=== PATIENT | male | born 1940 | race Caucasian/White ===

== ENCOUNTER → 2017-10-18 | Outpatient (CLI) | payer MEDICARE, OTHER ==
--- NOTE | 2017-10-18 15:07 | RADIOLOGY REPORT (SQ) ---
EXAM DESCRIPTION: CHEST PA/LAT COMPLETED DATE/TIME: 10/18/2017 2:41 pm REASON FOR STUDY: J20.9 ACUTE BRONCHITIS, UNSPECIFIED COMPARISON: 05/31/2009. EXAM PARAMETERS: NUMBER OF VIEWS: two views TECHNIQUE: Digital Frontal and Lateral radiographic views of the chest acquired. RADIATION DOSE: NA LIMITATIONS: none FINDINGS: LUNGS AND PLEURA: No opacities, masses or pneumothorax. No pleural effusion. MEDIASTINUM AND HILAR STRUCTURES: No masses or contour abnormalities. HEART AND VASCULAR STRUCTURES: Heart normal size. No evidence for failure. BONES: No acute findings. HARDWARE: None in the chest. OTHER: No other significant finding. IMPRESSION: NO SIGNIFICANT RADIOGRAPHIC FINDING IN THE CHEST. TECHNICAL DOCUMENTATION: JOB ID: [id number] [employer]- All Rights Reserved
== END ==
LOC: RAD 14:24
PROVIDERS: ATTEND Physician Assistant
DX: J20.9 Acute bronchitis, unspecified (principal)
CPT/HCPCS: 71020

== ENCOUNTER → 2019-09-01 | Outpatient (CLI) | payer MEDICARE, OTHER ==
[~2019-09-01] MED LIST: ALBUTEROL SULFATE 0.083% NEB 2.5 MG/3 ML AMPUL NEB ONE
== END ==
LOC: RT 08:13
PROVIDERS: ATTEND Physician Assistant
DX: J45.30 Mild persistent asthma, uncomplicated (principal); J43.9 Emphysema, unspecified; I10 Essential (primary) hypertension
CPT/HCPCS: 94729; 94727; 94060; A9270

== ENCOUNTER 2020-05-10 11:33 | Inpatient (IN) | payer OTHER, MEDICARE ==
[2020-05-10 11:57] LABS: ABSOLUTE BASOPHILS # (AUTO) 0.1 10^3/uL (0.0-0.2); ABSOLUTE LYMPHOCYTES (AUTO) 1.8 10^3/uL (0.5-4.7); ABSOLUTE MONOCYTES (AUTO) 1.2 10^3/uL (0.1-1.4); ABSOLUTE NEUT (AUTO) 8.3 10^3/uL (1.7-8.2); BASOPHILS % (AUTO) 0.7 % (0-2); EOSINOPHILS % (AUTO) 0.2 % (0-6); HEMATOCRIT 42.3 % (37.9-51.0); HEMOGLOBIN 14.3 g/dL (13.5-17.0); MEAN CORPUSCULAR HGB CONC 33.8 g/dL (32.0-36.0); MEAN CORPUSCULAR VOLUME 92 fl (80-97); MONOCYTES % (AUTO) 10.5 % (3-13); PLATELET COUNT 198 10^3/uL (150-450); RED CELL DISTRIBUTION WIDTH 14.1 % (11.5-14.0); SEGMENTED NEUTROPHILS % (AUTO) 72.6 % (42-78); TOTAL CELLS COUNTED % (AUTO) 100 %; WHITE BLOOD COUNT 11.5 10^3/uL (4.0-10.5)
[2020-05-10 12:16] LABS: ALKALINE PHOSPHATASE 65 U/L (38-126); ANION GAP 6 (5-19); ASPARTATE AMINO TRANSFERASE 47 U/L (17-59); BILIRUBIN,DIRECT 0.2 mg/dL (0.0-0.4); BILIRUBIN,TOTAL 0.9 mg/dL (0.2-1.3); BLOOD UREA NITROGEN 24 mg/dL (7-20); CALCIUM 8.6 mg/dL (8.4-10.2); CARBON DIOXIDE 28 mmol/L (22-30); CHLORIDE 99 mmol/L (98-107); GLUCOSE 131 mg/dL (75-110); POTASSIUM 4.7 mmol/L (3.6-5.0); TOTAL PROTEIN 6.8 g/dL (6.3-8.2)
--- NOTE | 2020-05-10 12:21 | RADIOLOGY REPORT (SQ) ---
EXAM DESCRIPTION: CHEST SINGLE VIEW IMAGES COMPLETED DATE/TIME: 05/10/2020 12:07 pm REASON FOR STUDY: shortness of breath COMPARISON: 10/18/2017 EXAM PARAMETERS: NUMBER OF VIEWS: One view. TECHNIQUE: Single frontal radiographic view of the chest acquired. RADIATION DOSE: NA LIMITATIONS: None. FINDINGS: LUNGS AND PLEURA: Bilateral peripheral interstitial airspace disease in the right upper lo be and left base. Findings may represent a viral pneumonitis. No definite effusions. MEDIASTINUM AND HILAR STRUCTURES: No masses. Contour normal. HEART AND VASCULAR STRUCTURES: Heart normal in size. Normal vasculature. BONES: No acute findings. HARDWARE: None in the chest. OTHER: No other significant finding. IMPRESSION: Patchy bilateral peripheral airspace disease. This may represent viral pneumonitis. At ypical pneumonia is also a possibility. TECHNICAL DOCUMENTATION: JOB ID: [id number] [email or web address]- All Rights Reserved Reading location - IP/workstation name: [email or web address]
[2020-05-10] MEDS ORDERED: NORMAL SALINE IV ONE (15:02)
[2020-05-10] MEDS ORDERED: CEFTRIAXONE 2 GM/D5W RTU 2 GM/50 ML RTUPB IV ONE (15:04)
[2020-05-10] MEDS ORDERED: AZITHROMYCIN 250 MG TABLET PO ONE (15:04)
--- NOTE | 2020-05-10 15:20 | ER Document Report ---
ED General - General Chief Complaint: Shortness Of Breath Stated Complaint: SHORTNESS OF BREATH Time Seen by Provider: 05/10/20 14:00 Mode of Arrival: Medic Information source: Patient TRAVEL OUTSIDE OF THE [place] IN LAST 30 DAYS: No - HPI Notes: Patient presents complaining of shortness of breath and generalized body aches. He states this is been going on for 3 to 4 days. He states that he believes his son-in-law may be positive for COVID and that he has been around his son-in-law. He went to his primary care doctor's office just before arriving here and was noticed to be hypoxic with an oxygen saturation in the 80s. He was therefore referred to emergency department for further care. He states he has had a nonproductive cough and congestion as well. He denies vomiting or diarrhea. He is unsure if he has had a fever but states he has had chills. Symptoms have been constant and moderate to severe. They are worse with exertion and better with rest. The body aches radiate throughout his body. - Related Data Allergies/Adverse Reactions: No Known Allergies Allergy (Verified 05/10/20 12:09) Past Medical History - General Information source: Patient - Social History Smoking Status: Former Smoker Frequency of alcohol use: None Drug Abuse: None Family History: Reviewed & Not Pertinent - Past Medical History Cardiac Medical History: Reports: Hx Hypertension Pulmonary Medical History: Reports: Hx COPD Review of Systems - Review of Systems Constitutional: Chills, Malaise, Weakness, Recent illness Cardiovascular: denies: Chest pain, Palpitations Respiratory: Cough, Short of breath -: Yes All other systems reviewed and negative Physical Exam - Vital signs Vitals: Pulse Ox 92 05/10/20 11:36 Interpretation: Hypoxic - On room air - General General appearance: Alert In distress: None - HEENT Head: Normocephalic, Atraumatic Eyes: Normal Pupils: PERRL - Respiratory Respiratory status: No respiratory distress Chest status: Nontender Breath sounds: Decreased air movement, Rhonchi Chest palpation: Normal - Cardiovascular Rhythm: Regular Heart sounds: Normal auscultation Murmur: No - Abdominal Inspection: Normal Distension: No distension Bowel sounds: Normal Tenderness: Nontender Organomegaly: No organomegaly - Back Back: Normal, Nontender - Extremities General upper extremity: Normal inspection, Nontender, Normal color, Normal ROM, Normal temperature General lower extremity: Normal inspection, Nontender, Normal color, Normal ROM, Normal temperature, Normal weight bearing. No: Stanley's sign - Neurological Neuro grossly intact: Yes Cognition: Normal Orientation: AAOx4 [place] Coma Scale Eye Opening: Spontaneous [place] Coma Scale Verbal: Oriented [place] Coma Scale Motor: Obeys Commands [place] Coma Scale Total: 15 Speech: Normal Motor strength normal: LUE, RUE, LLE, RLE Sensory: Normal - Psychological Associated symptoms: Normal affect, Normal mood - Skin Skin Temperature: Warm Skin Moisture: Dry Skin Color: Normal Course - Re-evaluation Re-evalutation: 05/10/20 15:14 Patient presents with symptoms suspicious for COVID. X-ray shows bilateral interstitial pneumonitis. He does have a history of COPD. I have initiated antibiotics. He states that he has been trying nebulizers at home and they have not helped. Since there is a suspicion for COVID I am not going to use nebulizers here. He is having an adequate oxygen saturation on supplemental oxygen at this time. Laboratories show some dehydration and a mild elevated white blood cell count but otherwise not remarkable. - Vital Signs Vital signs: Temp Pulse Resp BP Pulse Ox 98.4 F 66 16 118/63 92 05/10/20 12:03 05/10/20 12:03 05/10/20 12:03 05/10/20 12:03 05/10/20 12:03 - Laboratory Result Diagrams: 05/10/20 11:45 05/10/20 11:45 Laboratory results interpreted by me: 05/10/20 05/10/20 11:45 11:45 WBC 11.5 H RDW 14.1 H Absolute Neuts (auto) 8.3 H Sodium 133.3 L BUN 24 H Creatinine 1.41 H Est GFR ( Amer) 59 L Est GFR (MDRD) Non-Af 49 L Glucose 131 H - Diagnostic Test Radiology reviewed: Image reviewed, Reports reviewed Discharge - Discharge Clinical Impression: Pneumonia Qualifiers: Pneumonia type: due to unspecified organism Laterality: bilateral Lung location: upper lobe of lung Qualified Code(s): J18.9 - Pneumonia, unspecified organism Condition: Serious Disposition: ADMITTED INPATIENT Admitting Provider: Valentin (Hospitalist) Unit Admitted: Medical Floor
[2020-05-10] MEDS ORDERED: DEXAMETHASONE SOD PHOSPHATE INJ 4 MG/1 ML VIAL IV ONE (16:02)
[2020-05-10] MEDS ORDERED: ACETAMINOPHEN 325 MG TABLET PO PRN (16:03)
[2020-05-10] MEDS ORDERED: ONDANSETRON HCL INJ/PF 4 MG/2 ML SDV IV PRN (16:03)
[2020-05-10] MEDS ORDERED: RINGERS SOLUTION,LACTATED 1,000 ML IV PRN (16:03)
[2020-05-10 16:14] LABS: C-REACTIVE PROTEIN 167.3 mg/L (<10.0)
--- NOTE | 2020-05-10 16:24 | PDOC H&P ---
History of Present Illness History of Present Illness: LEENA HOWARD is a 79 year old male with a possible history of COPD, history of hypertension hyperlipidemia, who presents with shortness of breath. He said he has had a one-week history of cough, chills, and dyspnea. Cough is not been productive. He is not sure if he has had a fever. He denies any loss of sense of taste or smell. No abdominal pain, nausea, or vomiting. His son-in-law tested positive for COVID-19 and has since convalesced. He was around him some the previous week. He went to his primary care provider at the [place] and they sent him to [facility]. He was tested there for COVID-19 but was sent to the ER. The results of that test are not yet known. His white blood cell count was a little elevated, and he had multifocal opacities on chest x-ray. He smoked for about 20 years but has quit several years ago. Past Medical History Cardiac Medical History: Reports: Hypertension Pulmonary Medical History: Reports: Chronic Obstructive Pulmonary Disease (COPD) Social History Smoking Status: Former Smoker Family History Family History: Reviewed & Not Pertinent, Arthritis, CAD, Hyperlipidemia, Hypertension Parental Family History Reviewed: Yes Children Family History Reviewed: Yes Sibling(s) Family History Reviewed.: Yes Medication/Allergy Allergies/Adverse Reactions: No Known Allergies Allergy (Verified 05/10/20 12:09) Review of Systems All systems: reviewed and no additional remarkable complaints except as stated - All systems were reviewed and were negative except as noted in the HPI Physical Exam Vital Signs: Temp Pulse Resp BP Pulse Ox 98.4 F 66 16 118/63 92 05/10/20 12:03 05/10/20 12:03 05/10/20 12:03 05/10/20 12:03 05/10/20 12:03 Intake & Output 05/09/20 05/10/20 05/11/20 06:59 06:59 06:59 Weight 81.647 kg General appearance: PRESENT: cooperative, disheveled, mild distress, other - Displayed rigors Head exam: PRESENT: atraumatic, normocephalic Eye exam: PRESENT: EOMI, PERRLA. ABSENT: conjunctival injection, nystagmus, scleral icterus Ear exam: PRESENT: normal external ear exam Mouth exam: PRESENT: dry mucosa, neck supple Throat exam: ABSENT: post pharyngeal erythema Neck exam: PRESENT: full ROM. ABSENT: carotid bruit, JVD, lymphadenopathy, meningismus, tenderness, thyromegaly Respiratory exam: PRESENT: clear to auscultation shanna - Course, symmetrical, unlabored. ABSENT: accessory muscle use, chest wall tenderness, crackles, prolonged expiratory phas, rhonchi, tachypnea, wheezes Cardiovascular exam: PRESENT: RRR, +S1, +S2 Pulses: PRESENT: normal carotid pulses Vascular exam: PRESENT: normal capillary refill GI/Abdominal exam: PRESENT: normal bowel sounds, soft. ABSENT: distended, guarding, rebound, tenderness Extremities exam: ABSENT: clubbing, pedal edema Musculoskeletal exam: PRESENT: normal inspection. ABSENT: deformity Neurological exam: PRESENT: alert, awake, oriented to person, oriented to place, oriented to situation, CN II-XII grossly intact. ABSENT: motor sensory deficit Psychiatric exam: PRESENT: flat affect Skin exam: PRESENT: dry, warm, other - He appeared a little sweaty Results Laboratory Results: 05/10/20 11:45 05/10/20 11:45 05/10/20 05/10/20 11:45 11:45 WBC 11.5 H RBC 4.60 Hgb 14.3 Hct 42.3 MCV 92 MCH 31.0 MCHC 33.8 RDW 14.1 H Plt Count 198 Seg Neutrophils % 72.6 Sodium 133.3 L Potassium 4.7 Chloride 99 Carbon Dioxide 28 Anion Gap 6 BUN 24 H Creatinine 1.41 H Est GFR ( Amer) 59 L Glucose 131 H Calcium 8.6 Total Bilirubin 0.9 AST 47 Alkaline Phosphatase 65 Total Protein 6.8 Albumin 4.0 Impressions: Chest X-Ray 05/10/20 11:36 IMPRESSION: Patchy bilateral peripheral airspace disease. This may represent viral pneumonitis. Atypical pneumonia is also a possibility. Assessment and Plan - Diagnosis (1) Acute respiratory failure with hypoxia Is this a current diagnosis for this admission?: Yes Plan: Supplemental O2 to maintain SPO2 greater than 90% (2) Suspected COVID-19 virus infection Is this a current diagnosis for this admission?: Yes Plan: No nebulized bronchodilators or medications. We will try to use supplemental O2 per nasal cannula without using BiPAP. Currently this seems to be effective. He is hypoxic, so we will start dexamethasone. Several other lab tests are pending at this time. We will keep him on telemetry. Appropriate isolation pr ecautions. There was a test that was done outside the hospital and we are trying to get those results. We also did a rapid test here. If those tests are negative, were going to do the serum test. (3) History of COPD Is this a current diagnosis for this admission?: Yes Plan: Does not seem to be on any medications at home. If he needs a bronchodilator, we will use a metered-dose inhaler. (4) Hypertension Qualifiers: Hypertension type: essential hypertension Qualified Code(s): I10 - Essential (primary) hypertension Is this a current diagnosis for this admission?: Yes Plan: We will hold his antihypertensives for now because his blood pressures in the normal range (5) Hyperlipidemia Qualifiers: Hyperlipidemia type: other hyperlipidemia Qualified Code(s): E78.49 - Other hyperlipidemia; E78.4 - Other hyperlipidemia Is this a current diagnosis for this admission?: Yes Plan: Once we get his medications confirmed, we will continue his statin - Time Time Spent with patient: 35 or more minutes - Inpatient Certification Medical Necessity: Significant Comorbidiites Make Outpatient Treatment Too Risky, Need Close Monitoring Due to Risk of Patient Decompensation, Need For IV Fluids, Need For Continuous Telemetry Monitoring, Risk of Complication if Not Cared For in Hospital
--- NOTE | 2020-05-10 17:31 | EKG REPORT ---
SEVERITY:- NORMAL ECG - SINUS RHYTHM : Confirmed by: Lisa Fontana MD 10-May-2020 17:30:41
[2020-05-10 17:41] LABS: APPEARANCE,URINE CLEAR; BILIRUBIN,URINE NEGATIVE (NEGATIVE); COLOR,URINE YELLOW; GLUCOSE, URINE NEGATIVE (NEGATIVE); KETONES,URINE NEGATIVE (NEGATIVE); LEUKOCYTE ESTERASE,URINE NEGATIVE (NEGATIVE); NITRITE,URINE NEGATIVE (NEGATIVE); PROTEIN,URINE 30 mg/dL (NEGATIVE); URINE SPECIFIC GRAVITY 1.019; UROBILINOGEN,URINE NEGATIVE mg/dL (<2.0)
[2020-05-10 18:15] LABS: VENOUS BLOOD BASE EXCESS -1.9 mmol/L; VENOUS BLOOD HCO3 25.4 mmol/L (20-32); VENOUS BLOOD PCO2 53.5 mmHg (35-63); VENOUS BLOOD PH 7.29 (7.30-7.42)
[2020-05-10 18:20] LABS: INTERNATIONAL RATION (INR) 1.11; PROTHROMBIN TIME 14.3 SEC (11.4-15.4)
[2020-05-10 18:21] LABS: PARTIAL THROMBOPLASTIN TIME 33.1 SEC (23.5-35.8)
[2020-05-10 18:32] LABS: CREATINE KINASE 620 U/L (55-170)
[2020-05-10] MEDS: HEPARIN SOD (PORCINE) 5,000 UNIT/ML 1 ML VIAL SUBCUT SCH (22:00)
[2020-05-11] MEDS ORDERED: GUAIFENESIN SYRP 200 MG/10 ML UDC PO PRN (02:20)
[2020-05-11] MEDS ORDERED: GUAIFENESIN SYRP 200 MG/10 ML UDC PO ONE (02:30)
[2020-05-11] MEDS ORDERED: GUAIFENESIN 600 MG TABLET.SA PO ONE (03:00)
[2020-05-11] MEDS ORDERED: AZITHROMYCIN INJ 500 MG VIAL IV ONE ×2 (03:46→04:43)
[2020-05-11] MEDS ORDERED: PROMETHAZINE HCL INJ 25 MG/1 ML VIAL IV PRN (03:47)
[2020-05-11] MEDS ORDERED: RINGERS SOLUTION,LACTATED 1,000 ML IV ONE (03:48)
[2020-05-11] MEDS: RINGERS SOLUTION,LACTATED 1,000 ML IV PRN ×2 (05:30→21:16)
[2020-05-11] MEDS: HEPARIN SOD (PORCINE) 5,000 UNIT/ML 1 ML VIAL SUBCUT SCH ×3 (05:53→21:33)
[2020-05-11] MEDS ORDERED: IPRATROPIUM/ALBUTEROL 0.5-2.5 MG/3 ML AMPUL NEB ONE (06:07)
[2020-05-11] MEDS: GUAIFENESIN 600 MG TABLET.SA PO SCH ×2 (09:22→21:15)
[2020-05-11] MEDS: DEXAMETHASONE SOD PHOSPHATE INJ 4 MG/1 ML VIAL IV SCH (09:22)
[2020-05-11] MEDS: ALBUTEROL SULFATE HFA (90 MCG/PUFF) 200 PUFF/8.5 GM MDI IH SCH ×4 (09:23→17:29)
[2020-05-11] MEDS: CEFTRIAXONE 2 GM/D5W RTU 2 GM/50 ML RTUPB IV SCH (09:23)
--- NOTE | 2020-05-11 11:11 | RADIOLOGY REPORT (SQ) ---
EXAM DESCRIPTION: CHEST SINGLE VIEW IMAGES COMPLETED DATE/TIME: 05/11/2020 10:55 am REASON FOR STUDY: hypoxia COMPARISON: Previous day. NUMBER OF VIEWS: One view. TECHNIQUE: Single frontal radiographic image of the chest acquired. LIMITATIONS: None. FINDINGS: LUNGS AND PLEURA: More conspicuous bilateral interstitial opacities compared to yesterday. No large effusions. MEDIASTINUM AND HEART: Stable heart size and mediastinal structures. BONY STRUCTURES: No acute findings. HARDWARE: None. OTHER: No other significant finding. IMPRESSION: Rehydration versus progressing pneumonia or edema. TECHNICAL DOCUMENTATION: JOB ID: [id number] Reading location - IP/workstation name: [email or web address]
[2020-05-11] MEDS: IPRATROPIUM/ALBUTEROL 0.5-2.5 MG/3 ML AMPUL NEB PRN ×3 (11:44→23:57)
--- NOTE | 2020-05-11 16:46 | PDOC PROGRESS REPORT ---
Subjective Progress Note for:: 05/11/20 Subjective:: No adverse events overnight. He is more dyspneic today. When he uses the bedside urinal it takes a substantial effort and he normally gets hypoxic while he does it. He is currently on 5 L at rest and his oxygen saturation is 92%. Reason For Visit: COVID 19,ACUTE HYPOXIC RESPIRATORY FAILURE Physical Exam Vital Signs: Temp Pulse Resp BP Pulse Ox 99.2 F 71 18 149/58 H 97 05/10/20 19:56 05/11/20 14:00 05/11/20 11:48 05/10/20 19:56 05/11/20 11:48 Intake & Output 05/10/20 05/11/20 05/12/20 06:59 06:59 06:59 Intake Total 3760 50 Output Total 725 Balance 3035 50 Weight 81.64 kg General appearance: PRESENT: cooperative, disheveled, mild distress Respiratory exam: PRESENT: crackles - Diffuse, symmetrical, tachypnea, unlabored. ABSENT: accessory muscle use, chest wall tenderness, prolonged expiratory phas, rhonchi, wheezes Cardiovascular exam: PRESENT: RRR, +S1, +S2 Pulses: PRESENT: normal carotid pulses Vascular exam: PRESENT: normal capillary refill GI/Abdominal exam: PRESENT: normal bowel sounds, soft. ABSENT: distended, guarding, rebound, tenderness Extremities exam: ABSENT: clubbing, pedal edema Musculoskeletal exam: PRESENT: normal inspection. ABSENT: deformity Neurological exam: PRESENT: awake, oriented to person, oriented to place, oriented to situation Psychiatric exam: PRESENT: flat affect Skin exam: PRESENT: dry, warm Results Laboratory Results: 05/10/20 11:45 05/10/20 11:45 05/10/20 05/10/20 05/10/20 17:12 17:46 17:46 VBG pH 7.29 L VBG pCO2 53.5 VBG HCO3 25.4 VBG Base Excess -1.9 Lactic Acid 1.2 Urine Color YELLOW Urine Appearance CLEAR Urine pH 5.0 Ur Specific [place] 1.019 Urine Protein 30 H Urine Glucose (UA) NEGATIVE Urine Ketones NEGATIVE Urine Blood SMALL H Urine Nitrite NEGATIVE Ur Leukocyte Esterase NEGATIVE Urine WBC (Auto) 1 05/10/20 05/11/20 22:11 02:34 VBG pH VBG pCO2 VBG HCO3 VBG Base Excess Lactic Acid 0.8 2.7 H Urine Color Urine Appearance Urine pH Ur Specific [place] Urine Protein Urine Glucose (UA) Urine Ketones Urine Blood Urine Nitrite Ur Leukocyte Esterase Urine WBC (Auto) 05/10/20 05/10/20 05/11/20 17:46 17:46 02:34 Creatine Kinase 620 H CK-MB (CK-2) 4.33 Troponin I < 0.012 Impressions: Chest X-Ray 05/11/20 00:00 IMPRESSION: Rehydration versus progressing pneumonia or edema. Assessment and Plan - Diagnosis (1) Acute respiratory failure with hypoxia Is this a current diagnosis for this admission?: Yes Plan: Supplemental O2 to maintain SPO2 greater than 90% (2) Suspected COVID-19 virus infection Is this a current diagnosis for this admission?: Yes Plan: No nebulized bronchodilators or medications. We will try to use supplemental O2 per nasal cannula without using BiPAP. Currently this seems to be effective. He is on dexamethasone. His ferritin, d-dimer, CRP, and ESR are all elevated. The test that was done outside the hospital was a send out test it will take about a week to get back. The test they did in the ER was not a rapid test, it was the serum test. That result is not back yet. This is strongly suspicious for COVID-19. If we have trouble oxygenating him we will see if we can put a device on the head of the bed so that we can lay him prone. (3) History of COPD Is this a current diagnosis for this admission?: Yes Plan: Does not seem to be on any medications at home. If he needs a bronchodilator, we will use a metered-dose inhaler. (4) Hypertension Qualifiers: Hypertension type: essential hypertension Qualified Code(s): I10 - Essential (primary) hypertension Is this a current diagnosis for this admission?: Yes Plan: Blood pressures more elevated now, antihypertensive still on hold for the time being (5) Hyperlipidemia Qualifiers: Hyperlipidemia type: other hyperlipidemia Qualified Code(s): E78.49 - Other hyperlipidemia; E78.4 - Other hyperlipidemia Is this a current diagnosis for this admission?: Yes Plan: Continue statin - Time Time Spent with patient: 25-34 minutes
[2020-05-11 21:53] LABS: ARTERIAL BLOOD BASE EXCESS -1.9 mmol/L; ARTERIAL BLOOD H2CO3 1.12 mmol/L (1.05-1.35); ARTERIAL BLOOD HCO3 22.4 mmol/L (20-24); ARTERIAL BLOOD O2 SATURATION 86.4 % (94-98); ARTERIAL BLOOD PCO2 37.1 mmHg (35-45); ARTERIAL BLOOD PO2 51.1 mmHg (80-100); ARTERIAL BLOOD TOTAL CO2 23.5 mmol/L (23-27)
[2020-05-11 21:54] LABS: ARTERIAL BLOOD FIO2 100
[2020-05-12] MEDS: ALBUTEROL SULFATE HFA (90 MCG/PUFF) 200 PUFF/8.5 GM MDI IH SCH ×5 (00:13→23:06)
[2020-05-12] MEDS ORDERED: MORPHINE SULFATE 10 MG/ML INJ ONE ×2 (00:15→04:10)
[2020-05-12] MEDS ORDERED: MORPHINE SULFATE 10 MG/ML INJ IV ONE ×2 (01:00→05:00)
[2020-05-12] MEDS: IPRATROPIUM/ALBUTEROL 0.5-2.5 MG/3 ML AMPUL NEB PRN ×4 (02:42→21:32)
[2020-05-12] MEDS: HEPARIN SOD (PORCINE) 5,000 UNIT/ML 1 ML VIAL SUBCUT SCH ×3 (05:52→23:05)
[2020-05-12] MEDS: GUAIFENESIN 600 MG TABLET.SA PO SCH ×2 (10:19→23:05)
[2020-05-12] MEDS: CEFTRIAXONE 2 GM/D5W RTU 2 GM/50 ML RTUPB IV SCH (10:20)
[2020-05-12] MEDS: DEXAMETHASONE SOD PHOSPHATE INJ 4 MG/1 ML VIAL IV SCH ×2 (10:20→23:04)
[2020-05-12 12:05] LABS: HEMATOCRIT 42.2 % (37.9-51.0); HEMOGLOBIN 14.3 g/dL (13.5-17.0); MEAN CORPUSCULAR HEMOGLOBIN 30.9 pg (27.0-33.4); MEAN CORPUSCULAR HGB CONC 33.9 g/dL (32.0-36.0); MEAN CORPUSCULAR VOLUME 91 fl (80-97); PLATELET COUNT 282 10^3/uL (150-450); RED BLOOD COUNT 4.62 10^6/uL (4.35-5.55); RED CELL DISTRIBUTION WIDTH 14.1 % (11.5-14.0); WHITE BLOOD COUNT 19.7 10^3/uL (4.0-10.5)
[2020-05-12 12:21] LABS: ALBUMIN 3.7 g/dL (3.5-5.0); ALKALINE PHOSPHATASE 75 U/L (38-126); ANION GAP 6 (5-19); ASPARTATE AMINO TRANSFERASE 51 U/L (17-59); BILIRUBIN,DIRECT 0.1 mg/dL (0.0-0.4); BILIRUBIN,TOTAL 0.5 mg/dL (0.2-1.3); BLOOD UREA NITROGEN 15 mg/dL (7-20); CALCIUM 8.8 mg/dL (8.4-10.2); CARBON DIOXIDE 28 mmol/L (22-30); CHLORIDE 101 mmol/L (98-107); GLUCOSE 203 mg/dL (75-110); POTASSIUM 4.9 mmol/L (3.6-5.0); TOTAL PROTEIN 6.4 g/dL (6.3-8.2)
--- NOTE | 2020-05-12 12:27 | PDOC PROGRESS REPORT ---
Subjective Progress Note for:: 05/12/20 Subjective:: The patient remains on BiPAP. He is still tachypneic. He reports that he has not slept in several days. FiO2 is still at 50%. Reason For Visit: COVID 19,ACUTE HYPOXIC RESPIRATORY FAILURE Physical Exam Vital Signs: Temp Pulse Resp BP Pulse Ox 99.7 F 84 33 H 153/78 H 95 05/12/20 09:03 05/12/20 10:05 05/12/20 10:05 05/12/20 09:03 05/12/20 10:05 Intake & Output 05/11/20 05/12/20 05/13/20 06:59 06:59 06:59 Intake Total 3760 1650 1000 Output Total 725 2375 Balance 3035 -725 1000 Weight 81.64 kg 82.4 kg General appearance: PRESENT: cooperative, well-developed, other - Moderate distress Head exam: PRESENT: atraumatic, normocephalic Ear exam: PRESENT: normal external ear exam. ABSENT: bleeding, drainage Mouth exam: PRESENT: other - BiPAP mask in place Respiratory exam: PRESENT: rales - Fine rales bilaterally, symmetrical, tachypnea. ABSENT: rhonchi, wheezes Cardiovascular exam: PRESENT: RRR, +S1, +S2, systolic murmur - 2/6 GI/Abdominal exam: PRESENT: normal bowel sounds, soft. ABSENT: distended, guarding, tenderness Rectal exam: PRESENT: deferred Extremities exam: ABSENT: pedal edema, +1 edema Musculoskeletal exam: PRESENT: normal inspection Neurological exam: PRESENT: alert, awake, oriented to person, oriented to place, oriented to time, oriented to situation, CN II-XII grossly intact Psychiatric exam: PRESENT: anxious, appropriate affect - Affect reflects his anxiety in moderate distress. ABSENT: agitated Focused psych exam: ABSENT: delusional, paranoid, restlessness Skin exam: PRESENT: dry, warm. ABSENT: rash Results Laboratory Results: 05/11/20 05/12/20 21:22 11:50 Carbonic Acid 1.12 HCO3/H2CO3 Ratio 20:1 ABG pH 7.40 ABG pCO2 37.1 ABG pO2 51.1 L ABG HCO3 22.4 ABG O2 Saturation 86.4 L ABG Base Excess -1.9 FiO2 100 Lactic Acid 1.5 05/10/20 05/10/2020 17:46 17:46 02:34 Creatine Kinase 620 H CK-MB (CK-2) 4.33 Troponin I < 0.012 Impressions: Chest X-Ray 05/11/20 00:00 IMPRESSION: Rehydration versus progressing pneumonia or edema. Assessment and Plan - Diagnosis (1) Acute respiratory failure with hypoxia Is this a current diagnosis for this admission?: Yes Plan: Supplemental O2 to maintain SPO2 greater than 90% 05/12/2020 Patient is requiring BiPAP today. Oxygen needs have been up somewhat. I have discontinued the ceftriaxone and I will start vancomycin and cefepime. Continue to try and taper from BiPAP and subsequently taper some oxygen. (2) Suspected COVID-19 virus infection Is this a current diagnosis for this admission?: Yes Plan: No nebulized bronchodilators or medications. We will try to use supplemental O2 per nasal cannula without using BiPAP. Currently this seems to be effective. He is on dexamethasone. His ferritin, d-dimer, CRP, and ESR are all elevated. The test that was done outside the hospital was a send out test it will take about a week to get back. The test they did in the ER was not a rapid test, it was the serum test. That result is not back yet. This is strongly suspicious for COVID-19. If we have trouble oxygenating him we will see if we can put a device on the head of the bed so that we can lay him prone. 05/12/2020 12 with results not available yet. (3) Chronic obstructive pulmonary disease Qualifiers: COPD type: unspecified COPD Qualified Code(s): J44.9 - Chronic obstructive pulmonary disease, unspecified Is this a current diagnosis for this admission?: Yes Plan: May 12, 2020 Patient is not on any inhaler therapy. We are trying to avoid nebulizer treatments because of possible Covid-19 virus. If his test comes back negative we will initiate aggressive nebulizer treatments as well as the current treatment regimen (4) Hyperlipidemia Qualifiers: Hyperlipidemia type: other hyperlipidemia Qualified Code(s): E78.49 - Other hyperlipidemia; E78.4 - Other hyperlipidemia Is this a current diagnosis for this admission?: Yes Plan: Continue statin May 12, 2020 As above (5) Hypertension Qualifiers: Hypertension type: essential hypertension Qualified Code(s): I10 - Essential (primary) hypertension Is this a current diagnosis for this admission?: Yes Plan: Blood pressures more elevated now, antihypertensive still on hold for the time being May 12, 2020 (6) Depression Qualifiers: Depression Type: unspecified Qualified Code(s): F32.9 - Major depressive disorder, single episode, unspecified Is this a current diagnosis for this admission?: Yes Plan: May 12, 2020 Resume antidepressant medications. Some of his symptom complex could be related to anxiety. Certainly the lack of sleep could be partly due to interruption of medication. - Time Time Spent with patient: 15-24 minutes - Was able to speak to the patient's and son-in-law today Medications reviewed and adjusted accordingly: Yes Anticipated discharge: Home
[2020-05-12 12:28] LABS: ABSOLUTE MONOCYTES # (MANUAL) 2.8 10^3/uL (0.1-1.4); BAND NEUTROPHILS % (MANUAL) 1 % (3-5); BASOPHILS % (MANUAL) 0 % (0-2); EOSINOPHILS % (MANUAL) 0 % (0-6); LYMPHOCYTES % (MANUAL) 0 % (13-45); MONOCYTES % (MANUAL) 14 % (3-13); SEGMENTED NEUTROPHILS % (MAN) 85 % (42-78); TOTAL CELLS COUNTED 100
[2020-05-12 12:29] LABS: ANISOCYTOSIS SLIGHT; PLATELET COMMENT ADEQUATE
[2020-05-12] MEDS ORDERED: VANCOMYCIN HCL 0 MG in DEXTROSE 5%-WATER 250 ML IV NR (12:30)
[2020-05-12] MEDS: ZINC SULFATE 220 MG CAPSULE PO SCH (13:35)
[2020-05-12 14:01] LABS: ARTERIAL BLOOD BASE EXCESS 1.3 mmol/L; ARTERIAL BLOOD FIO2 50%; ARTERIAL BLOOD HCO3 24.9 mmol/L (20-24); ARTERIAL BLOOD O2 SATURATION 90.2 % (94-98); ARTERIAL BLOOD PCO2 36.6 mmHg (35-45); ARTERIAL BLOOD PH 7.45 (7.35-7.45)
[2020-05-12] MEDS: VANCOMYCIN HCL 750 MG in DEXTROSE 5%-WATER 250 ML IV SCH (15:15)
[2020-05-12] MEDS: ASCORBIC ACID 500 MG TABLET PO SCH (17:40)
[2020-05-12] MEDS ORDERED: DEXAMETHASONE SOD PHOSPHATE INJ 4 MG/1 ML VIAL IV SCH (22:00)
[2020-05-12] MEDS: QUETIAPINE FUMARATE 100 MG TABLET PO SCH (23:05)
[2020-05-12] MEDS: GABAPENTIN 300 MG CAPSULE PO SCH (23:05)
[2020-05-12] MEDS: MIRTAZAPINE 15 MG TABLET PO SCH (23:06)
[2020-05-12] MEDS: CEFEPIME 1 GM/D5W RTU 1 GM/50 ML RTUPB IV SCH (23:06)
[2020-05-13 04:36] LABS: HEPATITS B SURFACE ANTIGEN Negative (Negative)
[2020-05-13] MEDS: DEXAMETHASONE SOD PHOSPHATE INJ 4 MG/1 ML VIAL IV SCH ×3 (05:53→21:43)
[2020-05-13] MEDS: HEPARIN SOD (PORCINE) 5,000 UNIT/ML 1 ML VIAL SUBCUT SCH ×3 (05:53→21:43)
[2020-05-13] MEDS: VANCOMYCIN HCL 750 MG in DEXTROSE 5%-WATER 250 ML IV SCH ×2 (05:54→18:29)
[2020-05-13] MEDS: ALBUTEROL SULFATE HFA (90 MCG/PUFF) 200 PUFF/8.5 GM MDI IH SCH ×3 (05:54→18:06)
[2020-05-13 07:04] LABS: HEPATITIS C VIRUS ANTIBODY <0.1 s/co ratio (0.0-0.9)
[2020-05-13 07:08] LABS: HEMATOCRIT 39.3 % (37.9-51.0); HEMOGLOBIN 13.5 g/dL (13.5-17.0); MEAN CORPUSCULAR HEMOGLOBIN 30.8 pg (27.0-33.4); MEAN CORPUSCULAR HGB CONC 34.3 g/dL (32.0-36.0); MEAN CORPUSCULAR VOLUME 90 fl (80-97); PLATELET COUNT 255 10^3/uL (150-450); RED BLOOD COUNT 4.39 10^6/uL (4.35-5.55); RED CELL DISTRIBUTION WIDTH 14.1 % (11.5-14.0); WHITE BLOOD COUNT 12.8 10^3/uL (4.0-10.5)
[2020-05-13 07:28] LABS: ALBUMIN 3.2 g/dL (3.5-5.0); ALKALINE PHOSPHATASE 64 U/L (38-126); ANION GAP 6 (5-19); ASPARTATE AMINO TRANSFERASE 36 U/L (17-59); BILIRUBIN,DIRECT 0.1 mg/dL (0.0-0.4); BILIRUBIN,TOTAL 0.5 mg/dL (0.2-1.3); BLOOD UREA NITROGEN 19 mg/dL (7-20); CALCIUM 8.6 mg/dL (8.4-10.2); CARBON DIOXIDE 30 mmol/L (22-30); CHLORIDE 99 mmol/L (98-107); GLUCOSE 217 mg/dL (75-110); POTASSIUM 4.8 mmol/L (3.6-5.0); TOTAL PROTEIN 5.7 g/dL (6.3-8.2)
[2020-05-13] MEDS: IPRATROPIUM/ALBUTEROL 0.5-2.5 MG/3 ML AMPUL NEB PRN (08:15)
[2020-05-13 08:31] LABS: ABSOLUTE LYMPHOCYTES# (MANUAL) 0.6 10^3/uL (0.5-4.7); BAND NEUTROPHILS % (MANUAL) 1 % (3-5); BASOPHILS % (MANUAL) 0 % (0-2); EOSINOPHILS % (MANUAL) 0 % (0-6); LYMPHOCYTES % (MANUAL) 4 % (13-45); MONOCYTES % (MANUAL) 8 % (3-13); SEGMENTED NEUTROPHILS % (MAN) 86 % (42-78); TOTAL CELLS COUNTED 100
[2020-05-13 08:32] LABS: ANISOCYTOSIS SLIGHT; PLATELET COMMENT ADEQUATE; TOXIC VACUOLATION PRESENT
[2020-05-13] MEDS: CITALOPRAM HYDROBROMIDE 20 MG TABLET PO SCH (09:20)
[2020-05-13] MEDS: GUAIFENESIN 600 MG TABLET.SA PO SCH ×2 (09:20→21:42)
[2020-05-13] MEDS: ASCORBIC ACID 500 MG TABLET PO SCH ×2 (09:20→18:29)
[2020-05-13] MEDS: LISINOPRIL 10 MG TABLET PO SCH (09:20)
[2020-05-13] MEDS: GABAPENTIN 300 MG CAPSULE PO SCH ×2 (09:20→21:42)
[2020-05-13] MEDS: ZINC SULFATE 220 MG CAPSULE PO SCH (09:21)
--- NOTE | 2020-05-13 09:49 | PDOC PROGRESS REPORT ---
Subjective Progress Note for:: 05/13/20 Subjective:: 79 year old male with a possible history of COPD, history of hypertension hyperlipidemia, who presents with shortness of breath. He said he has had a one-week history of cough, chills, and dyspnea. Cough is not been productive. He is not sure if he has had a fever. He denies any loss of sense of taste or smell. No abdominal pain, nausea, or vomiting. His son-in-law tested positive for COVID-19 and has since convalesced. He was around him some the previous week. He went to his primary care provider at the [place] and they sent him to [facility]. He was tested there for COVID-19 but was sent to the ER. The results of that test are not yet known. His white blood cell count was a little elevated, and he had multifocal opacities on chest x-ray. He smoked for about 20 years but has quit several years ago. 05/11/20-No adverse events overnight. He is more dyspneic today. When he uses the bedside urinal it takes a substantial effort and he normally gets hypoxic while he does it. He is currently on 5 L at rest and his oxygen saturation is 92%. 05/12/20- No adverse events overnight. He is more dyspneic today. When he uses the bedside urinal it takes a substantial effort and he normally gets hypoxic while he does it. He is currently on 5 L at rest and his oxygen saturation is 92%. 05/13/2020-patient is not doing well. On 80% oxygen pulse ox is around 92%. On BiPAP. COVID is positive. Blood pressure is 130/66 temp is 98.6. On IV cefepime and Vanco. Plan is to do ABG and repeat chest x-ray today. Reason For Visit: COVID 19,ACUTE HYPOXIC RESPIRATORY FAILURE Physical Exam Vital Signs: Temp Pulse Resp BP Pulse Ox 98.6 F 71 42 H 130/66 H 90 L 05/13/20 00:20 05/13/20 07:00 05/13/20 04:44 05/13/20 00:20 05/13/20 04:44 Intake & Output 05/12/20 05/13/20 05/14/20 06:59 06:59 06:59 Intake Total 1650 1350 Output Total 2375 750 Balance -725 600 Weight 82.4 kg 80.9 kg General appearance: PRESENT: no acute distress, mild distress Head exam: PRESENT: atraumatic Eye exam: PRESENT: PERRLA Mouth exam: PRESENT: moist, tongue midline Teeth exam: PRESENT: poor dentation Neck exam: ABSENT: carotid bruit, JVD, lymphadenopathy, thyromegaly Respiratory exam: PRESENT: decreased breath sounds Cardiovascular exam: PRESENT: RRR. ABSENT: diastolic murmur, rubs, systolic murmur Pulses: PRESENT: normal dorsalis pedis pul GI/Abdominal exam: PRESENT: normal bowel sounds, soft. ABSENT: distended, guarding, mass, organolmegaly, rebound, tenderness Rectal exam: PRESENT: deferred Extremities exam: PRESENT: full ROM. ABSENT: calf tenderness, clubbing, pedal edema Neurological exam: PRESENT: alert, awake, oriented to person, oriented to place, oriented to time, oriented to situation, CN II-XII grossly intact. ABSENT: motor sensory deficit Psychiatric exam: PRESENT: appropriate affect, normal mood. ABSENT: homicidal ideation, suicidal ideation Results Laboratory Results: 05/13/20 06:32 05/13/20 06:32 05/12/20 05/12/20 05/12/20 11:04 11:50 11:50 WBC 19.7 H RBC 4.62 Hgb 14.3 Hct 42.2 MCV 91 MCH 30.9 MCHC 33.9 RDW 14.1 H Plt Count 282 Seg Neutrophils % Not Reportable Carbonic Acid 1.10 HCO3/H2CO3 Ratio 22:1 ABG pH 7.45 ABG pCO2 36.6 ABG pO2 55.0 L ABG HCO3 24.9 H ABG O2 Saturation 90.2 L ABG Base Excess 1.3 FiO2 50% Sodium 134.7 L Potassium 4.9 Chloride 101 Carbon Dioxide 28 Anion Gap 6 BUN 15 Creatinine 0.94 Est GFR ( Amer) > 60 Glucose 203 H Lactic Acid Calcium 8.8 Magnesium 2.3 Total Bilirubin 0.5 AST 51 Alkaline Phosphatase 75 Total Protein 6.4 Albumin 3.7 05/12/20 05/13/20 05/13/20 11:50 06:32 06:32 WBC 12.8 H RBC 4.39 Hgb 13.5 Hct 39.3 MCV 90 MCH 30.8 MCHC 34.3 RDW 14.1 H Plt Count 255 Seg Neutrophils % Not Reportable Carbonic Acid HCO3/H2CO3 Ratio ABG pH ABG pCO2 ABG pO2 ABG HCO3 ABG O2 Saturation ABG Base Excess FiO2 Sodium 134.5 L Potassium 4.8 Chloride 99 Carbon Dioxide 30 Anion Gap 6 BUN 19 Creatinine 0.94 Est GFR ( Amer) > 60 Glucose 217 H Lactic Acid 1.5 Calcium 8.6 Magnesium 2.7 H Total Bilirubin 0.5 AST 36 Alkaline Phosphatase 64 Total Protein 5.7 L Albumin 3.2 L 05/13/20 06:32 WBC RBC Hgb Hct MCV MCH MCHC RDW Plt Count Seg Neutrophils % Carbonic Acid HCO3/H2CO3 Ratio ABG pH ABG pCO2 ABG pO2 ABG HCO3 ABG O2 Saturation ABG Base Excess FiO2 Sodium Potassium Chloride Carbon Dioxide Anion Gap BUN Creatinine Est GFR ( Amer) Glucose Lactic Acid 1.2 Calcium Magnesium Total Bilirubin AST Alkaline Phosphatase Total Protein Albumin 05/10/20 05/10/20 05/11/20 17:46 17:46 02:34 Creatine Kinase 620 H CK-MB (CK-2) 4.33 Troponin I < 0.012 Impressions: Chest X-Ray 05/11/20 00:00 IMPRESSION: Rehydration versus progressing pneumonia or edema. Assessment and Plan - Diagnosis (1) Acute respiratory failure with hypoxia Is this a current diagnosis for this admission?: Yes Plan: Supplemental O2 to maintain SPO2 greater than 90% 05/12/2020 Patient is requiring BiPAP today. Oxygen needs have been up somewhat. I have discontinued the ceftriaxone and I will start vancomycin and cefepime. Continue to try and taper from BiPAP and subsequently taper some oxygen. 05/13/2020-pulse ox is 2 on 80% oxygen on BiPAP. To repeat the ABG onto the chest x-ray today. He is cpvid positive. pt wants be a full code including the intubation. WBC count is 12,800, temp is 98.6 presently on IV cefepime and vancomycin. (2) Suspected COVID-19 virus infection Is this a current diagnosis for this admission?: Yes Plan: No nebulized bronchodilators or medications. We will try to use supplemental O2 per nasal cannula without using BiPAP. Currently this seems to be effective. He is on dexamethasone. His ferritin, d-dimer, CRP, and ESR are all elevated. The test that was done outside the hospital was a send out test it will take about a week to get back. The test they did in the ER was not a rapid test, it was the serum test. That result is not back yet. This is strongly suspicious for COVID-19. If we have trouble oxygenating him we will see if we can put a device on the head of the bed so that we can lay him prone. 05/12/2020 12 with results not available yet. 05/13/2020-patient is COVID positive. Receiving dexamethasone at this time. Plan is to repeat the chest x-ray and ABG. Patient was to be a full code. To continue IV cefepime and IV vancomycin. (3) Chronic obstructive pulmonary disease Qualifiers: COPD type: unspecified COPD Qualified Code(s): J44.9 - Chronic obstructive pulmonary disease, unspecified Is this a current diagnosis for this admission?: Yes Plan: May 12, 2020 Patient is not on any inhaler therapy. We are trying to avoid nebulizer treatments because of possible Covid-19 virus. If his test comes back negative we will initiate aggressive nebulizer treatments as well as the current treatment regimen 05/13/2020-patient has history of COPD presently on BiPAP 80% oxygen supplementation and pulse ox is 92%. To do the chest x-ray and repeat the ABG today. To continue the antibiotic therapy at this time. (4) Hypertension Qualifiers: Hypertension type: essential hypertension Qualified Code(s): I10 - Essential (primary) hypertension Is this a current diagnosis for this admission?: Yes Plan: Blood pressures more elevated now, antihypertensive still on hold for the time being May 12, 2020 05/13/2020-blood pressure today is 130/66. Stable. Ervin is to continue the present management at this time.
[2020-05-13] MEDS ORDERED: (PENDING PHARMACY ID) (Lisinopril [Prinivil] 20 MG) PO SCH (10:00)
[2020-05-13] MEDS ORDERED: (PENDING PHARMACY ID) (Citalopram Hydrobromide [Citalopram Hbr] 40 MG) PO SCH (10:00)
[2020-05-13] MEDS ORDERED: LISINOPRIL 10 MG TABLET PO SCH (10:00)
--- NOTE | 2020-05-13 11:04 | RADIOLOGY REPORT (SQ) ---
EXAM DESCRIPTION: CHEST SINGLE VIEW IMAGES COMPLETED DATE/TIME: 05/13/2020 10:22 am REASON FOR STUDY: pneumonia COMPARISON: None. EXAM PARAMETERS: NUMBER OF VIEWS: One view. TECHNIQUE: Single frontal radiographic view of the chest acquired. RADIATION DOSE: NA LIMITATIONS: None. FINDINGS: LUNGS AND PLEURA: Cannot exclude pulmonary edema. There is increased opacification in bot h lung bases. MEDIASTINUM AND HILAR STRUCTURES: No masses. Contour normal. HEART AND VASCULAR STRUCTURES: Cardiomegaly. BONES: No acute findings. HARDWARE: None in the chest. OTHER: No other significant finding. IMPRESSION: Cardiomegaly. Cannot exclude pulmonary edema. Cannot exclude multicentric pneumonia. There does appear to be improvement in the appearance of the right upper lung. There is increased op acification in the right base. TECHNICAL DOCUMENTATION: JOB ID: [id number] [employer]- All Rights Reserved Reading location - IP/workstation name: [email or web address]
[2020-05-13] MEDS: CEFEPIME 1 GM/D5W RTU 1 GM/50 ML RTUPB IV SCH ×2 (11:30→21:43)
[2020-05-13 14:24] LABS: ARTERIAL BLOOD BASE EXCESS 6.5 mmol/L; ARTERIAL BLOOD H2CO3 1.23 mmol/L (1.05-1.35); ARTERIAL BLOOD HCO3 30.4 mmol/L (20-24); ARTERIAL BLOOD PCO2 40.8 mmHg (35-45); ARTERIAL BLOOD PH 7.49 (7.35-7.45); ARTERIAL BLOOD PO2 64.3 mmHg (80-100); ARTERIAL BLOOD TOTAL CO2 31.6 mmol/L (23-27)
[2020-05-13 14:25] LABS: ARTERIAL BLOOD FIO2 80%
[2020-05-13] MEDS ORDERED: LORAZEPAM INJ 2 MG/1 ML VIAL ONE (16:34)
[2020-05-13 17:32] LABS: ARTERIAL BLOOD BASE EXCESS 4.6 mmol/L; ARTERIAL BLOOD H2CO3 1.16 mmol/L (1.05-1.35); ARTERIAL BLOOD HCO3 28.2 mmol/L (20-24); ARTERIAL BLOOD O2 SATURATION 92.8 % (94-98); ARTERIAL BLOOD PCO2 38.4 mmHg (35-45); ARTERIAL BLOOD PH 7.48 (7.35-7.45); ARTERIAL BLOOD PO2 60.2 mmHg (80-100); ARTERIAL BLOOD TOTAL CO2 29.4 mmol/L (23-27)
[2020-05-13 17:34] LABS: ARTERIAL BLOOD FIO2 100%
[2020-05-13] MEDS ORDERED: FUROSEMIDE INJ/PF 20 MG/2 ML SDV IV ONE (18:00)
--- NOTE | 2020-05-13 18:03 | PDOC CRITICAL CARE PROG REPORT ---
General Date:: 05/13/20 Hospital Day:: 4 Resuscitation Status: Full Code Events in the past 12 to 24 Hours:: This 79-year-old male is seen in consultation at the request of Dr. Dos Santos for recommendations on further evaluation and management of respiratory distress/hypoxic respiratory failure. The patient has been admitted to the COVID unit at [facility] after presenting on 05/10/2020 with complaints of shortness of breath. He repeated a one-week history of cough, chills and dyspnea. He had a known confirmed COVID exposure (son-in-law). The patient has also been found to be positive for SARS-2-CoV infection. Dr. Perez contacted me with concerns that the patient was becoming more tachypneic. At the time of referral, the patient was on BiPAP 16/8, FiO2 80%. ABG had been drawn: pH 7.49, PCO2 41, PO2 64 on FiO2 80%. At the time of clinical interview, the patient is fully conversant. He is notably tachypneic, respiratory rate 38. Respiratory therapy is in the process of making adjustments to his ventilatory support settings. At the bedside, the patient was changed to CPAP 10, FiO2 100%. SPO2 was 94%. Review of systems relevant to events:: Respiratory: COVID-19 pneumonia, acute hypoxemic respiratory failure. Reason for ICU Addmission:: No need for ICU admission at this time. - Medications: Medications reviewed and adjusted accordingly: Yes Physical Exam Vital Signs: Temp Pulse Resp BP Pulse Ox 98.1 F 66 44 H 120/62 94 05/13/20 15:18 05/13/20 15:18 05/13/20 17:39 05/13/20 15:18 05/13/20 17:39 Intake & Output 05/12/20 05/13/20 05/14/20 06:59 06:59 06:59 Intake Total 1650 1350 540 Output Total 2375 750 500 Balance -725 600 40 Weight 82.4 kg 80.9 kg Weight/Height Weight 80.9 kg Height 1.73 m General appearance: PRESENT: well-developed, well-nourished, other - Tolerating CPAP/BiPAP. Tachypneic. Head exam: PRESENT: atraumatic, normocephalic Eye exam: PRESENT: conjunctiva pink, EOMI, PERRLA. ABSENT: scleral icterus Mouth exam: PRESENT: dry mucosa, moist, tongue midline Neck exam: PRESENT: JVD. ABSENT: carotid bruit, lymphadenopathy, thyromegaly, tracheal deviation Respiratory exam: PRESENT: crackles, rales. ABSENT: prolonged expiratory phas, rhonchi, wheezes Cardiovascular exam: PRESENT: RRR. ABSENT: diastolic murmur, rubs, systolic murmur Pulses: PRESENT: normal dorsalis pedis pul Vascular exam: PRESENT: normal capillary refill Extremities exam: PRESENT: +1 edema - Left lower extremity. ABSENT: pedal edema Musculoskeletal exam: PRESENT: normal inspection. ABSENT: deformity Neurological exam: PRESENT: alert, awake, oriented to person, oriented to place, oriented to time, oriented to situation, CN II-XII grossly intact. ABSENT: motor sensory deficit Psychiatric exam: PRESENT: anxious, appropriate affect Skin exam: PRESENT: dry, intact, warm. ABSENT: cyanosis, rash Laboratory/Radiographs Laboratory Results: 05/13/20 06:32 05/13/20 06:32 05/13/20 05/13/20 05/13/20 06:32 06:32 06:32 WBC 12.8 H RBC 4.39 Hgb 13.5 Hct 39.3 MCV 90 MCH 30.8 MCHC 34.3 RDW 14.1 H Plt Count 255 Seg Neutrophils % Not Reportable Carbonic Acid HCO3/H2CO3 Ratio ABG pH ABG pCO2 ABG pO2 ABG HCO3 ABG O2 Saturation ABG Base Excess FiO2 Sodium 134.5 L Potassium 4.8 Chloride 99 Carbon Dioxide 30 Anion Gap 6 BUN 19 Creatinine 0.94 Est GFR ( Amer) > 60 Glucose 217 H Lactic Acid 1.2 Calcium 8.6 Magnesium 2.7 H Total Bilirubin 0.5 AST 36 Alkaline Phosphatase 64 Total Protein 5.7 L Albumin 3.2 L 05/13/20 05/13/20 14:00 17:15 WBC RBC Hgb Hct MCV MCH MCHC RDW Plt Count Seg Neutrophils % Carbonic Acid 1.23 1.16 HCO3/H2CO3 Ratio 24:1 24:1 ABG pH 7.49 H 7.48 H ABG pCO2 40.8 38.4 ABG pO2 64.3 L 60.2 L ABG HCO3 30.4 H 28.2 H ABG O2 Saturation 94.0 92.8 L ABG Base Excess 6.5 4.6 FiO2 80% 100% Sodium Potassium Chloride Carbon Dioxide Anion Gap BUN Creatinine Est GFR ( Amer) Glucose Lactic Acid Calcium Magnesium Total Bilirubin AST Alkaline Phosphatase Total Protein Albumin 05/10/20 05/10/20 05/11/20 17:46 17:46 02:34 Creatine Kinase 620 H CK-MB (CK-2) 4.33 Troponin I < 0.012 Impressions: Chest X-Ray 05/13/20 00:00 IMPRESSION: Cardiomegaly. Cannot exclude pulmonary edema. Cannot exclude multicentric pneumonia. There does appear to be improvement in the appearance of the right upper lung. There is increased opacification in the right base. All labs, radiographs, diagnostic studies and EKGs were personally reviewed: Yes In addition, reports of radiographic and diagnostic studies were read: Yes Assessment and Plan - Diagnosis (1) Acute hypoxemic respiratory failure due to COVID-19 Is this a current diagnosis for this admission?: Yes Plan: * At this time, there is no indication for BiPAP support for this patient, who is currently hyperventilating. CPAP would be preferred. Set FiO2 to 100%. Titrate CPAP pressure, as tolerated to maintain SPO2 greater than 88%. * Alternatively, if a heated humidified high flow nasal cannula becomes available, the patient may be trialed on 60 LPM with FiO2 100%. On the high flow nasal cannula, the patient should have the flow rate titrated (again, leaving FiO2 at 100%). * STAT left lower extremity ultrasound to rule out DVT (diagnosis: Swelling). If positive, heparin infusion should be initiated. * Furosemide 20 mg IV single dose. * I did have a discussion with the patient about advanced directives and goals of care. It is clear that the patient should remain full code at this time. However, I have explained to the patient that premature endotracheal in tubation with mechanical ventilatory support could prove detrimental in the long-term by unnecessarily prolonging the duration of mechanical ventilatory support (if he proves to need such support). * ICU level care is not required at this time. Critical Time Critical Time (minutes): 45 Level of Care: IMCU -: 1. The care of a critical patient is a dynamic process. This note is a sales representative grocer[employer] synopsis but static in nature. The timeframe for treatments given in order is not necessarily the actual time these treatments may have been done. 2. This patient requires critical care secondary to ongoing requirements for therapy not offered or safe outside the critical care environment. Transfer to a lower level of care will result in altered life or limb morbidity and mortality. 3. Multidisciplinary rounds completed. 4. ABCDE bundle addressed.
--- NOTE | 2020-05-13 21:09 | RADIOLOGY REPORT (SQ) ---
EXAM DESCRIPTION: [employer]: US EXTREMITY VEINS BILATERAL CLINICAL HISTORY: 79 years Male; r/o dvt TECHNIQUE: Multiple grayscale sonographic images of both legs were obtained utilizing a high-frequency linear array transducer supplemented with color Doppler, compression and augmentation techniques. COMPARISON: None. FINDINGS: Right leg veins: Common femoral: normal Greater saphenous: normal upper Superficial femoral: normal mid Superficial femoral: normal lower Superficial femoral: normal Popliteal: normal Posterior Tibial: normal Left leg veins: Common femoral: normal Greater saphenous: normal upper Superficial femoral: normal mid Superficial femoral: normal lower Superficial femoral: normal Popliteal: normal Posterior Tibial: normal IMPRESSION: 1. No sonographic evidence for lower extremity deep venous thrombosis in either leg.
[2020-05-13] MEDS: QUETIAPINE FUMARATE 100 MG TABLET PO SCH (21:42)
[2020-05-13] MEDS: MIRTAZAPINE 15 MG TABLET PO SCH (21:42)
[2020-05-14] MEDS: ALBUTEROL SULFATE HFA (90 MCG/PUFF) 200 PUFF/8.5 GM MDI IH SCH ×5 (04:24→23:07)
[2020-05-14 06:16] LABS: HEMATOCRIT 38.4 % (37.9-51.0); HEMOGLOBIN 13.3 g/dL (13.5-17.0); MEAN CORPUSCULAR HEMOGLOBIN 30.9 pg (27.0-33.4); MEAN CORPUSCULAR HGB CONC 34.6 g/dL (32.0-36.0); MEAN CORPUSCULAR VOLUME 89 fl (80-97); PLATELET COUNT 296 10^3/uL (150-450)
[2020-05-14 06:33] LABS: ARTERIAL BLOOD BASE EXCESS -0.4 mmol/L; ARTERIAL BLOOD H2CO3 0.99 mmol/L (1.05-1.35); ARTERIAL BLOOD HCO3 22.8 mmol/L (20-24); ARTERIAL BLOOD O2 SATURATION 90.2 % (94-98); ARTERIAL BLOOD PCO2 32.9 mmHg (35-45); ARTERIAL BLOOD PH 7.46 (7.35-7.45); ARTERIAL BLOOD PO2 54.3 mmHg (80-100); ARTERIAL BLOOD TOTAL CO2 23.8 mmol/L (23-27)
[2020-05-14 06:34] LABS: ALBUMIN 3.2 g/dL (3.5-5.0); ALKALINE PHOSPHATASE 68 U/L (38-126); ANION GAP 6 (5-19); ASPARTATE AMINO TRANSFERASE 42 U/L (17-59); BILIRUBIN,TOTAL 0.7 mg/dL (0.2-1.3); BLOOD UREA NITROGEN 31 mg/dL (7-20); CALCIUM 8.5 mg/dL (8.4-10.2); CARBON DIOXIDE 30 mmol/L (22-30); CHLORIDE 100 mmol/L (98-107); GLUCOSE 181 mg/dL (75-110); POTASSIUM 4.8 mmol/L (3.6-5.0); TOTAL PROTEIN 5.9 g/dL (6.3-8.2); VANCOMYCIN,TROUGH 6.8 ug/mL (5.0-20.0)
[2020-05-14 06:34] LABS: ARTERIAL BLOOD FIO2 100%
[2020-05-14 06:41] LABS: ABSOLUTE LYMPHOCYTES# (MANUAL) 0.5 10^3/uL (0.5-4.7); ABSOLUTE MONOCYTES # (MANUAL) 0.5 10^3/uL (0.1-1.4); BASOPHILS % (MANUAL) 0 % (0-2); EOSINOPHILS % (MANUAL) 0 % (0-6); LYMPHOCYTES % (MANUAL) 4 % (13-45); MONOCYTES % (MANUAL) 4 % (3-13); SEGMENTED NEUTROPHILS % (MAN) 92 % (42-78); TOTAL CELLS COUNTED 100
[2020-05-14] MEDS: DEXAMETHASONE SOD PHOSPHATE INJ 4 MG/1 ML VIAL IV SCH ×3 (06:42→22:21)
[2020-05-14] MEDS: HEPARIN SOD (PORCINE) 5,000 UNIT/ML 1 ML VIAL SUBCUT SCH ×3 (06:43→22:21)
[2020-05-14 06:44] LABS: ANISOCYTOSIS SLIGHT
[2020-05-14] MEDS: VANCOMYCIN HCL 750 MG in DEXTROSE 5%-WATER 250 ML IV SCH (06:44)
[2020-05-14 06:45] LABS: PLATELET CLUMPS PRESENT; PLATELET COMMENT ADEQUATE; TEAR DROP CELLS SLIGHT
[2020-05-14] MEDS ORDERED: PROPOFOL INJ 200 MG/20 ML VIAL IV ONE (08:57)
--- NOTE | 2020-05-14 09:09 | PDOC PROGRESS REPORT ---
Subjective Progress Note for:: 05/14/20 Subjective:: 79 year old male with a possible history of COPD, history of hypertension hyperlipidemia, who presents with shortness of breath. He said he has had a one-week history of cough, chills, and dyspnea. Cough is not been productive. He is not sure if he has had a fever. He denies any loss of sense of taste or smell. No abdominal pain, nausea, or vomiting. His son-in-law tested positive for COVID-19 and has since convalesced. He was around him some the previous week. He went to his primary care provider at the [facility] and they sent him to [facility]. He was tested there for COVID-19 but was sent to the ER. The results of that test are not yet known. His white blood cell count was a little elevated, and he had multifocal opacities on chest x-ray. He smoked for about 20 years but has quit several years ago. 05/11/20-No adverse events overnight. He is more dyspneic today. When he uses the bedside urinal it takes a substantial effort and he normally gets hypoxic while he does it. He is currently on 5 L at rest and his oxygen saturation is 92%. 05/12/20- No adverse events overnight. He is more dyspneic today. When he uses the bedside urinal it takes a substantial effort and he normally gets hypoxic while he does it. He is currently on 5 L at rest and his oxygen saturation is 92%. 05/13/2020-patient is not doing well. On 80% oxygen pulse ox is around 92%. On BiPAP. COVID is positive. Blood pressure is 130/66 temp is 98.6. On IV cefepime and Vanco. Plan is to do ABG and repeat chest x-ray today. 05/14/2020-patient condition is critical. Not doing well. Patient is on cpap at 10 , 100% oxygen ABG this morning pH is 7.46/PCO2 33/PO2 54 oxygen saturation is 90%. Looks like ARDS picture. Repeat chest x-ray requested for today. On e xamination patient looks tired and tachypneic. Her respiratory rate in the 40s. Patient may end up in a rapid response. So anesthesia was called for intubation, because the patient is COVID positive , the request is to move him to ICU for the intubation. Patient got a bed in ICU room #604 he will be moved there for intubation. Reason For Visit: COVID 19,ACUTE HYPOXIC RESPIRATORY FAILURE Physical Exam Vital Signs: Temp Pulse Resp BP Pulse Ox 98.5 F 62 51 H 123/66 95 05/14/20 07:50 05/14/20 07:50 05/14/20 08:10 05/14/20 07:50 05/14/20 08:10 Intake & Output 05/13/20 05/14/20 05/15/20 06:59 06:59 06:59 Intake Total 1350 790 Output Total 750 1525 Balance 600 -735 Weight 80.9 kg 80.5 kg General appearance: PRESENT: other - Patient is in moderate distress. Head exam: PRESENT: atraumatic Eye exam: PRESENT: PERRLA Mouth exam: PRESENT: dry mucosa, other - lips looks pale. Teeth exam: PRESENT: poor dentation Neck exam: ABSENT: carotid bruit, JVD, lymphadenopathy, thyromegaly Respiratory exam: PRESENT: decreased breath sounds, other - Patient is tachypneic respiratory rate in the 40s. Bilateral air entry was decreased but no crackles no wheezing present. Cardiovascular exam: PRESENT: RRR. ABSENT: diastolic murmur, rubs, systolic murmur GI/Abdominal exam: PRESENT: other - bpwel sounds are sluggish. Rectal exam: PRESENT: deferred Extremities exam: PRESENT: full ROM. ABSENT: calf tenderness, clubbing, pedal edema Neurological exam: PRESENT: awake, CN II-XII grossly intact, other - Lethargic, less responsive.. ABSENT: motor sensory deficit Psychiatric exam: PRESENT: appropriate affect, normal mood. ABSENT: homicidal ideation, suicidal ideation Skin exam: PRESENT: dry, intact, warm. ABSENT: cyanosis, rash Results Laboratory Results: 05/14/20 05:32 05/14/20 05:32 05/13/20 05/13/20 05/13/20 14:00 17:15 19:27 WBC RBC Hgb Hct MCV MCH MCHC RDW Plt Count Seg Neutrophils % Carbonic Acid 1.23 1.16 HCO3/H2CO3 Ratio 24:1 24:1 ABG pH 7.49 H 7.48 H ABG pCO2 40.8 38.4 ABG pO2 64.3 L 60.2 L ABG HCO3 30.4 H 28.2 H ABG O2 Saturation 94.0 92.8 L ABG Base Excess 6.5 4.6 FiO2 80% 100% Sodium Potassium Chloride Carbon Dioxide Anion Gap BUN Creatinine Est GFR ( Amer) Glucose Calcium Phosphorus 3.3 Magnesium Total Bilirubin AST Alkaline Phosphatase Total Protein Albumin 05/14/20 05/14/20 05/14/20 05:32 05:32 06:12 WBC 13.0 H RBC 4.30 L Hgb 13.3 L Hct 38.4 MCV 89 MCH 30.9 MCHC 34.6 RDW 14.0 Plt Count 296 Seg Neutrophils % Not Reportable Carbonic Acid 0.99 L HCO3/H2CO3 Ratio 23:1 ABG pH 7.46 H ABG pCO2 32.9 L ABG pO2 54.3 L ABG HCO3 22.8 ABG O2 Saturation 90.2 L ABG Base Excess -0.4 FiO2 100% Sodium 135.7 L Potassium 4.8 Chloride 100 Carbon Dioxide 30 Anion Gap 6 BUN 31 H Creatinine 1.04 Est GFR ( Amer) > 60 Glucose 181 H Calcium 8.5 Phosphorus Magnesium 2.8 H Total Bilirubin 0.7 AST 42 Alkaline Phosphatase 68 Total Protein 5.9 L Albumin 3.2 L 05/10/20 05/10/20 05/11/20 17:46 17:46 02:34 Creatine Kinase 620 H CK-MB (CK-2) 4.33 Troponin I < 0.012 Impressions: Chest X-Ray 05/13/20 00:00 IMPRESSION: Cardiomegaly. Cannot exclude pulmonary edema. Cannot exclude multicentric pneumonia. There does appear to be improvement in the appearance of the right upper lung. There is increased opacification in the right base. Venous Doppler Study 05/13/20 00:00 IMPRESSION: 1. No sonographic evidence for lower extremity deep venous thrombosis in either leg. Assessment and Plan - Diagnosis (1) Acute respiratory failure with hypoxia Is this a current diagnosis for this admission?: Yes Plan: Supplemental O2 to maintain SPO2 greater than 90% 05/12/2020 Patient is requiring BiPAP today. Oxygen needs have been up somewhat. I have discontinued the ceftriaxone and I will start vancomycin and cefepime. Continue to try and taper from BiPAP and subsequently taper some oxygen. 05/13/2020-pulse ox is 2 on 80% oxygen on BiPAP. To repeat the ABG onto the chest x-ray today. He is cpvid positive. pt wants be a full code including the i ntubation. WBC count is 12,800, temp is 98.6 presently on IV cefepime and vancomycin. 05/14/2020-patient is on CPAP rate of 10 100% oxygen. pH 7.46/PC O2 33/PO2 54/oxygen saturation is 90%. This is 100% oxygen the ABG indicative of ARDS. (2) Suspected COVID-19 virus infection Is this a current diagnosis for this admission?: Yes Plan: No nebulized bronchodilators or medications. We will try to use supplemental O2 per nasal cannula without using BiPAP. Currently this seems to be effective. He is on dexamethasone. His ferritin, d-dimer, CRP, and ESR are all elevated. The test that was done outside the hospital was a send out test it will take about a week to get back. The test they did in the ER was not a rapid test, it was the serum test. That result is not back yet. This is strongly suspicious for COVID-19. If we have trouble oxygenating him we will see if we can put a device on the head of the bed so that we can lay him prone. 05/12/2020 12 with results not available yet. 05/13/2020-patient is COVID positive. Receiving dexamethasone at this time. Plan is to repeat the chest x-ray and ABG. Patient was to be a full code. To continue IV cefepime and IV vancomycin. 05/14/2020-patient is COVID positive receiving dexamethasone. White cell count is 13,000 today. ABG indicates oxygen levels are not improving on CPAP 100% oxygen. Request anesthesia for intubation. Patient will be moved to ICU for intubation and further management. (3) Chronic obstructive pulmonary disease Qualifiers: COPD type: unspecified COPD Qualified Code(s): J44.9 - Chronic obstructive pulmonary disease, unspecified Is this a current diagnosis for this admission?: Yes Plan: May 12, 2020 Patient is not on any inhaler therapy. We are trying to avoid nebulizer treatments because of possible Covid-19 virus. If his test comes back negative we will initiate aggressive nebulizer treatments as well as the current treatment regimen 05/13/2020-patient has history of COPD presently on BiPAP 80% oxygen supplementation and pulse ox is 92%. To do the chest x-ray and repeat the ABG today. To continue the antibiotic therapy at this time. 05/14/2020-patient is on CPAP at 10 on 100% oxygen PO2 in the ABG is 54%. Patient will be moved to ICU for intubation. (4) Hypertension Qualifiers: Hypertension type: essential hypertension Qualified Code(s): I10 - Essential (primary) hypertension Is this a current diagnosis for this admission?: Yes Plan: Blood pressures more elevated now, antihypertensive still on hold for the time being May 12, 2020 05/13/2020-blood pressure today is 130/66. Stable. plan is to continue the present management at this time. 05/14/2020-blood pressure today is 120/62. Stable.
--- NOTE | 2020-05-14 09:49 | RADIOLOGY REPORT (SQ) ---
EXAM DESCRIPTION: CHEST SINGLE VIEW IMAGES COMPLETED DATE/TIME: 05/14/2020 9:16 am REASON FOR STUDY: resp failure COMPARISON: Chest films 05/13/2020, 05/11/2020, 05/10/2020 EXAM PARAMETERS: NUMBER OF VIEWS: One view. TECHNIQUE: Single frontal radiographic view of the chest acquired. RADIATION DOSE: NA LIMITATIONS: None. FINDINGS: There is supraclavicular soft tissue air right greater than left, and a small amount of up per pneumomediastinum. Findings called to Dr. Mae, 0915 hours 05/14/2020 LUNGS AND PLEURA: Increased interstitial markings over the mid and lower lungs bilaterally from inter stitial edema or pneumonia. This is similar compared to 05/13/2020 and 05/11/2020 No pneumothorax. No pleural effusions. MEDIASTINUM AND HILAR STRUCTURES: Small amount of supraclavicular air and pneumomediastinum at the th oracic inlet. HEART AND VASCULAR STRUCTURES: Heart normal in size. Normal vasculature. BONES: No acute findings. HARDWARE: None in the chest. OTHER: No other significant finding. IMPRESSION: Upper pneumomediastinum/supraclavicular air Increased interstitial markings in the mid and lower lungs worrisome for either fluid overload or int erstitial pneumonia TECHNICAL DOCUMENTATION: JOB ID: [id number] 2010 [employer]- All Rights Reserved Reading location - IP/workstation name: [email or web address]
[2020-05-14 10:49] LABS: ARTERIAL BLOOD BASE EXCESS 6.3 mmol/L; ARTERIAL BLOOD FIO2 100%; ARTERIAL BLOOD HCO3 30.7 mmol/L (20-24); ARTERIAL BLOOD O2 SATURATION 91.6 % (94-98); ARTERIAL BLOOD PCO2 43.1 mmHg (35-45); ARTERIAL BLOOD PH 7.47 (7.35-7.45); ARTERIAL BLOOD PO2 57.9 mmHg (80-100)
[2020-05-14] MEDS ORDERED: AZITHROMYCIN 500 MG in DEXTROSE 5%-WATER 250 ML IV SCH (11:00)
[2020-05-14] MEDS: CITALOPRAM HYDROBROMIDE 20 MG TABLET PO SCH (11:30)
[2020-05-14] MEDS: GUAIFENESIN 600 MG TABLET.SA PO SCH ×2 (11:30→22:21)
[2020-05-14] MEDS: LISINOPRIL 10 MG TABLET PO SCH (11:30)
[2020-05-14] MEDS: GABAPENTIN 300 MG CAPSULE PO SCH (13:27)
[2020-05-14] MEDS: ASCORBIC ACID 500 MG TABLET PO SCH (13:34)
[2020-05-14] MEDS: ZINC SULFATE 220 MG CAPSULE PO SCH (13:35)
[2020-05-14] MEDS: CEFEPIME 1 GM/D5W RTU 1 GM/50 ML RTUPB IV SCH ×2 (14:08→22:21)
[2020-05-14] MEDS: HYDROXYCHLOROQUINE SULFATE 200 MG TABLET PO SCH ×4 (14:09→22:22)
--- NOTE | 2020-05-14 15:11 | Operative Report ---
Bedside Procedure - History of Present Illness History of Present Illness: LEENA HOWARD is a 79 year old male with a possible history of COPD, history of hypertension hyperlipidemia, who presents with shortness of breath. He said he has had a one-week history of cough, chills, and dyspnea. Cough is not been productive. He is not sure if he has had a fever. He denies any loss of sense of taste or smell. No abdominal pain, nausea, or vomiting. His son-in-law tested positive for COVID-19 and has since convalesced. He was around him some the previous week. He went to his primary care provider at the [facility] and they sent him to [facility]. He was tested there for COVID-19 but was sent to the ER. The results of that test are not yet known. His white blood cell count was a little elevated, and he had multifocal opacities on chest x-ray. He smoked for about 20 years but has quit several years ago. Indication for Procedure: frequent blood draws; central venous pressure monitoring; medication/fluid Date: 05/14/20 Provider: [facility] - Central Line Right Internal jugular Time completed: 15:10 Consent obtained: Yes Central line pre-insertion: Sterile PPE donned, Chloraprep applied, Sterile drapes applied Central line lumen type: Triple Anesthetic type: 1% Lidocaine mL's of anesthesia: 5 Ultrasound guided: Yes CM at insertion site: 19 Line secured with sutures: Yes Central line post-insertion: Blood return from lumens, Biopatch applied, Sutured, Sterile dressing applied, Position confirmed w/ CXR Number of attempts: 1 Complications: No
--- NOTE | 2020-05-14 16:00 | PDOC CRITICAL CARE PROG REPORT ---
General Date:: 05/14/20 ICU Day:: 1 Hospital Day:: 5 Resuscitation Status: Full Code Events in the past 12 to 24 Hours:: 05/13: This 79-year-old male is seen in consultation at the request of Dr. Shane Perez for recommendations on further evaluation and management of respiratory distress/hypoxic respiratory failure. The patient has been admitted to the COVID unit at [facility] after presenting on 05/10/2020 with complaints of shortness of breath. He repeated a one-week history of cough, chills and dyspnea. He had a known confirmed COVID exposure (son-in-law). The patient has also been found to be positive for SARS-2-CoV infection. Dr. Perez contacted me with concerns that the patient was becoming more tac hypneic. At the time of referral, the patient was on BiPAP 16/8, FiO2 80%. ABG had been drawn: pH 7.49, PCO2 41, PO2 64 on FiO2 80%. At the time of clinical interview, the patient is fully conversant. He is notably tachypneic, respiratory rate 38. Respiratory therapy is in the process of making adjustments to his ventilatory support settings. At the bedside, the patient was changed to CPAP 10, FiO2 100%. SPO2 was 94%. 05/14: The patient was transferred to ICU. However, upon arrival, the patient is alert and mentating well. He continues to be tachypneic with RR 24-34. CPAP was still set to 10, FIO2 100%, with SpO2 trending down to 88%. Review of systems relevant to events:: Respiratory: COVID-19 pneumonia, acute hypoxemic respiratory failure. Reason for ICU Addmission:: acute hypoxemic respiratory failure due to COVID-19 pneumonia - Medications: Medications reviewed and adjusted accordingly: Yes Physical Exam Vital Signs: Temp Pulse Resp BP Pulse Ox 98.5 F 62 51 H 123/66 95 05/14/20 07:50 05/14/20 07:50 05/14/20 08:10 05/14/20 07:50 05/14/20 08:10 Intake & Output 05/13/20 05/14/20 05/15/20 06:59 06:59 06:59 Intake Total 1350 790 Output Total 750 1525 Balance 600 -735 Weight 80.9 kg 80.5 kg Weight/Height Weight 80.5 kg Height 1.73 m General appearance: PRESENT: no acute distress, well-developed, well-nourished Head exam: PRESENT: atraumatic, normocephalic Eye exam: PRESENT: conjunctiva pink, EOMI, PERRLA. ABSENT: scleral icterus Mouth exam: PRESENT: dry mucosa, tongue midline, other - cyanotic lips Respiratory exam: PRESENT: crackles - bilaterally, tachypnea. ABSENT: rales, rhonchi, wheezes Cardiovascular exam: PRESENT: bradycardia, RRR. ABSENT: diastolic murmur, rubs, systolic murmur Pulses: PRESENT: normal radial pulses, normal dorsalis pedis pul GI/Abdominal exam: PRESENT: normal bowel sounds, soft. ABSENT: distended, guarding, mass, organolmegaly, rebound, tenderness Gentrourinary exam: PRESENT: indwelling catheter Extremities exam: PRESENT: full ROM. ABSENT: calf tenderness, clubbing, pedal edema Neurological exam: PRESENT: alert, awake, oriented to person, oriented to place, oriented to time, oriented to situation, CN II-XII grossly intact. ABSENT: motor sensory deficit Skin exam: PRESENT: dry, intact, warm. ABSENT: cyanosis, rash Laboratory/Radiographs Laboratory Results: 05/14/20 05:32 05/14/20 05:32 05/13/20 05/13/20 05/13/20 14:00 17:15 19:27 WBC RBC Hgb Hct MCV MCH MCHC RDW Plt Count Seg Neutrophils % Carbonic Acid 1.23 1.16 HCO3/H2CO3 Ratio 24:1 24:1 ABG pH 7.49 H 7.48 H ABG pCO2 40.8 38.4 ABG pO2 64.3 L 60.2 L ABG HCO3 30.4 H 28.2 H ABG O2 Saturation 94.0 92.8 L ABG Base Excess 6.5 4.6 FiO2 80% 100% Sodium Potassium Chloride Carbon Dioxide Anion Gap BUN Creatinine Est GFR ( Amer) Glucose Calcium Phosphorus 3.3 Magnesium Total Bilirubin AST Alkaline Phosphatase Total Protein Albumin 05/14/20 05/14/20 05/14/20 05:32 05:32 06:12 WBC 13.0 H RBC 4.30 L Hgb 13.3 L Hct 38.4 MCV 89 MCH 30.9 MCHC 34.6 RDW 14.0 Plt Count 296 Seg Neutrophils % Not Reportable Carbonic Acid 0.99 L HCO3/H2CO3 Ratio 23:1 ABG pH 7.46 H ABG pCO2 32.9 L ABG pO2 54.3 L ABG HCO3 22.8 ABG O2 Saturation 90.2 L ABG Base Excess -0.4 FiO2 100% Sodium 135.7 L Potassium 4.8 Chloride 100 Carbon Dioxide 30 Anion Gap 6 BUN 31 H Creatinine 1.04 Est GFR ( Amer) > 60 Glucose 181 H Calcium 8.5 Phosphorus Magnesium 2.8 H Total Bilirubin 0.7 AST 42 Alkaline Phosphatase 68 Total Protein 5.9 L Albumin 3.2 L 05/14/20 10:17 WBC RBC Hgb Hct MCV MCH MCHC RDW Plt Count Seg Neutrophils % Carbonic Acid Cancelled HCO3/H2CO3 Ratio Cancelled ABG pH Cancelled ABG pCO2 Cancelled ABG pO2 Cancelled ABG HCO3 Cancelled ABG O2 Saturation Cancelled ABG Base Excess Cancelled FiO2 Cancelled Sodium Potassium Chloride Carbon Dioxide Anion Gap BUN Creatinine Est GFR ( Amer) Glucose Calcium Phosphorus Magnesium Total Bilirubin AST Alkaline Phosphatase Total Protein Albumin 05/10/20 05/10/20 05/11/20 17:46 17:46 02:34 Creatine Kinase 620 H CK-MB (CK-2) 4.33 Troponin I < 0.012 Impressions: Venous Doppler Study 05/13/20 00:00 IMPRESSION: 1. No sonographic evidence for lower extremity deep venous thrombosis in either leg. Chest X-Ray 05/14/20 00:00 IMPRESSION: Upper pneumomediastinum/supraclavicular air Increased interstitial markings in the mid and lower lungs worrisome for either fluid overload or interstitial pneumonia All labs, radiographs, diagnostic studies and EKGs were personally reviewed: Yes In addition, reports of radiographic and diagnostic studies were read: Yes Assessment and Plan - Diagnosis (1) Acute hypoxemic respiratory failure due to COVID-19 Is this a current diagnosis for this admission?: Yes Plan: * Decrease Decadron to 3 mg IV q 12 hr. * Check IL-6. * Check ABG to determine need for BiPAP (or intubation). * Increase CPAP to 12. SpO2 improved to 92%. * Frequent position changes (q 2hr). * Check troponin. * Start hydroxychloroquine/azithromycin. * I did have a discussion with the patient about advanced directives and goals of care. It is clear that the patient should remain full code at this time. However, I have explained to the patient that premature endotracheal intubation with mechanical ventilatory support could prove detrimental in the long-term by unnecessarily prolonging the duration of mechanical ventilatory support (if he proves to need such support). (2) Normocytic anemia Is this a current diagnosis for this admission?: Yes (3) Chronic obstructive pulmonary disease Qualifiers: COPD type: unspecified COPD Qualified Code(s): J44.9 - Chronic obstructive pulmonary disease, unspecified Is this a current diagnosis for this admission?: Yes (4) Depression Qualifiers: Depression Type: unspecified Qualified Code(s): F32.9 - Major depressive disorder, single episode, unspecified Is this a current diagnosis for this admission?: Yes (5) Pneumomediastinum Is this a current diagnosis for this admission?: Yes Plan: without overt evidence of pneumothorax. will continue to monitor. Critical Time Critical Time (minutes): 60 Level of Care: ICU -: 1. The care of a critical patient is a dynamic process. This note is a patient services representative synopsis but static in nature. The timeframe for treatments given in order is not necessarily the actual time these treatments may have been done. 2. This patient requires critical care secondary to ongoing requirements for therapy not offered or safe outside the critical care environment. Transfer to a lower level of care will result in altered life or limb morbidity and mortality. 3. Multidisciplinary rounds completed. 4. ABCDE bundle addressed.
--- NOTE | 2020-05-14 16:51 | RADIOLOGY REPORT (SQ) ---
EXAM DESCRIPTION: CHEST SINGLE VIEW IMAGES COMPLETED DATE/TIME: 05/14/2020 3:33 pm REASON FOR STUDY: CENTRAL LINE PLACEMENT COMPARISON: 05/14/2020 EXAM PARAMETERS: NUMBER OF VIEWS: One view. TECHNIQUE: Single frontal radiographic view of the chest acquired. RADIATION DOSE: NA LIMITATIONS: None. FINDINGS: LUNGS AND PLEURA: Interval development of a small right sided pneumothorax. Otherwise sta ble bibasilar mixed interstitial and airspace opacities. MEDIASTINUM AND HILAR STRUCTURES: Stable. HEART AND VASCULAR STRUCTURES: Stable. BONES: No acute findings. HARDWARE: Interval placement of a right cervical vascular access catheter, the tip full which project s in the region of the superior vena cava. OTHER: No other significant finding. IMPRESSION: Interval development of a small right sided pneumothorax without evidence of tension. I nterval placement of a right cervical vascular access catheter. Stable, persistent bibasilar mixed i nterstitial and airspace opacities. COMMENT: Pertinent findings on the imaging study reported as a CRITICAL RESULT to Nurse Sophia Batista rs at16:45 on 05/14/2020. Category of Critical Result: Pneumothorax TECHNICAL DOCUMENTATION: JOB ID: [id number] 2010 [employer]- All Rights Reserved Reading location - IP/workstation name: [email or web address]
[2020-05-14] MEDS: LORAZEPAM INJ 2 MG/1 ML VIAL IV PRN (17:37)
[2020-05-14] MEDS: FAMOTIDINE INJ/PF 20 MG/2 ML SDV IV SCH ×2 (17:37→22:21)
[2020-05-14] MEDS: VANCOMYCIN HCL 1,250 MG in DEXTROSE 5%-WATER 250 ML IV SCH (17:38)
--- NOTE | 2020-05-14 19:30 | RADIOLOGY REPORT (SQ) ---
EXAM DESCRIPTION: CHEST SINGLE VIEW IMAGES COMPLETED DATE/TIME: 05/14/2020 7:20 pm REASON FOR STUDY: r/o worsening right pneumothorax COMPARISON: 05/14/2020 EXAM PARAMETERS: NUMBER OF VIEWS: One view. TECHNIQUE: Single frontal radiographic view of the chest acquired. RADIATION DOSE: NA LIMITATIONS: None. FINDINGS: LUNGS AND PLEURA: Increased patchy opacification in both lower lung suh. Small right p neumothorax. MEDIASTINUM AND HILAR STRUCTURES: No masses. Contour normal. HEART AND VASCULAR STRUCTURES: Heart normal in size. Normal vasculature. BONES: No acute findings. HARDWARE: Right internal jugular catheter has its tip in the superior vena cava. OTHER: No other significant finding. IMPRESSION: Persistent small right pneumothorax. Increased bilateral lower lobe infiltrates. TECHNICAL DOCUMENTATION: JOB ID: [id number] 2010 [employer]- All Rights Reserved Reading location - IP/workstation name: [email or web address]
[2020-05-14] MEDS ORDERED: GABAPENTIN 300 MG CAPSULE PO ONE (21:21)
[2020-05-14] MEDS ORDERED: QUETIAPINE FUMARATE 25 MG TABLET PO ONE (21:21)
[2020-05-14] MEDS ORDERED: QUETIAPINE FUMARATE 25 MG TABLET ONE (21:45)
--- NOTE | 2020-05-15 00:51 | RADIOLOGY REPORT (SQ) ---
EXAM DESCRIPTION: [facility]: XR CHEST 1 VIEW CLINICAL HISTORY: 79 years Male; at midnight-f/u pneumothorax r/o worsening; FINDINGS: AP portable upright chest at 0004. Since 05/14/2020 at 1915, right pneumothorax is smaller, less than 10%. No mediastinal shift. Bilateral interstitial edema is similar. Right IJ line drains in place, tip in the SVC. IMPRESSION: Right apical pneumothorax is smaller.
[2020-05-15] MEDS: ALBUTEROL SULFATE HFA (90 MCG/PUFF) 200 PUFF/8.5 GM MDI IH SCH ×2 (05:03→13:50)
[2020-05-15 05:12] LABS: HEMATOCRIT 39.3 % (37.9-51.0); HEMOGLOBIN 13.3 g/dL (13.5-17.0); MEAN CORPUSCULAR HEMOGLOBIN 30.7 pg (27.0-33.4); MEAN CORPUSCULAR HGB CONC 33.8 g/dL (32.0-36.0); MEAN CORPUSCULAR VOLUME 91 fl (80-97); PLATELET COUNT 327 10^3/uL (150-450); RED BLOOD COUNT 4.33 10^6/uL (4.35-5.55); RED CELL DISTRIBUTION WIDTH 13.8 % (11.5-14.0); WHITE BLOOD COUNT 11.7 10^3/uL (4.0-10.5)
[2020-05-15 05:13] LABS: PROTHROMBIN TIME 15.2 SEC (11.4-15.4)
[2020-05-15 05:14] LABS: FIBRINOGEN 698 mg/dL (209-497); PARTIAL THROMBOPLASTIN TIME 29.7 SEC (23.5-35.8)
[2020-05-15 05:21] LABS: ARTERIAL BLOOD BASE EXCESS 3.8 mmol/L; ARTERIAL BLOOD HCO3 27.9 mmol/L (20-24); ARTERIAL BLOOD O2 SATURATION 83.6 % (94-98); ARTERIAL BLOOD PH 7.46 (7.35-7.45); ARTERIAL BLOOD PO2 45.1 mmHg (80-100); ARTERIAL BLOOD TOTAL CO2 29.1 mmol/L (23-27)
[2020-05-15 05:22] LABS: ARTERIAL BLOOD FIO2 100%
[2020-05-15 05:26] LABS: ARTERIAL BLOOD BASE EXCESS 4.9 mmol/L; ARTERIAL BLOOD H2CO3 1.32 mmol/L (1.05-1.35); ARTERIAL BLOOD HCO3 29.6 mmol/L (20-24); ARTERIAL BLOOD O2 SATURATION 62.4 % (94-98); ARTERIAL BLOOD PH 7.45 (7.35-7.45)
[2020-05-15 05:29] LABS: ABSOLUTE LYMPHOCYTES# (MANUAL) 0.1 10^3/uL (0.5-4.7); ABSOLUTE MONOCYTES # (MANUAL) 0.8 10^3/uL (0.1-1.4); BAND NEUTROPHILS % (MANUAL) 4 % (3-5); BASOPHILS % (MANUAL) 0 % (0-2); EOSINOPHILS % (MANUAL) 0 % (0-6); LYMPHOCYTES % (MANUAL) 1 % (13-45); MONOCYTES % (MANUAL) 7 % (3-13); SEGMENTED NEUTROPHILS % (MAN) 88 % (42-78); TOTAL CELLS COUNTED 100
[2020-05-15 05:30] LABS: PLATELET COMMENT ADEQUATE; RBC MORPHOLOGY COMMENT NORMO-CYTIC/CHROMIC
[2020-05-15 05:31] LABS: ALBUMIN 2.9 g/dL (3.5-5.0); ALKALINE PHOSPHATASE 69 U/L (38-126); ANION GAP 6 (5-19); ASPARTATE AMINO TRANSFERASE 33 U/L (17-59); BILIRUBIN,TOTAL 0.7 mg/dL (0.2-1.3); BLOOD UREA NITROGEN 35 mg/dL (7-20); C-REACTIVE PROTEIN 89.1 mg/L (<10.0); CALCIUM 8.3 mg/dL (8.4-10.2); CARBON DIOXIDE 30 mmol/L (22-30); CHLORIDE 99 mmol/L (98-107); GLUCOSE 196 mg/dL (75-110); PHOSPHORUS 4.2 mg/dL (2.5-4.5); POTASSIUM 4.8 mmol/L (3.6-5.0); TOTAL PROTEIN 5.7 g/dL (6.3-8.2)
[2020-05-15 05:33] LABS: ARTERIAL BLOOD FIO2 100%
[2020-05-15 05:35] LABS: ARTERIAL BLOOD PO2 31.3 mmHg (80-100)
[2020-05-15] MEDS: VANCOMYCIN HCL 1,250 MG in DEXTROSE 5%-WATER 250 ML IV SCH (06:02)
[2020-05-15] MEDS: HEPARIN SOD (PORCINE) 5,000 UNIT/ML 1 ML VIAL SUBCUT SCH (06:03)
--- NOTE | 2020-05-15 06:59 | Progress Note ---
Provider Note Provider Note: Date/time of initial encounter in the overnight hours: 18:56 PM Mr Riddle is a 79 year-old male with COPD, COVID-19, and ARDS who was transferred from the [facility] to ICU earlier today with acute hypoxic respiratory failure and pneumomediastinum to observe the need for intubation. Throughout the night, Mr Riddle experienced a labile SPO2 which originally started in a range of 88-93%, then 83-88%, and more recently as of 4am 79-86%. Though the medical community is learning more about COVID-19 every day, one thing that we do know is that a lot of patient's with this disease seem to be "happy hypoxics" meaning they have a lower than normal SPO2 or PaO2, but show no end-organ dysfunction from an oxygenation standpoint. We have also learned from the early months of this disease that mechanical ventilation may contribute to overall mortality. Thus we are more prudent with assessing how a patient is doing from an end-organ standpoint before moving forward with endotracheal intubation. Though Mr Riddle may soon need intubation, the fewer days on a mechanical ventilator the better from a ventilator-associated pneumonia, diaphragmatic deconditioning, debility, and tracheomalacia as well as tracheal stenosis standpoint. He was noted at 04:15 am to have some hawa-oral cyanosis, though his mental status remains unchanged and he is oriented x4. LFT's, renal function, and cardiac biomarkers were all obtained to assess end-organ function, as well as an ABG to assess PaO2 and SVO2 to assess oxygen extraction. There is no evidence of renal, hepatic, or cardiac hypoperfusion on this lab work and SVO2 i2 62%. His CXR from around 7pm on 05/14/2020 demonstrated improvement in right pneumothorax in comparison to 3pm film. A repeat film around midnight demonstrated a stable right apical pneumothorax. A third CXR was obtained this morning at 6am given his moderate hypoxemia to ensure a thoracostomy tube was not necessary, again demonstrating a stable right-sided apical pneumothorax. Granted, an anterior-posterior CXR does not account for pneumothorax that is larger, involving more of the anterior or posterior thorax. However, he has displayed no signs of tension and hemodynamics have remained stable. Nor has he been tachycardic without being on a beta or calcium channel anabel. When his lab work was obtained, the RN mentioned it was viscous "like sludge" for which the patient may actually need and possibly benefit from anticoagulation with a heparin infusion for which I will discuss with the weather clerk. He has hyperfibrogenemia, normal PT/PTT/INR, elevated D-dimer and likely inflammation of the endothelial lining of the blood vessels contributing to both the blood viscosity as well as the hypoxemia, which could certainly be a result of microthrombi in the blood vessels or lungs. The downside of initiating this therapy is the potential need for a thoracostomy tube at some point today, for which protamine sulfate could be administered if necessary, resuming anticoagulation afterwards. Will have to base this decision on risk-benefit stratification. The other option would be to place a thoracostomy tube ahead of time though not presently necessary, then begin anticoagulation. Plan: -I will perform POCUS to assess for a large anterior pneumothorax that we cannot see on CXR, necessitating need to proceed with thoracostomy tube insertion. -I will discuss the above with Dr Craft regarding the tube and anticoagulation. Total critical care time overnight beginning on 05/14/2020 at the above time: 40 minutes time spent ordering/reviewing multiple CXR's, frequent reassessment of SPO2/ventilation/mentation/urine output, and ordering/reviewing lab work. Billing code: [id number]
[2020-05-15] MEDS ORDERED: DEXAMETHASONE SOD PHOSPHATE INJ 4 MG/1 ML VIAL IV ONE (07:45)
[2020-05-15] MEDS ORDERED: HEPARIN SOD (PORCINE) 1,000 UNIT/ML 10 ML VIAL IV ONE (07:51)
--- NOTE | 2020-05-15 08:08 | RADIOLOGY REPORT (SQ) ---
EXAM DESCRIPTION: CHEST SINGLE VIEW IMAGES COMPLETED DATE/TIME: 05/15/2020 6:12 am REASON FOR STUDY: 6 AM; r/o worsening pneumothorax w/ worse hypoxia COMPARISON: Chest films 05/15/2020, 05/14/2020, 05/10/2020 EXAM PARAMETERS: NUMBER OF VIEWS: One view. TECHNIQUE: Single frontal radiographic view of the chest acquired. RADIATION DOSE: NA LIMITATIONS: None. FINDINGS: LUNGS AND PLEURA: Small right apical pneumothorax, more prominent than on chest films 2019, 0004 hours. Trace left apical pneumothorax, new compared to prior study 05/15/2020, 0004 hours Findings called to Dov Hwang in the ICU Diffuse alveolar and interstitial infiltrates are stable. No pleural effusion. MEDIASTINUM AND HILAR STRUCTURES: No masses. Contour normal. HEART AND VASCULAR STRUCTURES: Heart normal in size. Normal vasculature. BONES: No acute findings. HARDWARE: Right jugular central line tip superior vena cava OTHER: No other significant finding. IMPRESSION: Diffuse alveolar and interstitial infiltrates stable. Small right apical pneumothorax, trace left apical pneumothorax. Findings called to Jason Hwang in [facility] ICU TECHNICAL DOCUMENTATION: JOB ID: [id number] [employer]- All Rights Reserved Reading location - IP/workstation name: [email or web address]
[2020-05-15 08:34] LABS: HEMATOCRIT 39.6 % (37.9-51.0); HEMOGLOBIN 13.5 g/dL (13.5-17.0); MEAN CORPUSCULAR HGB CONC 34.1 g/dL (32.0-36.0); MEAN CORPUSCULAR VOLUME 91 fl (80-97); PLATELET COUNT 313 10^3/uL (150-450); RED BLOOD COUNT 4.36 10^6/uL (4.35-5.55); RED CELL DISTRIBUTION WIDTH 13.9 % (11.5-14.0)
[2020-05-15] MEDS: HEPARIN SODIUM,PORCINE/D5W 25,000 UNIT/250 ML RTUINJ IV PRN (08:40)
[2020-05-15 08:43] LABS: INTERNATIONAL RATION (INR) 1.21; PROTHROMBIN TIME 15.4 SEC (11.4-15.4)
[2020-05-15 08:44] LABS: PARTIAL THROMBOPLASTIN TIME 29.1 SEC (23.5-35.8)
[2020-05-15 08:50] LABS: ABSOLUTE LYMPHOCYTES# (MANUAL) 0.5 10^3/uL (0.5-4.7); ABSOLUTE MONOCYTES # (MANUAL) 0.7 10^3/uL (0.1-1.4); BASOPHILS % (MANUAL) 0 % (0-2); EOSINOPHILS % (MANUAL) 0 % (0-6); LYMPHOCYTES % (MANUAL) 4 % (13-45); MONOCYTES % (MANUAL) 6 % (3-13); SEGMENTED NEUTROPHILS % (MAN) 90 % (42-78); TOTAL CELLS COUNTED 100
[2020-05-15 08:51] LABS: PLATELET CLUMPS PRESENT; PLATELET COMMENT ADEQUATE; RBC MORPHOLOGY COMMENT NORMO-CYTIC/CHROMIC
[2020-05-15] MEDS ORDERED: ALBUTEROL SULFATE 0.083% NEB 2.5 MG/3 ML AMPUL NEB PRN (09:22)
[2020-05-15] MEDS ORDERED: NORMAL SALINE 1000 ML 1,000 ML IV PRN (09:23)
[2020-05-15] MEDS ORDERED: DEXTROSE 50%-WATER 25 GM/50 ML DISP.SYRIN IV PRN ×2 (09:26)
[2020-05-15] MEDS ORDERED: DEXTROSE 10%-WATER 1,000 ML IV PRN (09:26)
[2020-05-15] MEDS ORDERED: GLUCAGON,HUMAN RECOMB 1 MG INJ IM PRN (09:26)
[2020-05-15] MEDS ORDERED: DEXTROSE 40% GEL 15 GM TUBE PO PRN ×2 (09:26)
[2020-05-15] MEDS: INSULIN REG, HUMAN 100 UNIT/ML 3 ML VIAL SUBCUT SCH ×2 (10:07→13:54)
[2020-05-15] MEDS: CITALOPRAM HYDROBROMIDE 20 MG TABLET PO SCH (10:08)
[2020-05-15] MEDS: CEFEPIME 1 GM/D5W RTU 1 GM/50 ML RTUPB IV SCH ×2 (10:08→21:13)
[2020-05-15] MEDS: LISINOPRIL 10 MG TABLET PO SCH (10:09)
[2020-05-15] MEDS: HYDROXYCHLOROQUINE SULFATE 200 MG TABLET PO SCH ×2 (10:09→21:16)
[2020-05-15] MEDS: FAMOTIDINE INJ/PF 20 MG/2 ML SDV IV SCH (10:09)
[2020-05-15] MEDS: LORAZEPAM INJ 2 MG/1 ML VIAL IV PRN ×2 (10:30→13:52)
[2020-05-15] MEDS: AZITHROMYCIN 250 MG in DEXTROSE 5%-WATER 250 ML IV SCH (10:32)
[2020-05-15] MEDS: DEXAMETHASONE SOD PHOSPHATE INJ 4 MG/1 ML VIAL IV SCH ×3 (13:51→23:35)
[2020-05-15] MEDS ORDERED: DEXMEDETOMIDINE IN 0.9 % NACL 0 MCG/0 ML RTUPB IV ONE (16:14)
[2020-05-15] MEDS ORDERED: DEXMEDETOMIDINE IN 0.9 % NACL 400 MCG/100 ML RTUPB IV ONE (16:16)
[2020-05-15] MEDS: DEXMEDETOMIDINE IN 0.9 % NACL 400 MCG/100 ML RTUPB IV PRN (16:30)
--- NOTE | 2020-05-15 16:49 | PDOC CRITICAL CARE PROG REPORT ---
General Date:: 05/15/20 ICU Day:: 2 Hospital Day:: 6 Resuscitation Status: Full Code Events in the past 12 to 24 Hours:: 05/13: This 79-year-old male is seen in consultation at the request of Dr. Shane Perez for recommendations on further evaluation and management of respiratory distress/hypoxic respiratory failure. The patient has been admitted to the COVID unit at [facility] after presenting on 05/10/2020 with complaints of shortness of breath. He repeated a one-week history of cough, chills and dyspnea. He had a known confirmed COVID exposure (son-in-law). The patient has also been found to be positive for SARS-2-CoV infection. Dr. Perez contacted me with concerns that the patient was becoming more tac hypneic. At the time of referral, the patient was on BiPAP 16/8, FiO2 80%. ABG had been drawn: pH 7.49, PCO2 41, PO2 64 on FiO2 80%. At the time of clinical interview, the patient is fully conversant. He is notably tachypneic, respiratory rate 38. Respiratory therapy is in the process of making adjustments to his ventilatory support settings. At the bedside, the patient was changed to CPAP 10, FiO2 100%. SPO2 was 94%. 05/14: The patient was transferred to ICU. However, upon arrival, the patient is alert and mentating well. He continues to be tachypneic with RR 24-34. CPAP was still set to 10, FIO2 100%, with SpO2 trending down to 88%. 05/15: Patient remains on CPAP. Mentating well. More hypoxemic. SPO2 82 to 86%. Chest x-ray shows increased interstitial markings and stable right apical pneumothorax. Review of systems relevant to events:: Respiratory: COVID-19 pneumonia, acute hypoxemic respiratory failure. Reason for ICU Addmission:: acute hypoxemic respiratory failure due to COVID-19 pneumonia - Medications: Medications reviewed and adjusted accordingly: Yes Physical Exam Vital Signs: Temp Pulse Resp BP Pulse Ox 98.2 F 59 L 25 H 99/77 L 78 L 05/15/20 04:00 05/14/20 19:47 05/15/20 06:18 05/15/20 06:18 05/15/20 06:18 Intake & Output 05/14/20 05/15/20 05/16/20 06:59 06:59 06:59 Intake Total 840 1550 Output Total 1525 1025 Balance -685 525 Weight 80.5 kg 77.8 kg Weight/Height Weight 77.8 kg Height 1.73 m General appearance: PRESENT: mild distress, well-developed, well-nourished Head exam: PRESENT: atraumatic, normocephalic Eye exam: PRESENT: conjunctiva pink, EOMI, PERRLA. ABSENT: scleral icterus Mouth exam: PRESENT: dry mucosa, tongue midline Neck exam: ABSENT: carotid bruit, JVD, lymphadenopathy, thyromegaly Respiratory exam: PRESENT: crackles. ABSENT: rales, rhonchi, wheezes Cardiovascular exam: PRESENT: bradycardia, RRR. ABSENT: diastolic murmur, rubs, systolic murmur Pulses: PRESENT: normal dorsalis pedis pul GI/Abdominal exam: PRESENT: normal bowel sounds, soft. ABSENT: distended, guarding, mass, organolmegaly, rebound, tenderness Extremities exam: PRESENT: full ROM. ABSENT: calf tenderness, clubbing, pedal edema Musculoskeletal exam: PRESENT: normal inspection. ABSENT: deformity Neurological exam: PRESENT: alert, awake, oriented to person, oriented to place, oriented to time, oriented to situation, CN II-XII grossly intact. ABSENT: motor sensory deficit Psychiatric exam: PRESENT: appropriate affect. ABSENT: agitated Skin exam: PRESENT: dry, intact, warm. ABSENT: cyanosis, rash Tubes/Lines: PRESENT: Central Line - Right IJ Laboratory/Radiographs Laboratory Results: 05/15/20 04:45 05/15/20 04:45 05/14/20 05/14/20 05/15/20 10:17 10:45 04:32 WBC RBC Hgb Hct MCV MCH MCHC RDW Plt Count Seg Neutrophils % Carbonic Acid Cancelled 1.30 1.32 HCO3/H2CO3 Ratio Cancelled 23:1 22:1 ABG pH Cancelled 7.47 H 7.45 ABG pCO2 Cancelled 43.1 44.0 ABG pO2 Cancelled 57.9 L 31.3 L* ABG HCO3 Cancelled 30.7 H 29.6 H ABG O2 Saturation Cancelled 91.6 L 62.4 L ABG Base Excess Cancelled 6.3 4.9 FiO2 Cancelled 100% 100% Sodium Potassium Chloride Carbon Dioxide Anion Gap BUN Creatinine Est GFR ( Amer) Glucose Calcium Phosphorus Magnesium Ferritin Total Bilirubin AST Alkaline Phosphatase C-Reactive Protein Total Protein Albumin 05/15/20 05/15/20 05/15/20 04:45 04:45 04:45 WBC 11.7 H RBC 4.33 L Hgb 13.3 L Hct 39.3 MCV 91 MCH 30.7 MCHC 33.8 RDW 13.8 Plt Count 327 Seg Neutrophils % Not Reportable Carbonic Acid 1.20 HCO3/H2CO3 Ratio 23:1 ABG pH 7.46 H ABG pCO2 40.0 ABG pO2 45.1 L ABG HCO3 27.9 H ABG O2 Saturation 83.6 L ABG Base Excess 3.8 FiO2 100% Sodium 134.9 L Potassium 4.8 Chloride 99 Carbon Dioxide 30 Anion Gap 6 BUN 35 H Creatinine 1.11 Est GFR ( Amer) > 60 Glucose 196 H Calcium 8.3 L Phosphorus 4.2 Magnesium 2.9 H Ferritin 1210.00 H Total Bilirubin 0.7 AST 33 Alkaline Phosphatase 69 C-Reactive Protein 89.1 H Total Protein 5.7 L Albumin 2.9 L 05/10/20 05/10/20 05/11/20 17:46 17:46 02:34 Creatine Kinase 620 H CK-MB (CK-2) 4.33 Troponin I < 0.012 05/14/20 05/15/20 05/15/20 12:18 04:45 04:45 Creatine Kinase CK-MB (CK-2) 0.79 Troponin I < 0.012 < 0.012 Impressions: Venous Doppler Study 05/13/20 00:00 IMPRESSION: 1. No sonographic evidence for lower extremity deep venous thrombosis in either leg. All labs, radiographs, diagnostic studies and EKGs were personally reviewed: Yes In addition, reports of radiographic and diagnostic studies were read: Yes Assessment and Plan - Diagnosis (1) Acute hypoxemic respiratory failure due to COVID-19 Is this a current diagnosis for this admission?: Yes Plan: * Increase Decadron to 4 mg IV every 6 hours. * Check CVP. * IL-6 PENDING. * Increase CPAP to 14. * Frequent position changes (q 2hr). * Continue hydroxychloroquine/azithromycin. * Stop vancomycin in the absence of compelling indication. * I did have a discussion with the patient about advanced directives and goals of care. It is clear that the patient should remain full code at this time. However, I have explained to the patient that premature endotracheal intubation with mechanical ventilatory support could prove detrimental in the long-term by unnecessarily prolonging the duration of mechanical ventilatory support (if he proves to need such support). (2) Bilateral pneumothoraces Is this a current diagnosis for this admission?: Yes Plan: Small right apical and tiny left apical, appears to be redistributed from pneumomediasinum. Follow closely. Chest tube placement is not needed at this time. (3) Normocytic anemia Is this a current diagnosis for this admission?: Yes (4) Chronic obstructive pulmonary disease Qualifiers: COPD type: unspecified COPD Qualified Code(s): J44.9 - Chronic obstructive pulmonary disease, unspecified Is this a current diagnosis for this admission?: Yes (5) Depression Qualifiers: Depression Type: unspecified Qualified Code(s): F32.9 - Major depressive disorder, single episode, unspecified Is this a current diagnosis for this admission?: Yes (6) Pneumomediastinum Is this a current diagnosis for this admission?: Yes Critical Time Critical Time (minutes): 90 Level of Care: ICU -: 1. The care of a critical patient is a dynamic process. This note is a branch sales and service representative synopsis but static in nature. The timeframe for treatments giv en in order is not necessarily the actual time these treatments may have been done. 2. This patient requires critical care secondary to ongoing requirements for therapy not offered or safe outside the critical care environment. Transfer to a lower level of care will result in altered life or limb morbidity and mortality. 3. Multidisciplinary rounds completed. 4. ABCDE bundle addressed.
[2020-05-15] MEDS: INSULIN REG, HUMAN 100 UNIT/ML 3 ML VIAL (PYX) SUBCUT SCH ×3 (17:12→23:37)
--- NOTE | 2020-05-15 18:10 | RADIOLOGY REPORT (SQ) ---
EXAM DESCRIPTION: CHEST SINGLE VIEW IMAGES COMPLETED DATE/TIME: 05/15/2020 5:15 pm REASON FOR STUDY: bilateral peumothoraces COMPARISON: Earlier exam at 0600 hours TECHNIQUE: Single frontal radiographic view of the chest acquired. NUMBER OF VIEWS: One view. LIMITATIONS: None. FINDINGS: LUNGS AND PLEURA: Likely similar bilateral pneumothoraces given differences in technique a nd positioning. Persistent bilateral airspace-interstitial opacities. No significant pleural effusi on. MEDIASTINUM AND HILAR STRUCTURES: Stable. HEART AND VASCULAR STRUCTURES: Stable. BONES: No acute findings. HARDWARE: Right IJ central venous catheter, stable. OTHER: No other significant finding. IMPRESSION: Likely similar bilateral pneumothoraces given differences in technique and positioning. Persistent bilateral airspace-interstitial opacities. No significant pleural effusion. TECHNICAL DOCUMENTATION: JOB ID: [id number] [place]-72 2010 [employer]- All Rights Reserved Reading location - IP/workstation name: [email or web address]
[2020-05-15] MEDS: AMINO ACIDS 5 %/DEXTROSE 20 % 1,000 ML IV PRN (18:15)
[2020-05-15] MEDS: ALBUTEROL SULFATE 0.083% NEB 2.5 MG/3 ML AMPUL NEB SCH (20:48)
--- NOTE | 2020-05-15 21:51 | EKG REPORT ---
SEVERITY:- NORMAL ECG - SINUS RHYTHM : Confirmed by: Lisa Fontana MD 15-May-2020 21:51:11
[2020-05-16] MEDS: ALBUTEROL SULFATE 0.083% NEB 2.5 MG/3 ML AMPUL NEB SCH ×6 (00:33→20:54)
[2020-05-16] MEDS: HEPARIN SODIUM,PORCINE/D5W 25,000 UNIT/250 ML RTUINJ IV PRN ×2 (02:07→18:32)
[2020-05-16] MEDS: INSULIN REG, HUMAN 100 UNIT/ML 3 ML VIAL (PYX) SUBCUT SCH ×4 (05:10→23:21)
[2020-05-16] MEDS: DEXAMETHASONE SOD PHOSPHATE INJ 4 MG/1 ML VIAL IV SCH ×3 (05:10→21:16)
[2020-05-16] MEDS: DEXMEDETOMIDINE IN 0.9 % NACL 400 MCG/100 ML RTUPB IV PRN ×2 (05:20→13:48)
[2020-05-16] MEDS: LORAZEPAM INJ 2 MG/1 ML VIAL IV PRN (06:10)
[2020-05-16 06:19] LABS: ALBUMIN 2.8 g/dL (3.5-5.0); ALKALINE PHOSPHATASE 87 U/L (38-126); ASPARTATE AMINO TRANSFERASE 39 U/L (17-59); BILIRUBIN,DIRECT 0.1 mg/dL (0.0-0.4); BILIRUBIN,TOTAL 0.6 mg/dL (0.2-1.3); BLOOD UREA NITROGEN 29 mg/dL (7-20); GLUCOSE 252 mg/dL (75-110); PHOSPHORUS 3.6 mg/dL (2.5-4.5); POTASSIUM 4.5 mmol/L (3.6-5.0); TOTAL PROTEIN 5.6 g/dL (6.3-8.2)
[2020-05-16 06:25] LABS: CARBON DIOXIDE 29 mmol/L (22-30); CHLORIDE 102 mmol/L (98-107)
[2020-05-16 06:27] LABS: PREALBUMIN 7.3 mg/dL (17.6-36.0)
[2020-05-16 06:28] LABS: ANION GAP 5 (5-19)
[2020-05-16] MEDS ORDERED: LORAZEPAM INJ 2 MG/1 ML VIAL IV ONE (06:40)
[2020-05-16] MEDS ORDERED: LORAZEPAM INJ 2 MG/1 ML VIAL ONE (06:40)
[2020-05-16] MEDS: HEPARIN SOD (PORCINE) 1,000 UNIT/ML 10 ML VIAL IV PRN (07:06)
[2020-05-16] MEDS ORDERED: FUROSEMIDE INJ/PF 20 MG/2 ML SDV ONE (07:16)
--- NOTE | 2020-05-16 07:19 | RADIOLOGY REPORT (SQ) ---
EXAM: XR Chest, 1 View EXAM DATE/TIME: 05/16/2020 6:38 AM CLINICAL HISTORY: The patient is 79 years old and is Male; sudden hypoxia; r/o worse pneumothorax TECHNIQUE: Frontal view of the chest. COMPARISON: Chest radiograph from 05/15/2020 at 5:13 PM FINDINGS: LUNGS: Mild ill-defined densities again visualized throughout the lungs, most prominent in the left lower lung. This may represent a combination of atelectasis and interstitial edema. Findings are not significantly changed. PLEURAL SPACE: No definite residual pneumothorax. There is a small amount of lucency along the medial aspects of the lungs which is favored to represent residual pneumomediastinum. This appears improved. No significant pleural effusion. HEART: Mild enlargement of the cardiac silhouette. MEDIASTINUM: Interval improvement in pneumomediastinum. BONES/JOINTS: The bones are unchanged. TUBES, LINES AND DEVICES: Right internal jugular central venous catheter terminates at the cavoatrial junction. IMPRESSION: 1. No definite residual pneumothorax. Small amount of lucency visualized along the medial aspects of the bilateral lungs is favored to represent pneumomediastinum, which appears slightly improved since the prior exam. 2. No significant interval change in ill-defined bilateral pulmonary opacities, which remain most prominent in the left lower lung. This may represent a combination of atelectasis and interstitial edema.
[2020-05-16] MEDS: FUROSEMIDE INJ/PF 20 MG/2 ML SDV IV ONE ×2 (07:20→10:15)
[2020-05-16 07:23] LABS: ARTERIAL BLOOD BASE EXCESS -1.1 mmol/L; ARTERIAL BLOOD FIO2 100%; ARTERIAL BLOOD H2CO3 1.48 mmol/L (1.05-1.35); ARTERIAL BLOOD HCO3 25.5 mmol/L (20-24); ARTERIAL BLOOD O2 SATURATION 88.1 % (94-98); ARTERIAL BLOOD PCO2 49.2 mmHg (35-45); ARTERIAL BLOOD PH 7.33 (7.35-7.45)
[2020-05-16 07:26] LABS: ARTERIAL BLOOD BASE EXCESS -4.7 mmol/L; ARTERIAL BLOOD H2CO3 1.32 mmol/L (1.05-1.35); ARTERIAL BLOOD HCO3 21.5 mmol/L (20-24); ARTERIAL BLOOD O2 SATURATION 68.8 % (94-98); ARTERIAL BLOOD PCO2 43.9 mmHg (35-45); ARTERIAL BLOOD PH 7.31 (7.35-7.45); ARTERIAL BLOOD TOTAL CO2 22.9 mmol/L (23-27)
[2020-05-16 07:27] LABS: ARTERIAL BLOOD FIO2 100%
[2020-05-16 07:29] LABS: ARTERIAL BLOOD PO2 39.2 mmHg (80-100)
[2020-05-16] MEDS: CEFEPIME 1 GM/D5W RTU 1 GM/50 ML RTUPB IV SCH (09:09)
[2020-05-16] MEDS: AZITHROMYCIN 250 MG in DEXTROSE 5%-WATER 250 ML IV SCH (09:54)
[2020-05-16 09:59] LABS: ARTERIAL BLOOD BASE EXCESS 0.3 mmol/L; ARTERIAL BLOOD H2CO3 1.19 mmol/L (1.05-1.35); ARTERIAL BLOOD HCO3 24.8 mmol/L (20-24); ARTERIAL BLOOD O2 SATURATION 80.3 % (94-98); ARTERIAL BLOOD PCO2 39.7 mmHg (35-45); ARTERIAL BLOOD PH 7.41 (7.35-7.45); ARTERIAL BLOOD PO2 43.7 mmHg (80-100)
[2020-05-16 10:00] LABS: ARTERIAL BLOOD FIO2 100%
[2020-05-16] MEDS ORDERED: FUROSEMIDE INJ/PF 20 MG/2 ML SDV IV SCH (10:00)
[2020-05-16] MEDS ORDERED: MORPHINE SULFATE 10 MG/ML INJ ONE (15:54)
[2020-05-16] MEDS: CITALOPRAM HYDROBROMIDE 20 MG TABLET PO SCH (16:30)
[2020-05-16] MEDS: HYDROXYCHLOROQUINE SULFATE 200 MG TABLET PO SCH ×2 (16:31→21:16)
[2020-05-16] MEDS: LISINOPRIL 10 MG TABLET PO SCH (16:31)
[2020-05-16] MEDS: AMINO ACIDS 5 %/DEXTROSE 20 % 1,000 ML IV PRN (16:34)
--- NOTE | 2020-05-16 17:21 | EKG REPORT ---
SEVERITY:- NORMAL ECG - SINUS RHYTHM : Confirmed by: Lisa Fontana MD 16-May-2020 17:21:03
[2020-05-16] MEDS: MORPHINE SULFATE 10 MG/ML INJ IV PRN (23:21)
[2020-05-17] MEDS: ALBUTEROL SULFATE 0.083% NEB 2.5 MG/3 ML AMPUL NEB SCH ×7 (00:57→23:47)
[2020-05-17 04:55] LABS: ARTERIAL BLOOD BASE EXCESS 1.3 mmol/L; ARTERIAL BLOOD H2CO3 1.13 mmol/L (1.05-1.35); ARTERIAL BLOOD HCO3 25.1 mmol/L (20-24); ARTERIAL BLOOD O2 SATURATION 91.6 % (94-98); ARTERIAL BLOOD PCO2 37.5 mmHg (35-45); ARTERIAL BLOOD PH 7.44 (7.35-7.45); ARTERIAL BLOOD PO2 58.8 mmHg (80-100); ARTERIAL BLOOD TOTAL CO2 26.3 mmol/L (23-27)
[2020-05-17 04:56] LABS: HEMATOCRIT 41.5 % (37.9-51.0); MEAN CORPUSCULAR HEMOGLOBIN 30.6 pg (27.0-33.4); MEAN CORPUSCULAR HGB CONC 33.8 g/dL (32.0-36.0); MEAN CORPUSCULAR VOLUME 91 fl (80-97); PLATELET COUNT 300 10^3/uL (150-450); RED BLOOD COUNT 4.58 10^6/uL (4.35-5.55); RED CELL DISTRIBUTION WIDTH 14.1 % (11.5-14.0)
[2020-05-17 05:01] LABS: INTERNATIONAL RATION (INR) 1.42; PROTHROMBIN TIME 17.5 SEC (11.4-15.4)
[2020-05-17 05:05] LABS: ARTERIAL BLOOD FIO2 100%
[2020-05-17 05:16] LABS: ABSOLUTE LYMPHOCYTES# (MANUAL) 0.6 10^3/uL (0.5-4.7); ABSOLUTE MONOCYTES # (MANUAL) 1.5 10^3/uL (0.1-1.4); ALBUMIN 2.7 g/dL (3.5-5.0); ALKALINE PHOSPHATASE 108 U/L (38-126); ANISOCYTOSIS 1+; ASPARTATE AMINO TRANSFERASE 36 U/L (17-59); BAND NEUTROPHILS % (MANUAL) 3 % (3-5); BASOPHILS % (MANUAL) 0 % (0-2); BILIRUBIN,DIRECT 0.2 mg/dL (0.0-0.4); BILIRUBIN,TOTAL 0.9 mg/dL (0.2-1.3); BLOOD UREA NITROGEN 27 mg/dL (7-20); CALCIUM 8.1 mg/dL (8.4-10.2); EOSINOPHILS % (MANUAL) 0 % (0-6); GLUCOSE 275 mg/dL (75-110); LYMPHOCYTES % (MANUAL) 3 % (13-45); MONOCYTES % (MANUAL) 8 % (3-13); PHOSPHORUS 3.1 mg/dL (2.5-4.5); PLATELET COMMENT ADEQUATE; POLYCHROMASIA 1+; POTASSIUM 4.6 mmol/L (3.6-5.0); SEGMENTED NEUTROPHILS % (MAN) 86 % (42-78); TOTAL CELLS COUNTED 100; TOTAL PROTEIN 5.6 g/dL (6.3-8.2); TRIGLYCERIDES 86 mg/dL (<150)
[2020-05-17 05:21] LABS: CARBON DIOXIDE 31 mmol/L (22-30); CHLORIDE 100 mmol/L (98-107)
[2020-05-17 05:23] LABS: PREALBUMIN 6.5 mg/dL (17.6-36.0)
--- NOTE | 2020-05-17 05:40 | RADIOLOGY REPORT (SQ) ---
CHEST 1 VIEW on 05/17/2020 at 5:05 AM CLINICAL INDICATION: COVID 19 pneumonia, pneumomediastinum, pneumothorax COMPARISON: 05/16/2020 FINDINGS: Right IJ catheter tip is at the cavoatrial junction. Multiple wires are noted projecting over the chest. There are continued left greater than right interstitial and airspace opacities likely related to the patient's COVID 19 pneumonia. No definite pneumothorax is noted. There has been improvement in pneumomediastinum which appears nearly resolved. Heart is upper limits normal for size. No bony abnormality is noted. IMPRESSION: No pneumothorax noted and essentially resolved pneumomediastinum with continued bilateral opacities likely related to COVID 19 pneumonia.
[2020-05-17] MEDS: INSULIN REG, HUMAN 100 UNIT/ML 3 ML VIAL (PYX) SUBCUT SCH ×5 (05:46→23:11)
[2020-05-17] MEDS: DEXAMETHASONE SOD PHOSPHATE INJ 4 MG/1 ML VIAL IV SCH ×3 (05:46→21:02)
[2020-05-17 05:53] LABS: ANION GAP 4 (5-19)
[2020-05-17] MEDS: DEXMEDETOMIDINE IN 0.9 % NACL 400 MCG/100 ML RTUPB IV PRN ×2 (07:21→23:09)
[2020-05-17] MEDS: MORPHINE SULFATE 10 MG/ML INJ IV PRN ×3 (08:27→21:02)
[2020-05-17] MEDS: AZITHROMYCIN 250 MG in DEXTROSE 5%-WATER 250 ML IV SCH ×3 (09:33→12:13)
[2020-05-17] MEDS: INSULIN GLARGINE,HUM.REC.ANLOG 1,000 UNIT/10 ML VIAL SUBCUT SCH ×2 (09:34→21:03)
[2020-05-17] MEDS: FAT EMULSIONS 250 ML IV SCH (09:35)
[2020-05-17] MEDS: LISINOPRIL 10 MG TABLET PO SCH (09:46)
[2020-05-17] MEDS: PHOSPHORUS #1 250 MG TABLET PO SCH ×3 (09:46→18:40)
[2020-05-17] MEDS: CITALOPRAM HYDROBROMIDE 20 MG TABLET PO SCH (09:47)
[2020-05-17] MEDS: HYDROXYCHLOROQUINE SULFATE 200 MG TABLET PO SCH ×2 (09:49→21:02)
[2020-05-17] MEDS: HEPARIN SODIUM,PORCINE/D5W 25,000 UNIT/250 ML RTUINJ IV PRN (11:04)
--- NOTE | 2020-05-17 12:37 | PDOC CRITICAL CARE PROG REPORT ---
General Date:: 05/17/20 ICU Day:: 4 Hospital Day:: 6 Resuscitation Status: Full Code Events in the past 12 to 24 Hours:: Respiratory status improved but still tenuous. Review of systems relevant to events:: Pulmonary, neurological. Reason for ICU Addmission:: acute hypoxemic respiratory failure due to COVID-19 pneumonia - Medications: Medications reviewed and adjusted accordingly: Yes Vasopressors:: None Sedation:: Precedex. Physical Exam Vital Signs: Temp Pulse Resp BP Pulse Ox 97.9 F 58 L 37 H 170/92 H 100 05/17/20 04:00 05/17/20 08:50 05/17/20 08:50 05/17/20 07:29 05/17/20 08:50 Intake & Output 05/16/20 05/17/20 05/18/20 06:59 06:59 06:59 Intake Total 1925 1029 265 Output Total 0 Balance 1925 1029 265 Weight 76.7 kg 74.8 kg Weight/Height Weight 74.8 kg Height 5 ft 8 in General appearance: PRESENT: hard of hearing, mild distress Head exam: PRESENT: atraumatic, normocephalic Eye exam: PRESENT: conjunctiva pink, EOMI, PERRLA. ABSENT: scleral icterus Ear exam: PRESENT: normal external ear exam Mouth exam: PRESENT: dry mucosa, moist, tongue midline Respiratory exam: PRESENT: crackles - Crackles are dry and sound like sandpaper. Cardiovascular exam: PRESENT: bradycardia Pulses: PRESENT: normal dorsalis pedis pul GI/Abdominal exam: PRESENT: normal bowel sounds, soft. ABSENT: distended, guarding, mass, organolmegaly, rebound, tenderness Rectal exam: PRESENT: deferred Extremities exam: PRESENT: full ROM. ABSENT: calf tenderness, clubbing, pedal edema Musculoskeletal exam: PRESENT: normal inspection Neurological exam: PRESENT: altered, CN II-XII grossly intact, other - Confused Psychiatric exam: PRESENT: agitated Skin exam: PRESENT: dry, intact, warm. ABSENT: cyanosis, rash Tubes/Lines: PRESENT: Central Line Laboratory/Radiographs Laboratory Results: 05/17/20 04:31 05/17/20 04:31 05/17/20 05/17/20 05/17/20 04:31 04:31 04:31 WBC 19.0 H RBC 4.58 Hgb 14.0 Hct 41.5 MCV 91 MCH 30.6 MCHC 33.8 RDW 14.1 H Plt Count 300 Seg Neutrophils % Not Reportable Carbonic Acid 1.13 HCO3/H2CO3 Ratio 22:1 ABG pH 7.44 ABG pCO2 37.5 ABG pO2 58.8 L ABG HCO3 25.1 H ABG O2 Saturation 91.6 L ABG Base Excess 1.3 FiO2 100% Sodium 134.5 L Potassium 4.6 Chloride 100 Carbon Dioxide 31 H Anion Gap 4 L BUN 27 H Creatinine 0.89 Est GFR ( Amer) > 60 Glucose 275 H Calcium 8.1 L Phosphorus 3.1 Magnesium 2.7 H Total Bilirubin 0.9 AST 36 Alkaline Phosphatase 108 Total Protein 5.6 L Albumin 2.7 L Prealbumin 6.5 L Triglycerides 86 05/10/20 05/10/20 05/11/20 17:46 17:46 02:34 Creatine Kinase 620 H CK-MB (CK-2) 4.33 Troponin I < 0.012 NT-Pro-B Natriuret Pep 05/14/20 05/15/20 05/15/20 12:18 04:45 04:45 Creatine Kinase CK-MB (CK-2) 0.79 Troponin I < 0.012 < 0.012 NT-Pro-B Natriuret Pep 05/17/20 04:31 Creatine Kinase CK-MB (CK-2) Troponin I NT-Pro-B Natriuret Pep 237 Impressions: Venous Doppler Study 05/13/20 00:00 IMPRESSION: 1. No sonographic evidence for lower extremity deep venous thrombosis in either leg. Chest X-Ray 05/17/20 05:00 IMPRESSION: No pneumothorax noted and essentially resolved pneumomediastinum with continued bilateral opacities likely related to COVID 19 pneumonia. All labs, radiographs, diagnostic studies and EKGs were personally reviewed: Yes In addition, reports of radiographic and diagnostic studies were read: Yes Assessment and Plan - Diagnosis (1) Acute hypoxemic respiratory failure due to COVID-19 Is this a current diagnosis for this admission?: Yes Plan: He is still somewhat hypoxic and has little reserve. He will desaturate when bipap is removed. He is also delirious and is best served in the ICU for these reasons. (2) Delirium Is this a current diagnosis for this admission?: Yes Plan: Between COVID, and ICU stay and age over 75 he is at high risk for delirium. (3) Bilateral pneumothoraces Is this a current diagnosis for this admission?: Yes Plan: Resolved (4) History of COPD Is this a current diagnosis for this admission?: Yes Plan: This is no doubt making his recovery from COVID prolonged but he is not actively wheezing. (5) Hypertension Qualifiers: Hypertension type: essential hypertension Qualified Code(s): I10 - Essential (primary) hypertension Is this a current diagnosis for this admission?: Yes Plan: Controlled. (6) Pneumomediastinum Is this a current diagnosis for this admission?: Yes Plan: Resolved. Plan Summary: Keep in the ICU and on TPN until he can come off bipap and eat, or until he can be safe enough not to pull out an NG. Critical Time Critical Time (minutes): 35 Level of Care: ICU Anticipated discharge: SNF Within: Other -: 1. The care of a critical patient is a dynamic process. This note is a herbicide service sales representative synopsis but static in nature. The timeframe for treatments given in order is not necessarily the actual time these treatments may have been done. 2. This patient requires critical care secondary to ongoing requirements for therapy not offered or safe outside the critical care environment. Transfer to a lower level of care will result in altered life or limb morbidity and mortality. 3. Multidisciplinary rounds completed. 4. ABCDE bundle addressed.
[2020-05-17] MEDS: AMINO ACIDS 5 %/DEXTROSE 20 % 1,000 ML IV PRN (15:30)
[2020-05-18] MEDS: MORPHINE SULFATE 10 MG/ML INJ IV PRN ×5 (01:02→19:46)
[2020-05-18] MEDS: HEPARIN SODIUM,PORCINE/D5W 25,000 UNIT/250 ML RTUINJ IV PRN ×2 (03:20→17:04)
[2020-05-18] MEDS: ALBUTEROL SULFATE 0.083% NEB 2.5 MG/3 ML AMPUL NEB SCH ×5 (04:20→19:53)
[2020-05-18] MEDS: DEXAMETHASONE SOD PHOSPHATE INJ 4 MG/1 ML VIAL IV SCH ×3 (05:00→21:57)
[2020-05-18] MEDS: INSULIN REG, HUMAN 100 UNIT/ML 3 ML VIAL (PYX) SUBCUT SCH ×4 (05:00→23:14)
[2020-05-18 05:26] LABS: HEMATOCRIT 40.5 % (37.9-51.0); HEMOGLOBIN 13.7 g/dL (13.5-17.0); MEAN CORPUSCULAR HEMOGLOBIN 30.6 pg (27.0-33.4); MEAN CORPUSCULAR HGB CONC 33.8 g/dL (32.0-36.0); MEAN CORPUSCULAR VOLUME 91 fl (80-97); PLATELET COUNT 253 10^3/uL (150-450); RED BLOOD COUNT 4.47 10^6/uL (4.35-5.55); RED CELL DISTRIBUTION WIDTH 14.3 % (11.5-14.0); WHITE BLOOD COUNT 20.8 10^3/uL (4.0-10.5)
[2020-05-18 05:47] LABS: BLOOD UREA NITROGEN 26 mg/dL (7-20); CALCIUM 8.1 mg/dL (8.4-10.2); GLUCOSE 295 mg/dL (75-110); PHOSPHORUS 3.1 mg/dL (2.5-4.5); POTASSIUM 4.9 mmol/L (3.6-5.0)
[2020-05-18 05:52] LABS: ABSOLUTE LYMPHOCYTES# (MANUAL) 0.6 10^3/uL (0.5-4.7); ABSOLUTE MONOCYTES # (MANUAL) 0.2 10^3/uL (0.1-1.4); BASOPHILS % (MANUAL) 0 % (0-2); CARBON DIOXIDE 31 mmol/L (22-30); CHLORIDE 99 mmol/L (98-107); EOSINOPHILS % (MANUAL) 0 % (0-6); LYMPHOCYTES % (MANUAL) 3 % (13-45); MONOCYTES % (MANUAL) 1 % (3-13); NUCLEATED RED BLOOD CELLS 1 /100 WBC (0); SEGMENTED NEUTROPHILS % (MAN) 96 % (42-78); TOTAL CELLS COUNTED 100
[2020-05-18 05:54] LABS: ANISOCYTOSIS SLIGHT; OVALOCYTES SLIGHT; PLATELET COMMENT ADEQUATE; POIKILOCYTOSIS SLIGHT; PREALBUMIN 5.7 mg/dL (17.6-36.0); TOXIC GRANULATION 1+; TOXIC VACUOLATION PRESENT
[2020-05-18 05:59] LABS: ANION GAP 3 (5-19)
--- NOTE | 2020-05-18 08:09 | PDOC CRITICAL CARE PROG REPORT ---
General Date:: 05/18/20 ICU Day:: 5 Hospital Day:: 8 Resuscitation Status: Full Code Events in the past 12 to 24 Hours:: Overall about the same, unchanged. Review of systems relevant to events:: Pulmonary, neurological. Reason for ICU Addmission:: acute hypoxemic respiratory failure due to COVID-19 pneumonia - Medications: Medications reviewed and adjusted accordingly: Yes Vasopressors:: None Sedation:: None Physical Exam Vital Signs: Temp Pulse Resp BP Pulse Ox 97.4 F 56 L 35 H 160/117 H 91 L 05/17/20 20:00 05/18/20 04:00 05/18/20 06:00 05/18/20 05:29 05/18/20 06:00 Intake & Output 05/17/20 05/18/20 05/19/20 06:59 06:59 06:59 Intake Total 1029 1252 Output Total 150 Balance 1029 1102 Weight 74.8 kg 76.4 kg Weight/Height Weight 76.4 kg Height 5 ft 8 in General appearance: PRESENT: no acute distress, hard of hearing, thin Head exam: PRESENT: atraumatic, normocephalic Eye exam: PRESENT: conjunctiva pink, EOMI, PERRLA. ABSENT: scleral icterus Ear exam: PRESENT: normal external ear exam Mouth exam: PRESENT: dry mucosa Respiratory exam: PRESENT: crackles - Dry and coarse crackles. Cardiovascular exam: PRESENT: bradycardia GI/Abdominal exam: PRESENT: ascites Rectal exam: PRESENT: deferred Gentrourinary exam: PRESENT: indwelling catheter Extremities exam: PRESENT: full ROM. ABSENT: calf tenderness, clubbing, pedal edema Musculoskeletal exam: PRESENT: full ROM, normal inspection Neurological exam: PRESENT: altered, CN II-XII grossly intact, other - He seems a bit more interactive today but it is hard to tell level of delirium. Psychiatric exam: PRESENT: agitated - At times Skin exam: PRESENT: dry, intact, warm. ABSENT: cyanosis, rash Tubes/Lines: PRESENT: Central Line Laboratory/Radiographs Laboratory Results: 05/18/20 05:07 05/18/20 05:07 05/18/20 05/18/20 05:07 05:07 WBC 20.8 H RBC 4.47 Hgb 13.7 Hct 40.5 MCV 91 MCH 30.6 MCHC 33.8 RDW 14.3 H Plt Count 253 Seg Neutrophils % Not Reportable Sodium 133.0 L Potassium 4.9 Chloride 99 Carbon Dioxide 31 H Anion Gap 3 L BUN 26 H Creatinine 0.87 Est GFR ( Amer) > 60 Glucose 295 H Calcium 8.1 L Phosphorus 3.1 Prealbumin 5.7 L 05/10/20 05/10/20 05/11/20 17:46 17:46 02:34 Creatine Kinase 620 H CK-MB (CK-2) 4.33 Troponin I < 0.012 NT-Pro-B Natriuret Pep 05/14/20 05/15/20 05/15/20 12:18 04:45 04:45 Creatine Kinase CK-MB (CK-2) 0.79 Troponin I < 0.012 < 0.012 NT-Pro-B Natriuret Pep 05/17/20 04:31 Creatine Kinase CK-MB (CK-2) Troponin I NT-Pro-B Natriuret Pep 237 Impressions: Venous Doppler Study 05/13/20 00:00 IMPRESSION: 1. No sonographic evidence for lower extremity deep venous thrombosis in either leg. Chest X-Ray 05/17/20 05:00 IMPRESSION: No pneumothorax noted and essentially resolved pneumomediastinum with continued bilateral opacities likely related to COVID 19 pneumonia. All labs, radiographs, diagnostic studies and EKGs were personally reviewed: Yes In addition, reports of radiographic and diagnostic studies were read: Yes Assessment and Plan - Diagnosis (1) Acute hypoxemic respiratory failure due to COVID-19 Is this a current diagnosis for this admission?: Yes Plan: This is essentially unchanged. He is on bipap and will desaturate quickly if off. He is no worse off than the weekend. Given his age we would like to avoid intubation as much as possible. (2) Delirium Is this a current diagnosis for this admission?: Yes Plan: Still present may be improved which would be a sign of the waxing and waning of delirium. He is ill, elderly, relatively immobile all factors of delirium risk. He does not seem to be in pain. (3) Bilateral pneumothoraces Is this a current diagnosis for this admission?: Yes Plan: Resolved (4) History of COPD Is this a current diagnosis for this admission?: Yes Plan: Inactive (5) Hypertension Qualifiers: Hypertension type: essential hypertension Qualified Code(s): I10 - Essential (primary) hypertension Is this a current diagnosis for this admission?: Yes Plan: Controlled (6) Pneumomediastinum Is this a current diagnosis for this admission?: Yes Plan: Resolved. Plan Summary: Given his tenous respiratory status and delirium he is best maintained in the ICU. Critical Time Critical Time (minutes): 35 Level of Care: ICU Anticipated discharge: SNF Within: Other -: 1. The care of a critical patient is a dynamic process. This note is a sales representative wire rope synopsis but static in nature. The timeframe for treatments given in order is not necessarily the actual time these treatments may have been done. 2. This patient requires critical care secondary to ongoing requirements for therapy not offered or safe outside the critical care environment. Transfer to a lower level of care will result in altered life or limb morbidity and mortality. 3. Multidisciplinary rounds completed. 4. ABCDE bundle addressed.
[2020-05-18] MEDS: LISINOPRIL 10 MG TABLET PO SCH (09:27)
[2020-05-18] MEDS: CITALOPRAM HYDROBROMIDE 20 MG TABLET PO SCH (09:27)
[2020-05-18] MEDS: PHOSPHORUS #1 250 MG TABLET PO SCH ×3 (09:28→17:03)
[2020-05-18] MEDS: AMINO ACIDS 5 %/DEXTROSE 20 % 1,000 ML IV PRN (09:28)
[2020-05-18] MEDS: INSULIN GLARGINE,HUM.REC.ANLOG 1,000 UNIT/10 ML VIAL SUBCUT SCH ×2 (09:28→21:57)
[2020-05-18] MEDS: HYDROXYCHLOROQUINE SULFATE 200 MG TABLET PO SCH ×2 (09:28→21:57)
[2020-05-18] MEDS: AZITHROMYCIN 250 MG in DEXTROSE 5%-WATER 250 ML IV SCH (11:33)
[2020-05-18] MEDS ORDERED: MORPHINE SULFATE 10 MG/ML INJ ONE (15:44)
[2020-05-19] MEDS: ALBUTEROL SULFATE 0.083% NEB 2.5 MG/3 ML AMPUL NEB SCH ×7 (00:11→23:49)
[2020-05-19] MEDS: MORPHINE SULFATE 10 MG/ML INJ IV PRN ×6 (00:47→23:10)
[2020-05-19] MEDS ORDERED: LORAZEPAM INJ 2 MG/1 ML VIAL ONE ×3 (01:32→22:23)
[2020-05-19] MEDS ORDERED: LORAZEPAM INJ 2 MG/1 ML VIAL IV ONE ×3 (01:33→16:30)
[2020-05-19] MEDS: DEXMEDETOMIDINE IN 0.9 % NACL 400 MCG/100 ML RTUPB IV PRN ×2 (01:47→15:39)
[2020-05-19 02:26] LABS: HEMATOCRIT 40.1 % (37.9-51.0); HEMOGLOBIN 13.6 g/dL (13.5-17.0); MEAN CORPUSCULAR HEMOGLOBIN 30.9 pg (27.0-33.4); MEAN CORPUSCULAR HGB CONC 33.9 g/dL (32.0-36.0); MEAN CORPUSCULAR VOLUME 91 fl (80-97); WHITE BLOOD COUNT 20.8 10^3/uL (4.0-10.5)
[2020-05-19 02:46] LABS: ABSOLUTE LYMPHOCYTES# (MANUAL) 0.4 10^3/uL (0.5-4.7); ABSOLUTE MONOCYTES # (MANUAL) 0.8 10^3/uL (0.1-1.4); BASOPHILS % (MANUAL) 0 % (0-2); EOSINOPHILS % (MANUAL) 0 % (0-6); LYMPHOCYTES % (MANUAL) 2 % (13-45); MONOCYTES % (MANUAL) 4 % (3-13); SEGMENTED NEUTROPHILS % (MAN) 92 % (42-78); TOTAL CELLS COUNTED 100
[2020-05-19 02:48] LABS: ANISOCYTOSIS SLIGHT
[2020-05-19 02:49] LABS: PLATELET CLUMPS PRESENT; PLATELET COMMENT ADEQUATE; TOXIC GRANULATION SLIGHT
[2020-05-19 02:50] LABS: MYELOCYTES % (MANUAL) 2 % (0); PLATELET COUNT 242 10^3/uL (150-450)
[2020-05-19 02:57] LABS: ANION GAP 6 (5-19); BLOOD UREA NITROGEN 29 mg/dL (7-20); CARBON DIOXIDE 29 mmol/L (22-30); CHLORIDE 98 mmol/L (98-107); GLUCOSE 319 mg/dL (75-110); POTASSIUM 4.9 mmol/L (3.6-5.0)
[2020-05-19] MEDS: DEXAMETHASONE SOD PHOSPHATE INJ 4 MG/1 ML VIAL IV SCH ×3 (05:35→21:24)
[2020-05-19] MEDS: INSULIN REG, HUMAN 100 UNIT/ML 3 ML VIAL (PYX) SUBCUT SCH ×4 (05:37→23:16)
[2020-05-19] MEDS: AMINO ACIDS 5 %/DEXTROSE 20 % 1,000 ML IV PRN (07:00)
[2020-05-19] MEDS: LISINOPRIL 10 MG TABLET PO SCH (10:13)
[2020-05-19] MEDS: INSULIN GLARGINE,HUM.REC.ANLOG 1,000 UNIT/10 ML VIAL SUBCUT SCH ×2 (10:13→21:24)
[2020-05-19] MEDS: HYDROXYCHLOROQUINE SULFATE 200 MG TABLET PO SCH ×2 (10:14→21:24)
[2020-05-19] MEDS: CITALOPRAM HYDROBROMIDE 20 MG TABLET PO SCH (10:14)
[2020-05-19] MEDS: HEPARIN SODIUM,PORCINE/D5W 25,000 UNIT/250 ML RTUINJ IV PRN (12:30)
--- NOTE | 2020-05-19 12:30 | PDOC CRITICAL CARE PROG REPORT ---
General Date:: 05/19/20 ICU Day:: 6 Hospital Day:: 10 Resuscitation Status: Full Code Events in the past 12 to 24 Hours:: RR lower, O2 saturations a bit higher. Review of systems relevant to events:: Pulmonary Reason for ICU Addmission:: acute hypoxemic respiratory failure due to COVID-19 pneumonia - Medications: Medications reviewed and adjusted accordingly: Yes Vasopressors:: None Sedation:: None Physical Exam Vital Signs: Temp Pulse Resp BP Pulse Ox 97.6 F 55 L 35 H 143/80 H 93 05/19/20 08:00 05/19/20 12:02 05/19/20 12:02 05/19/20 10:00 05/19/20 12:02 Intake & Output 05/18/20 05/19/20 05/20/20 06:59 06:59 06:59 Intake Total 1252 462 Output Total 150 Balance 1102 462 Weight 76.4 kg 76.7 kg 76.7 kg Weight/Height Weight 76.7 kg Height 5 ft 8 in General appearance: PRESENT: no acute distress, cooperative Head exam: PRESENT: atraumatic, normocephalic Eye exam: PRESENT: conjunctiva pink, EOMI, PERRLA. ABSENT: scleral icterus Ear exam: PRESENT: normal external ear exam Mouth exam: PRESENT: moist, tongue midline Respiratory exam: PRESENT: clear to auscultation shanna, crackles - Crackles sound not as rough today.. ABSENT: rales, rhonchi, wheezes Cardiovascular exam: PRESENT: bradycardia GI/Abdominal exam: PRESENT: normal bowel sounds, soft. ABSENT: distended, guarding, mass, organolmegaly, rebound, tenderness Rectal exam: PRESENT: deferred Gentrourinary exam: PRESENT: indwelling catheter Extremities exam: PRESENT: full ROM. ABSENT: calf tenderness, clubbing, pedal edema Musculoskeletal exam: PRESENT: normal inspection Neurological exam: PRESENT: alert, awake, oriented to person, CN II-XII grossly intact, other - Less confused Skin exam: PRESENT: dry, intact, normal color, warm. ABSENT: cyanosis, rash Laboratory/Radiographs Laboratory Results: 05/19/20 02:05 05/19/20 02:05 05/19/20 05/19/20 02:05 02:05 WBC 20.8 H RBC 4.40 Hgb 13.6 Hct 40.1 MCV 91 MCH 30.9 MCHC 33.9 RDW 14.0 Plt Count 242 Seg Neutrophils % Not Reportable Sodium 132.5 L Potassium 4.9 Chloride 98 Carbon Dioxide 29 Anion Gap 6 BUN 29 H Creatinine 0.77 Est GFR ( Amer) > 60 Glucose 319 H Calcium 8.0 L 05/10/20 05/10/20 05/11/20 17:46 17:46 02:34 Creatine Kinase 620 H CK-MB (CK-2) 4.33 Troponin I < 0.012 NT-Pro-B Natriuret Pep 05/14/20 05/15/20 05/15/20 12:18 04:45 04:45 Creatine Kinase CK-MB (CK-2) 0.79 Troponin I < 0.012 < 0.012 NT-Pro-B Natriuret Pep 05/17/20 04:31 Creatine Kinase CK-MB (CK-2) Troponin I NT-Pro-B Natriuret Pep 237 Impressions: Venous Doppler Study 05/13/20 00:00 IMPRESSION: 1. No sonographic evidence for lower extremity deep venous thrombosis in either leg. Chest X-Ray 05/17/20 05:00 IMPRESSION: No pneumothorax noted and essentially resolved pneumomediastinum with continued bilateral opacities likely related to COVID 19 pneumonia. EKG: SB All labs, radiographs, diagnostic studies and EKGs were personally reviewed: Yes In addition, reports of radiographic and diagnostic studies were read: Yes Assessment and Plan - Diagnosis (1) Acute hypoxemic respiratory failure due to COVID-19 Is this a current diagnosis for this admission?: Yes Plan: It is too early too make a judgement on prognosis. However his RR is 30s, Os saturations in mid 90s today. HR is improved as are breath sounds. (2) Delirium Is this a current diagnosis for this admission?: Yes Plan: He seems to be well oriented today. (3) Hypertension Qualifiers: Hypertension type: essential hypertension Qualified Code(s): I10 - Essential (primary) hypertension Is this a current diagnosis for this admission?: Yes Plan: Resolved Plan Summary: At this point we will continue with treatment unchanged as his status seems to be improved. Critical Time Critical Time (minutes): 35 Level of Care: ICU Anticipated discharge: SNF Within: Other -: 1. The care of a critical patient is a dynamic process. This note is a manufacturer's representative synopsis but static in nature. The timeframe for treatments given in order is not necessarily the actual time these treatments may have been done. 2. This patient requires critical care secondary to ongoing requirements for therapy not offered or safe outside the critical care environment. Transfer to a lower level of care will result in altered life or limb morbidity and mortality. 3. Multidisciplinary rounds completed. 4. ABCDE bundle addressed.
[2020-05-19 13:26] LABS: PATH REVIEW PATHOLOGIST REVIEWED
[2020-05-19 13:57] LABS: VENOUS BLOOD BASE EXCESS 0.8 mmol/L; VENOUS BLOOD HCO3 25.9 mmol/L (20-32); VENOUS BLOOD PCO2 43.4 mmHg (35-63); VENOUS BLOOD PH 7.39 (7.30-7.42)
[2020-05-19] MEDS: HEPARIN SOD (PORCINE) 1,000 UNIT/ML 10 ML VIAL IV PRN (13:58)
[2020-05-19] MEDS: LORAZEPAM INJ 2 MG/1 ML VIAL IV PRN (22:25)
[2020-05-20] MEDS: AMINO ACIDS 5 %/DEXTROSE 20 % 1,000 ML IV PRN ×2 (00:32→18:10)
[2020-05-20] MEDS: ALBUTEROL SULFATE 0.083% NEB 2.5 MG/3 ML AMPUL NEB SCH ×5 (04:28→20:45)
[2020-05-20] MEDS: DEXAMETHASONE SOD PHOSPHATE INJ 4 MG/1 ML VIAL IV SCH ×3 (05:49→21:25)
[2020-05-20] MEDS: INSULIN REG, HUMAN 100 UNIT/ML 3 ML VIAL (PYX) SUBCUT SCH ×3 (05:49→17:59)
[2020-05-20] MEDS: DEXMEDETOMIDINE IN 0.9 % NACL 400 MCG/100 ML RTUPB IV PRN (05:50)
[2020-05-20 06:27] LABS: HEMATOCRIT 40.8 % (37.9-51.0); HEMOGLOBIN 13.9 g/dL (13.5-17.0); MEAN CORPUSCULAR HEMOGLOBIN 30.8 pg (27.0-33.4); MEAN CORPUSCULAR HGB CONC 34.1 g/dL (32.0-36.0); MEAN CORPUSCULAR VOLUME 90 fl (80-97); PLATELET COUNT 256 10^3/uL (150-450); RED BLOOD COUNT 4.53 10^6/uL (4.35-5.55); RED CELL DISTRIBUTION WIDTH 14.5 % (11.5-14.0); WHITE BLOOD COUNT 20.1 10^3/uL (4.0-10.5)
[2020-05-20 06:38] LABS: BLOOD UREA NITROGEN 33 mg/dL (7-20); CALCIUM 8.3 mg/dL (8.4-10.2); GLUCOSE 322 mg/dL (75-110); PHOSPHORUS 3.5 mg/dL (2.5-4.5); POTASSIUM 4.9 mmol/L (3.6-5.0)
[2020-05-20 06:44] LABS: ANION GAP 5 (5-19); CARBON DIOXIDE 30 mmol/L (22-30); CHLORIDE 98 mmol/L (98-107)
[2020-05-20 06:46] LABS: PREALBUMIN 8.7 mg/dL (17.6-36.0)
[2020-05-20 06:59] LABS: ABSOLUTE LYMPHOCYTES# (MANUAL) 0.6 10^3/uL (0.5-4.7); ABSOLUTE MONOCYTES # (MANUAL) 0.4 10^3/uL (0.1-1.4); BASOPHILS % (MANUAL) 0 % (0-2); EOSINOPHILS % (MANUAL) 0 % (0-6); LYMPHOCYTES % (MANUAL) 3 % (13-45); MONOCYTES % (MANUAL) 2 % (3-13); SEGMENTED NEUTROPHILS % (MAN) 95 % (42-78); TOTAL CELLS COUNTED 100
[2020-05-20 07:00] LABS: ANISOCYTOSIS SLIGHT; OVALOCYTES SLIGHT; PLATELET COMMENT ADEQUATE; POIKILOCYTOSIS SLIGHT; SCHISTOCYTES SLIGHT
[2020-05-20] MEDS: MORPHINE SULFATE 10 MG/ML INJ IV PRN ×3 (08:05→21:25)
[2020-05-20] MEDS: FAT EMULSIONS 250 ML IV SCH (10:03)
[2020-05-20] MEDS: HEPARIN SODIUM,PORCINE/D5W 25,000 UNIT/250 ML RTUINJ IV PRN (10:04)
[2020-05-20] MEDS: LORAZEPAM INJ 2 MG/1 ML VIAL IV PRN (10:05)
[2020-05-20] MEDS: HYDROXYCHLOROQUINE SULFATE 200 MG TABLET PO SCH ×2 (10:09→21:26)
[2020-05-20] MEDS: CITALOPRAM HYDROBROMIDE 20 MG TABLET PO SCH (10:10)
[2020-05-20] MEDS: LISINOPRIL 10 MG TABLET PO SCH (10:10)
[2020-05-20] MEDS: INSULIN GLARGINE,HUM.REC.ANLOG 1,000 UNIT/10 ML VIAL SUBCUT SCH ×2 (10:11→21:26)
--- NOTE | 2020-05-20 10:37 | PDOC CRITICAL CARE PROG REPORT ---
General Date:: 05/20/20 ICU Day:: 6 Hospital Day:: 10 Resuscitation Status: Full Code Review of systems relevant to events:: Patient continues to be on BiPAP 100% FiO2. He is tolerating this well. Oxygen saturation varies from 89 to 92%. Nursing staff did not report any problems overnight. Reason for ICU Addmission:: acute hypoxemic respiratory failure due to COVID-19 pneumonia - Medications: Medications reviewed and adjusted accordingly: Yes Sedation:: Currently on Precedex. Physical Exam Vital Signs: Temp Pulse Resp BP Pulse Ox 97.0 F 55 L 34 H 156/84 H 92 05/19/20 16:00 05/20/20 07:52 05/20/20 08:00 05/20/20 07:31 05/20/20 08:00 Intake & Output 05/19/20 05/20/20 05/21/20 06:59 06:59 06:59 Intake Total 462 270 239 Balance 462 270 239 Weight 76.7 kg 73.9 kg Weight/Height Weight 73.9 kg Height 5 ft 8 in General appearance: PRESENT: no acute distress Head exam: PRESENT: atraumatic, normocephalic Eye exam: PRESENT: PERRLA. ABSENT: conjunctival injection Respiratory exam: PRESENT: tachypnea Cardiovascular exam: PRESENT: +S1, +S2 Pulses: PRESENT: normal radial pulses, normal dorsalis pedis pul GI/Abdominal exam: PRESENT: diminished bowel sounds, soft. ABSENT: tenderness Rectal exam: PRESENT: deferred Gentrourinary exam: PRESENT: indwelling catheter Musculoskeletal exam: PRESENT: normal inspection Neurological exam: PRESENT: alert, awake, oriented to person, oriented to place. ABSENT: oriented to time, oriented to situation Skin exam: PRESENT: intact, pallor Tubes/Lines: PRESENT: Central Line - Right internal jugular Laboratory/Radiographs Laboratory Results: 05/20/20 06:00 05/20/20 06:00 05/19/20 05/20/20 05/20/20 12:30 06:00 06:00 WBC 20.1 H RBC 4.53 Hgb 13.9 Hct 40.8 MCV 90 MCH 30.8 MCHC 34.1 RDW 14.5 H Plt Count 256 Seg Neutrophils % Not Reportable VBG pH 7.39 VBG pCO2 43.4 VBG HCO3 25.9 VBG Base Excess 0.8 Sodium 132.6 L Potassium 4.9 Chloride 98 Carbon Dioxide 30 Anion Gap 5 BUN 33 H Creatinine 0.83 Est GFR ( Amer) > 60 Glucose 322 H Calcium 8.3 L Phosphorus 3.5 Prealbumin 8.7 L 05/10/20 05/10/20 05/11/20 17:46 17:46 02:34 Creatine Kinase 620 H CK-MB (CK-2) 4.33 Troponin I < 0.012 NT-Pro-B Natriuret Pep 05/14/20 05/15/20 05/15/20 12:18 04:45 04:45 Creatine Kinase CK-MB (CK-2) 0.79 Troponin I < 0.012 < 0.012 NT-Pro-B Natriuret Pep 05/17/20 04:31 Creatine Kinase CK-MB (CK-2) Troponin I NT-Pro-B Natriuret Pep 237 Impressions: Venous Doppler Study 05/13/20 00:00 IMPRESSION: 1. No sonographic evidence for lower extremity deep venous thrombosis in either leg. Chest X-Ray 05/17/20 05:00 IMPRESSION: No pneumothorax noted and essentially resolved pneumomediastinum with continued bilateral opacities likely related to COVID 19 pneumonia. All labs, radiographs, diagnostic studies and EKGs were personally reviewed: Yes In addition, reports of radiographic and diagnostic studies were read: Yes Assessment and Plan - Diagnosis (1) Acute hypoxemic respiratory failure due to COVID-19 Is this a current diagnosis for this admission?: Yes Plan: Continue BiPAP for respiratory support. Continue Plaquenil. (2) Chronic obstructive pulmonary disease Qualifiers: COPD type: unspecified COPD Qualified Code(s): J44.9 - Chronic obstructive pulmonary disease, unspecified Is this a current diagnosis for this admission?: Yes Plan: Continue albuterol treatments per RT. (3) Delirium Is this a current diagnosis for this admission?: Yes Plan: We will wean down Precedex and switch to Ativan. (4) Hypertension Qualifiers: Hypertension type: essential hypertension Qualified Code(s): I10 - Essential (primary) hypertension Is this a current diagnosis for this admission?: Yes Plan: Stable. Continue lisinopril. (5) Pneumonia Qualifiers: Pneumonia type: due to unspecified organism Laterality: bilateral Lung location: upper lobe of lung Qualified Code(s): J18.9 - Pneumonia, unspecified organism Is this a current diagnosis for this admission?: Yes Plan: Continue BiPAP for respiratory support. Continue Plaquenil for COVID 19 pneumonia. (6) Pneumothorax, right Is this a current diagnosis for this admission?: Yes Plan: Pneumomediastinum resolved. Plan Summary: Plan is to wean down BiPAP as tolerated. Decrease Precedex and use Ativan as needed for delirium. Critical Time Critical Time (minutes): 30 Level of Care: ICU Anticipated discharge: Home -: 1. The care of a critical patient is a dynamic process. This note is a sales representative livestock synopsis but static in nature. The timeframe for treatments given in order is not necessarily the actual time these treatments may have been done. 2. This patient requires critical care secondary to ongoing requirements for therapy not offered or safe outside the critical care environment. Transfer to a lower level of care will result in altered life or limb morbidity and mortality. 3. Multidisciplinary rounds completed. 4. ABCDE bundle addressed.
--- NOTE | 2020-05-20 12:09 | Progress Note ---
Provider Note Provider Note: Patient seen shortly after Kyra Linn NP. His O2 saturations dipped to 70%. However he was not SOB or in distress. He had received .5mg of Ativan IV recently and was sleepy. He was woken up and O2 saturations came back up to 90% within about 2 minutes which is fast for him. However if he is agitated this occurs, when sedated this occurs. He may be intubated if this continues.
[2020-05-20 16:44] LABS: ARTERIAL BLOOD H2CO3 1.25 mmol/L (1.05-1.35); ARTERIAL BLOOD HCO3 25.7 mmol/L (20-24); ARTERIAL BLOOD O2 SATURATION 93.9 % (94-98); ARTERIAL BLOOD PCO2 41.4 mmHg (35-45); ARTERIAL BLOOD PH 7.41 (7.35-7.45); ARTERIAL BLOOD PO2 68.5 mmHg (80-100)
[2020-05-20 16:45] LABS: ARTERIAL BLOOD FIO2 100%
[2020-05-21] MEDS: ALBUTEROL SULFATE 0.083% NEB 2.5 MG/3 ML AMPUL NEB SCH ×6 (00:07→20:21)
[2020-05-21] MEDS: INSULIN REG, HUMAN 100 UNIT/ML 3 ML VIAL (PYX) SUBCUT SCH ×5 (00:49→23:09)
[2020-05-21] MEDS: MORPHINE SULFATE 10 MG/ML INJ IV PRN ×3 (03:32→21:19)
[2020-05-21] MEDS: HEPARIN SODIUM,PORCINE/D5W 25,000 UNIT/250 ML RTUINJ IV PRN ×2 (03:33→21:20)
[2020-05-21 03:42] LABS: HEMATOCRIT 45.3 % (37.9-51.0); HEMOGLOBIN 15.3 g/dL (13.5-17.0); MEAN CORPUSCULAR HEMOGLOBIN 30.7 pg (27.0-33.4); MEAN CORPUSCULAR HGB CONC 33.6 g/dL (32.0-36.0); MEAN CORPUSCULAR VOLUME 91 fl (80-97); RED BLOOD COUNT 4.98 10^6/uL (4.35-5.55); RED CELL DISTRIBUTION WIDTH 14.4 % (11.5-14.0); WHITE BLOOD COUNT 27.2 10^3/uL (4.0-10.5)
[2020-05-21 04:08] LABS: ANION GAP 5 (5-19); BLOOD UREA NITROGEN 32 mg/dL (7-20); CALCIUM 8.7 mg/dL (8.4-10.2); CARBON DIOXIDE 31 mmol/L (22-30); CHLORIDE 99 mmol/L (98-107); GLUCOSE 350 mg/dL (75-110); POTASSIUM 5.3 mmol/L (3.6-5.0)
[2020-05-21 04:30] LABS: ABSOLUTE LYMPHOCYTES# (MANUAL) 0.8 10^3/uL (0.5-4.7); ABSOLUTE MONOCYTES # (MANUAL) 1.4 10^3/uL (0.1-1.4); BAND NEUTROPHILS % (MANUAL) 1 % (3-5); BASOPHILS % (MANUAL) 0 % (0-2); EOSINOPHILS % (MANUAL) 0 % (0-6); LYMPHOCYTES % (MANUAL) 3 % (13-45); MONOCYTES % (MANUAL) 5 % (3-13); SEGMENTED NEUTROPHILS % (MAN) 89 % (42-78); TOTAL CELLS COUNTED 100
[2020-05-21 04:33] LABS: ANISOCYTOSIS SLIGHT; PLATELET CLUMPS PRESENT; PLATELET COMMENT ADEQUATE; PLATELET LARGE PRESENT; TEAR DROP CELLS SLIGHT; TOXIC GRANULATION SLIGHT
[2020-05-21 04:34] LABS: PLATELET COUNT 288 10^3/uL (150-450)
[2020-05-21 04:36] LABS: MYELOCYTES % (MANUAL) 2 % (0)
[2020-05-21] MEDS: DEXAMETHASONE SOD PHOSPHATE INJ 4 MG/1 ML VIAL IV SCH ×3 (05:12→21:19)
[2020-05-21] MEDS ORDERED: VANCOMYCIN HCL 0 MG in DEXTROSE 5%-WATER 250 ML IV NR (08:15)
--- NOTE | 2020-05-21 09:17 | PDOC CRITICAL CARE PROG REPORT ---
General Date:: 05/21/20 ICU Day:: 8 Hospital Day:: 12 Resuscitation Status: Full Code Events in the past 12 to 24 Hours:: Respiratory about the same or perhaps improved. WBC rising. Review of systems relevant to events:: Pulmonary, neurological. Reason for ICU Addmission:: acute hypoxemic respiratory failure due to COVID-19 pneumonia - Medications: Medications reviewed and adjusted accordingly: Yes Vasopressors:: None Sedation:: PRN ativan. Physical Exam Vital Signs: Temp Pulse Resp BP Pulse Ox 98.1 F 65 35 H 137/77 H 90 L 05/21/20 08:23 05/21/20 08:44 05/21/20 08:44 05/21/20 05:57 05/21/20 08:44 Intake & Output 05/20/20 05/21/20 05/22/20 06:59 06:59 06:59 Intake Total 270 508 Balance 270 508 Weight 73.9 kg 73 kg Weight/Height Weight 73 kg Height 5 ft 8 in General appearance: PRESENT: no acute distress, thin Head exam: PRESENT: atraumatic, normocephalic Eye exam: PRESENT: conjunctiva pink, EOMI, PERRLA. ABSENT: scleral icterus Ear exam: PRESENT: normal external ear exam Mouth exam: PRESENT: moist, tongue midline Respiratory exam: PRESENT: clear to auscultation shanna, crackles - Mild dry crackles.. ABSENT: rales, rhonchi, wheezes Cardiovascular exam: PRESENT: RRR. ABSENT: diastolic murmur, rubs, systolic murmur GI/Abdominal exam: PRESENT: normal bowel sounds, soft. ABSENT: distended, guarding, mass, organolmegaly, rebound, tenderness Rectal exam: PRESENT: deferred Gentrourinary exam: PRESENT: indwelling catheter Extremities exam: PRESENT: full ROM. ABSENT: calf tenderness, clubbing, pedal edema Musculoskeletal exam: PRESENT: normal inspection Neurological exam: PRESENT: alert, altered, awake Skin exam: PRESENT: dry, intact, warm. ABSENT: cyanosis, rash Tubes/Lines: PRESENT: Central Line Laboratory/Radiographs Laboratory Results: 05/21/20 03:30 05/21/20 03:30 05/20/20 05/21/20 05/21/20 16:30 03:30 03:30 WBC 27.2 H RBC 4.98 Hgb 15.3 Hct 45.3 MCV 91 MCH 30.7 MCHC 33.6 RDW 14.4 H Plt Count 288 Seg Neutrophils % Not Reportable Carbonic Acid 1.25 HCO3/H2CO3 Ratio 20:1 ABG pH 7.41 ABG pCO2 41.4 ABG pO2 68.5 L ABG HCO3 25.7 H ABG O2 Saturation 93.9 L ABG Base Excess 1.0 FiO2 100% Sodium 134.5 L Potassium 5.3 H Chloride 99 Carbon Dioxide 31 H Anion Gap 5 BUN 32 H Creatinine 0.90 Est GFR ( Amer) > 60 Glucose 350 H Calcium 8.7 05/10/20 05/10/20 05/11/20 17:46 17:46 02:34 Creatine Kinase 620 H CK-MB (CK-2) 4.33 Troponin I < 0.012 NT-Pro-B Natriuret Pep 05/14/20 05/15/20 05/15/20 12:18 04:45 04:45 Creatine Kinase CK-MB (CK-2) 0.79 Troponin I < 0.012 < 0.012 NT-Pro-B Natriuret Pep 05/17/20 04:31 Creatine Kinase CK-MB (CK-2) Troponin I NT-Pro-B Natriuret Pep 237 Impressions: Venous Doppler Study 05/13/20 00:00 IMPRESSION: 1. No sonographic evidence for lower extremity deep venous thrombosis in either leg. Chest X-Ray 05/17/20 05:00 IMPRESSION: No pneumothorax noted and essentially resolved pneumomediastinum with continued bilateral opacities likely related to COVID 19 pneumonia. All labs, radiographs, diagnostic studies and EKGs were personally reviewed: Yes In addition, reports of radiographic and diagnostic studies were read: Yes Assessment and Plan - Diagnosis (1) Acute hypoxemic respiratory failure due to COVID-19 Is this a current diagnosis for this admission?: Yes Plan: Roughly the same or slightly better. Continue bipap, starting to lower FiO2. (2) Delirium Is this a current diagnosis for this admission?: Yes (3) Hypertension Qualifiers: Hypertension type: essential hypertension Qualified Code(s): I10 - Essential (primary) hypertension Is this a current diagnosis for this admission?: Yes Plan: Controlled. (4) Leukocytosis Qualifiers: Leukocytosis type: unspecified Qualified Code(s): D72.829 - Elevated white blood cell count, unspecified Is this a current diagnosis for this admission?: Yes Plan: His WBC count is now 27. There is no fever. Consider line infection. Culture to be drawn from line. Vancomycin until cultures are back. If line is infected, D/C and give line oliday and place PICC next week. IF he has diarreah or abd pain, check Cdif. Plan Summary: Maintain for now in ICU especially in view of WBC count. Titrate FiO2 as allowable. Critical Time Critical Time (minutes): 35 Level of Care: ICU Anticipated discharge: SNF Within: Other -: 1. The care of a critical patient is a dynamic process. This note is a insurance representative synopsis but static in nature. The timeframe for treatments given in order is not necessarily the actual time these treatments may have been done. 2. This patient requires critical care secondary to ongoing requirements for therapy not offered or safe outside the critical care environment. Transfer to a lower level of care will result in altered life or limb morbidity and mortality. 3. Multidisciplinary rounds completed. 4. ABCDE bundle addressed.
[2020-05-21] MEDS: LORAZEPAM INJ 2 MG/1 ML VIAL IV PRN (09:29)
[2020-05-21] MEDS ORDERED: VANCOMYCIN HCL 1,250 MG in DEXTROSE 5%-WATER 250 ML IV ONE (10:00)
[2020-05-21] MEDS: INSULIN GLARGINE,HUM.REC.ANLOG 1,000 UNIT/10 ML VIAL SUBCUT SCH ×2 (10:59→21:26)
[2020-05-21] MEDS: LISINOPRIL 10 MG TABLET PO SCH (11:00)
[2020-05-21] MEDS: CITALOPRAM HYDROBROMIDE 20 MG TABLET PO SCH (11:00)
[2020-05-21] MEDS: AMINO ACIDS 5 %/DEXTROSE 20 % 1,000 ML IV PRN (11:02)
[2020-05-21] MEDS: VANCOMYCIN HCL 750 MG in DEXTROSE 5%-WATER 250 ML IV SCH (21:25)
[2020-05-21 23:42] LABS: APPEARANCE,URINE CLEAR; BILIRUBIN,URINE NEGATIVE (NEGATIVE); COLOR,URINE YELLOW; GLUCOSE, URINE >=500 mg/dL (NEGATIVE); KETONES,URINE NEGATIVE (NEGATIVE); LEUKOCYTE ESTERASE,URINE NEGATIVE (NEGATIVE); NITRITE,URINE NEGATIVE (NEGATIVE); PROTEIN,URINE NEGATIVE (NEGATIVE); URINE SPECIFIC GRAVITY 1.027; UROBILINOGEN,URINE NEGATIVE mg/dL (<2.0)
[2020-05-22] MEDS: INSULIN REG, HUMAN 100 UNIT/ML 3 ML VIAL (PYX) SUBCUT SCH ×7 (00:17→21:51)
[2020-05-22] MEDS: LORAZEPAM INJ 2 MG/1 ML VIAL IV PRN ×4 (00:17→20:25)
[2020-05-22] MEDS: ALBUTEROL SULFATE 0.083% NEB 2.5 MG/3 ML AMPUL NEB SCH ×7 (00:39→23:48)
[2020-05-22] MEDS: MORPHINE SULFATE 10 MG/ML INJ IV PRN ×3 (02:06→21:48)
[2020-05-22 03:41] LABS: HEMATOCRIT 44.6 % (37.9-51.0); HEMOGLOBIN 14.8 g/dL (13.5-17.0); MEAN CORPUSCULAR HEMOGLOBIN 30.6 pg (27.0-33.4); MEAN CORPUSCULAR HGB CONC 33.3 g/dL (32.0-36.0); MEAN CORPUSCULAR VOLUME 92 fl (80-97); PLATELET COUNT 273 10^3/uL (150-450); RED BLOOD COUNT 4.84 10^6/uL (4.35-5.55); RED CELL DISTRIBUTION WIDTH 14.8 % (11.5-14.0)
[2020-05-22 03:44] LABS: WHITE BLOOD COUNT 24.3 10^3/uL (4.0-10.5)
[2020-05-22 03:56] LABS: BLOOD UREA NITROGEN 36 mg/dL (7-20); CALCIUM 8.6 mg/dL (8.4-10.2); CHLORIDE 99 mmol/L (98-107); GLUCOSE 363 mg/dL (75-110)
[2020-05-22 04:02] LABS: ANION GAP 0 (5-19); CARBON DIOXIDE 35 mmol/L (22-30)
[2020-05-22 04:04] LABS: ABSOLUTE MONOCYTES # (MANUAL) 1.7 10^3/uL (0.1-1.4); BASOPHILS % (MANUAL) 0 % (0-2); EOSINOPHILS % (MANUAL) 0 % (0-6); LYMPHOCYTES % (MANUAL) 3 % (13-45); MONOCYTES % (MANUAL) 7 % (3-13); PLATELET CLUMPS PRESENT; PLATELET COMMENT ADEQUATE; PLATELET LARGE PRESENT; RBC MORPHOLOGY COMMENT NORMO-CYTIC/CHROMIC; SEGMENTED NEUTROPHILS % (MAN) 89 % (42-78); TOTAL CELLS COUNTED 100; TOXIC VACUOLATION PRESENT
[2020-05-22] MEDS: AMINO ACIDS 5 %/DEXTROSE 20 % 1,000 ML IV PRN ×2 (04:13→20:27)
[2020-05-22] MEDS: DEXAMETHASONE SOD PHOSPHATE INJ 4 MG/1 ML VIAL IV SCH ×4 (05:33→21:26)
--- NOTE | 2020-05-22 08:49 | PDOC CRITICAL CARE PROG REPORT ---
General Date:: 05/22/20 ICU Day:: 9 Hospital Day:: 13 Resuscitation Status: Full Code Events in the past 12 to 24 Hours:: He seems still to be slightly improved. Review of systems relevant to events:: Respiratory. Reason for ICU Addmission:: acute hypoxemic respiratory failure due to COVID-19 pneumonia - Medications: Medications reviewed and adjusted accordingly: Yes Vasopressors:: None Sedation:: None Physical Exam Vital Signs: Temp Pulse Resp BP Pulse Ox 97.1 F 62 30 H 154/82 H 90 L 05/21/20 21:37 05/22/20 08:32 05/22/20 08:32 05/22/20 05:58 05/22/20 08:32 Intake & Output 05/21/20 05/22/20 05/23/20 06:59 06:59 06:59 Intake Total 508 499 Output Total 180 Balance 508 319 Weight 73 kg 72.1 kg Weight/Height Weight 72.1 kg Height 5 ft 8 in General appearance: PRESENT: no acute distress, other - Stated he is feeling better for first time today. Head exam: PRESENT: atraumatic, normocephalic Eye exam: PRESENT: conjunctiva pink, EOMI, PERRLA. ABSENT: scleral icterus Ear exam: PRESENT: normal external ear exam Mouth exam: PRESENT: moist, tongue midline Respiratory exam: PRESENT: clear to auscultation shanna, crackles - Crackles are still dry and not as loud. RR rate down to about 30., other - Moving more air today.. ABSENT: rales, rhonchi, wheezes Cardiovascular exam: PRESENT: RRR. ABSENT: diastolic murmur, rubs, systolic murmur GI/Abdominal exam: PRESENT: normal bowel sounds, soft. ABSENT: distended, guarding, mass, organolmegaly, rebound, tenderness Rectal exam: PRESENT: deferred Extremities exam: PRESENT: full ROM. ABSENT: calf tenderness, clubbing, pedal edema Musculoskeletal exam: PRESENT: normal inspection Neurological exam: PRESENT: awake, oriented to person, oriented to place Psychiatric exam: PRESENT: appropriate affect, normal mood. ABSENT: homicidal ideation, suicidal ideation Skin exam: PRESENT: dry, intact, warm. ABSENT: cyanosis, rash Tubes/Lines: PRESENT: Central Line Laboratory/Radiographs Laboratory Results: 05/22/20 03:20 05/22/20 03:20 05/21/20 05/22/20 05/22/20 23:29 03:20 03:20 WBC 24.3 H RBC 4.84 Hgb 14.8 Hct 44.6 MCV 92 MCH 30.6 MCHC 33.3 RDW 14.8 H Plt Count 273 Seg Neutrophils % Not Reportable Sodium 133.6 L Potassium 5.0 Chloride 99 Carbon Dioxide 35 H Anion Gap 0 L BUN 36 H Creatinine 0.89 Est GFR ( Amer) > 60 Glucose 363 H Calcium 8.6 Urine Color YELLOW Urine Appearance CLEAR Urine pH 6.0 Ur Specific [place] 1.027 Urine Protein NEGATIVE Urine Glucose (UA) >=500 H Urine Ketones NEGATIVE Urine Blood SMALL H Urine Nitrite NEGATIVE Ur Leukocyte Esterase NEGATIVE Urine WBC (Auto) 1 Urine RBC (Auto) 13 05/10/20 05/10/20 05/11/20 17:46 17:46 02:34 Creatine Kinase 620 H CK-MB (CK-2) 4.33 Troponin I < 0.012 NT-Pro-B Natriuret Pep 05/14/20 05/15/20 05/15/20 12:18 04:45 04:45 Creatine Kinase CK-MB (CK-2) 0.79 Troponin I < 0.012 < 0.012 NT-Pro-B Natriuret Pep 05/17/20 04:31 Creatine Kinase CK-MB (CK-2) Troponin I NT-Pro-B Natriuret Pep 237 Impressions: Venous Doppler Study 05/13/20 00:00 IMPRESSION: 1. No sonographic evidence for lower extremity deep venous thrombosis in either leg. Chest X-Ray 05/17/20 05:00 IMPRESSION: No pneumothorax noted and essentially resolved pneumomediastinum with continued bilateral opacities likely related to COVID 19 pneumonia. All labs, radiographs, diagnostic studies and EKGs were personally reviewed: Yes In addition, reports of radiographic and diagnostic studies were read: Yes Assessment and Plan - Diagnosis (1) Acute hypoxemic respiratory failure due to COVID-19 Is this a current diagnosis for this admission?: Yes Plan: This does seem to be a bit better. His RR is 25-35. Moving more air. Continue current management. Given his tenous status I would not send him out of the ICU. (2) Delirium Is this a current diagnosis for this admission?: Yes Plan: Resolved. (3) Hypertension Qualifiers: Hypertension type: essential hypertension Qualified Code(s): I10 - Essential (primary) hypertension Is this a current diagnosis for this admission?: Yes Plan: Controlled. (4) Leukocytosis Qualifiers: Leukocytosis type: unspecified Qualified Code(s): D72.829 - Elevated white blood cell count, unspecified Is this a current diagnosis for this admission?: Yes Plan: Culture of line not back. WBC slightly down. No abd pain or diarreah, doubt Cdif. No brunson. Still concerned about central line. May need PICC. Not stable to have bipap mask of long enough for an NG to be placed for feeding. Critical Time Critical Time (minutes): 35 Level of Care: ICU Anticipated discharge: SNF Within: Other -: 1. The care of a critical patient is a dynamic process. This note is a mill representative synopsis but static in nature. The timeframe for treatments given in order is not necessarily the actual time these treatments may have been done. 2. This patient requires critical care secondary to ongoing requirements for therapy not offered or safe outside the critical care environment. Transfer to a lower level of care will result in altered life or limb morbidity and mortality. 3. Multidisciplinary rounds completed. 4. ABCDE bundle addressed.
[2020-05-22] MEDS: INSULIN GLARGINE,HUM.REC.ANLOG 1,000 UNIT/10 ML VIAL SUBCUT SCH ×2 (10:16→21:47)
[2020-05-22] MEDS: CITALOPRAM HYDROBROMIDE 20 MG TABLET PO SCH (10:16)
[2020-05-22] MEDS: LISINOPRIL 10 MG TABLET PO SCH (10:16)
[2020-05-22] MEDS: VANCOMYCIN HCL 750 MG in DEXTROSE 5%-WATER 250 ML IV SCH ×2 (10:17→21:26)
[2020-05-22] MEDS: HEPARIN SODIUM,PORCINE/D5W 25,000 UNIT/250 ML RTUINJ IV PRN (15:15)
[2020-05-23] MEDS: INSULIN REG, HUMAN 100 UNIT/ML 3 ML VIAL (PYX) SUBCUT SCH ×6 (02:33→23:13)
[2020-05-23] MEDS: ALBUTEROL SULFATE 0.083% NEB 2.5 MG/3 ML AMPUL NEB SCH ×5 (03:40→20:11)
[2020-05-23] MEDS: DEXAMETHASONE SOD PHOSPHATE INJ 4 MG/1 ML VIAL IV SCH ×3 (05:11→23:10)
[2020-05-23 06:32] LABS: HEMATOCRIT 44.8 % (37.9-51.0); HEMOGLOBIN 14.8 g/dL (13.5-17.0); MEAN CORPUSCULAR HEMOGLOBIN 30.6 pg (27.0-33.4); MEAN CORPUSCULAR HGB CONC 33.1 g/dL (32.0-36.0); MEAN CORPUSCULAR VOLUME 92 fl (80-97); RED BLOOD COUNT 4.85 10^6/uL (4.35-5.55); RED CELL DISTRIBUTION WIDTH 14.5 % (11.5-14.0); WHITE BLOOD COUNT 24.9 10^3/uL (4.0-10.5)
[2020-05-23] MEDS: LORAZEPAM INJ 2 MG/1 ML VIAL IV PRN ×2 (06:47→17:32)
[2020-05-23 07:55] LABS: ABSOLUTE LYMPHOCYTES# (MANUAL) 1.2 10^3/uL (0.5-4.7); ABSOLUTE MONOCYTES # (MANUAL) 1.5 10^3/uL (0.1-1.4); BASOPHILS % (MANUAL) 0 % (0-2); EOSINOPHILS % (MANUAL) 0 % (0-6); LYMPHOCYTES % (MANUAL) 4 % (13-45); METAMYELOCYTES % (MANUAL) 1 % (0-1); MONOCYTES % (MANUAL) 6 % (3-13); SEGMENTED NEUTROPHILS % (MAN) 88 % (42-78); TOTAL CELLS COUNTED 100
[2020-05-23 07:56] LABS: ANISOCYTOSIS SLIGHT; PLATELET CLUMPS PRESENT; PLATELET COMMENT ADEQUATE; PLATELET COUNT 187 10^3/uL (150-450)
--- NOTE | 2020-05-23 10:04 | PDOC CRITICAL CARE PROG REPORT ---
General Date:: 05/23/20 ICU Day:: 10 Hospital Day:: 14 Resuscitation Status: Full Code Events in the past 12 to 24 Hours:: Clinically improved but worn out. Review of systems relevant to events:: Pulmonary Reason for ICU Addmission:: acute hypoxemic respiratory failure due to COVID-19 pneumonia - Medications: Medications reviewed and adjusted accordingly: Yes Vasopressors:: None Sedation:: None Physical Exam Vital Signs: Temp Pulse Resp BP Pulse Ox 97.3 F 72 22 H 114/67 93 05/23/20 08:00 05/23/20 08:00 05/23/20 08:00 05/23/20 08:00 05/23/20 08:00 Intake & Output 05/22/20 05/23/20 05/24/20 06:59 06:59 06:59 Intake Total 499 750 Output Total 180 100 Balance 319 650 Weight 72.1 kg 69.3 kg Weight/Height Weight 69.3 kg Height 5 ft 8 in General appearance: PRESENT: no acute distress, other - Tired. Head exam: PRESENT: atraumatic, normocephalic Eye exam: PRESENT: conjunctiva pink, EOMI, PERRLA. ABSENT: scleral icterus Ear exam: PRESENT: normal external ear exam Mouth exam: PRESENT: moist, tongue midline Respiratory exam: PRESENT: clear to auscultation shanna, tachypnea. ABSENT: rales, rhonchi, wheezes Cardiovascular exam: PRESENT: RRR. ABSENT: diastolic murmur, rubs, systolic murmur GI/Abdominal exam: PRESENT: normal bowel sounds, soft. ABSENT: distended, guarding, mass, organolmegaly, rebound, tenderness Rectal exam: PRESENT: deferred Gentrourinary exam: PRESENT: indwelling catheter Musculoskeletal exam: PRESENT: normal inspection Neurological exam: PRESENT: awake, CN II-XII grossly intact, other - Very fatigued. Skin exam: PRESENT: dry, intact, warm. ABSENT: cyanosis, rash Tubes/Lines: PRESENT: Central Line Laboratory/Radiographs Laboratory Results: 05/23/20 05:45 05/22/20 03:20 05/22/20 05/23/20 03:20 05:45 WBC 24.9 H RBC 4.85 Hgb 14.8 Hct 44.8 MCV 92 MCH 30.6 MCHC 33.1 RDW 14.5 H Plt Count 187 Seg Neutrophils % Not Reportable Triglycerides 136 05/10/20 05/10/20 05/11/20 17:46 17:46 02:34 Creatine Kinase 620 H CK-MB (CK-2) 4.33 Troponin I < 0.012 NT-Pro-B Natriuret Pep 05/14/20 05/15/20 05/15/20 12:18 04:45 04:45 Creatine Kinase CK-MB (CK-2) 0.79 Troponin I < 0.012 < 0.012 NT-Pro-B Natriuret Pep 05/17/20 04:31 Creatine Kinase CK-MB (CK-2) Troponin I NT-Pro-B Natriuret Pep 237 Impressions: Venous Doppler Study 05/13/20 00:00 IMPRESSION: 1. No sonographic evidence for lower extremity deep venous thrombosis in either leg. Chest X-Ray 05/17/20 05:00 IMPRESSION: No pneumothorax noted and essentially resolved pneumomediastinum with continued bilateral opacities likely related to COVID 19 pneumonia. All labs, radiographs, diagnostic studies and EKGs were personally reviewed: Yes In addition, reports of radiographic and diagnostic studies were read: Yes Assessment and Plan - Diagnosis (1) Acute hypoxemic respiratory failure due to COVID-19 Is this a current diagnosis for this admission?: Yes Plan: Somewhat improved after one week on bipap but getting tired. He is still awake and clinically slightly improved. (2) Delirium Is this a current diagnosis for this admission?: Yes Plan: Resolved (3) Hypertension Qualifiers: Hypertension type: essential hypertension Qualified Code(s): I10 - Essential (primary) hypertension Is this a current diagnosis for this admission?: Yes Plan: Resolved (4) Leukocytosis Qualifiers: Leukocytosis type: unspecified Qualified Code(s): D72.829 - Elevated white blood cell count, unspecified Is this a current diagnosis for this admission?: Yes Plan: Lower but unchanged. No results yet from . Plan Summary: Still needs the ICU for his respiratory status. Critical Time Critical Time (minutes): 35 Level of Care: ICU Anticipated discharge: SNF Within: Other -: 1. The care of a critical patient is a dynamic process. This note is a event sales representative synopsis but static in nature. The timeframe for treatments given in order is not necessarily the actual time these treatments may have been done. 2. This patient requires critical care secondary to ongoing requirements for therapy not offered or safe outside the critical care environment. Transfer to a lower level of care will result in altered life or limb morbidity and m ortality. 3. Multidisciplinary rounds completed. 4. ABCDE bundle addressed.
[2020-05-23] MEDS: CITALOPRAM HYDROBROMIDE 20 MG TABLET PO SCH (10:08)
[2020-05-23] MEDS: LISINOPRIL 10 MG TABLET PO SCH (10:09)
[2020-05-23] MEDS: INSULIN GLARGINE,HUM.REC.ANLOG 1,000 UNIT/10 ML VIAL SUBCUT SCH ×2 (10:37→23:14)
[2020-05-23] MEDS: VANCOMYCIN HCL 750 MG in DEXTROSE 5%-WATER 250 ML IV SCH ×2 (10:38→17:37)
[2020-05-23] MEDS: HEPARIN SODIUM,PORCINE/D5W 25,000 UNIT/250 ML RTUINJ IV PRN (10:40)
[2020-05-23 10:47] LABS: VANCOMYCIN,TROUGH 7.2 ug/mL (5.0-20.0)
[2020-05-23] MEDS: AMINO ACIDS 5 %/DEXTROSE 20 % 1,000 ML IV PRN (13:26)
[2020-05-23] MEDS ORDERED: LIDOCAINE 2% URO-JET 5 ML KIT MM ONE (19:26)
[2020-05-23] MEDS: MORPHINE SULFATE 10 MG/ML INJ IV PRN (20:35)
[2020-05-23] MEDS ORDERED: MORPHINE SULFATE 10 MG/ML INJ IV PRN (23:52)
[2020-05-24] MEDS: ALBUTEROL SULFATE 0.083% NEB 2.5 MG/3 ML AMPUL NEB SCH ×7 (00:12→23:54)
[2020-05-24] MEDS: VANCOMYCIN HCL 750 MG in DEXTROSE 5%-WATER 250 ML IV SCH ×2 (02:21→10:02)
[2020-05-24] MEDS: INSULIN REG, HUMAN 100 UNIT/ML 3 ML VIAL (PYX) SUBCUT SCH (02:22)
[2020-05-24] MEDS: HEPARIN SODIUM,PORCINE/D5W 25,000 UNIT/250 ML RTUINJ IV PRN (02:22)
[2020-05-24] MEDS ORDERED: INSULIN REG, HUMAN 100 UNIT/ML 3 ML VIAL (PYX) SUBCUT SCH (02:31)
[2020-05-24] MEDS ORDERED: RINGERS SOLUTION,LACTATED 500 ML IV ONE ×2 (03:03→04:07)
[2020-05-24 03:32] LABS: APPEARANCE,URINE CLOUDY; BILIRUBIN,URINE NEGATIVE (NEGATIVE); GLUCOSE, URINE >=500 mg/dL (NEGATIVE); KETONES,URINE NEGATIVE (NEGATIVE); LEUKOCYTE ESTERASE,URINE NEGATIVE (NEGATIVE); NITRITE,URINE NEGATIVE (NEGATIVE); PROTEIN,URINE 30 mg/dL (NEGATIVE); URINE SPECIFIC GRAVITY 1.024
[2020-05-24 03:38] LABS: COLOR,URINE DARK YELLOW
[2020-05-24] MEDS ORDERED: RINGERS SOLUTION,LACTATED 500 ML IV PRN (03:58)
[2020-05-24 04:37] LABS: CALCIUM 7.9 mg/dL (8.4-10.2)
[2020-05-24 04:38] LABS: BLOOD UREA NITROGEN 49 mg/dL (7-20); CARBON DIOXIDE 29 mmol/L (22-30)
[2020-05-24 04:39] LABS: CHLORIDE 96 mmol/L (98-107); PHOSPHORUS 5.6 mg/dL (2.5-4.5); PREALBUMIN 13.2 mg/dL (17.6-36.0)
[2020-05-24 04:46] LABS: GLUCOSE 491 mg/dL (75-110); POTASSIUM 6.1 mmol/L (3.6-5.0)
[2020-05-24 04:47] LABS: ANION GAP 3 (5-19)
[2020-05-24] MEDS ORDERED: GLUCAGON,HUMAN RECOMB 1 MG INJ IM PRN ×2 (04:49→05:30)
[2020-05-24] MEDS ORDERED: DEXTROSE 50%-WATER 25 GM/50 ML DISP.SYRIN IV PRN ×2 (04:49)
[2020-05-24] MEDS ORDERED: DEXTROSE 40% GEL 15 GM TUBE PO PRN ×3 (04:49→05:30)
[2020-05-24] MEDS ORDERED: INSULIN REG, HUMAN 100 UNIT/ML 3 ML VIAL (PYX) ONE (05:00)
[2020-05-24] MEDS ORDERED: DEXTROSE 40% GEL 15 GM TUBE X 2 PO PRN (05:30)
[2020-05-24] MEDS ORDERED: DEXTROSE 50%-WATER SYRINGE 25 GM/50 ML DOSE IV PRN (05:30)
[2020-05-24] MEDS ORDERED: DEXTROSE 50%-WATER SYRINGE 12.5 GM/25 ML DOSE IV PRN (05:30)
[2020-05-24] MEDS ORDERED: INSULIN, REGULAR 100 UNIT/100 ML NORMAL SALINE IV PRN ×2 (05:30)
[2020-05-24] MEDS: NORMAL SALINE 100 ML with INSULIN REGULAR, HUMAN 100 UNIT IV PRN ×6 (05:49→17:52)
[2020-05-24 05:56] LABS: HEMOGLOBIN 13.9 g/dL (13.5-17.0); MEAN CORPUSCULAR HEMOGLOBIN 30.7 pg (27.0-33.4); MEAN CORPUSCULAR HGB CONC 33.1 g/dL (32.0-36.0); MEAN CORPUSCULAR VOLUME 93 fl (80-97); RED BLOOD COUNT 4.52 10^6/uL (4.35-5.55); RED CELL DISTRIBUTION WIDTH 14.8 % (11.5-14.0); WHITE BLOOD COUNT 19.7 10^3/uL (4.0-10.5)
[2020-05-24 06:50] LABS: PLATELET COUNT 85 10^3/uL (150-450)
[2020-05-24 06:54] LABS: ABSOLUTE LYMPHOCYTES# (MANUAL) 1.8 10^3/uL (0.5-4.7); ABSOLUTE MONOCYTES # (MANUAL) 0.8 10^3/uL (0.1-1.4); BASOPHILS % (MANUAL) 0 % (0-2); EOSINOPHILS % (MANUAL) 0 % (0-6); LYMPHOCYTES % (MANUAL) 7 % (13-45); MONOCYTES % (MANUAL) 4 % (3-13); SEGMENTED NEUTROPHILS % (MAN) 87 % (42-78); TOTAL CELLS COUNTED 100; TOXIC GRANULATION 1+
[2020-05-24 06:55] LABS: TOXIC VACUOLATION PRESENT
[2020-05-24 06:56] LABS: ANISOCYTOSIS SLIGHT; OVALOCYTES SLIGHT; PLATELET COMMENT DECREASED; POIKILOCYTOSIS SLIGHT; TEAR DROP CELLS SLIGHT
[2020-05-24] MEDS: DEXAMETHASONE SOD PHOSPHATE INJ 4 MG/1 ML VIAL IV SCH (06:57)
[2020-05-24 09:17] LABS: ARTERIAL BLOOD BASE EXCESS -1.6 mmol/L; ARTERIAL BLOOD H2CO3 1.46 mmol/L (1.05-1.35); ARTERIAL BLOOD HCO3 24.9 mmol/L (20-24); ARTERIAL BLOOD O2 SATURATION 92.1 % (94-98); ARTERIAL BLOOD PCO2 48.5 mmHg (35-45); ARTERIAL BLOOD PH 7.33 (7.35-7.45); ARTERIAL BLOOD PO2 67.6 mmHg (80-100); ARTERIAL BLOOD TOTAL CO2 26.4 mmol/L (23-27)
[2020-05-24 09:19] LABS: ARTERIAL BLOOD FIO2 70%
[2020-05-24] MEDS: FAT EMULSIONS 250 ML IV SCH (09:59)
[2020-05-24] MEDS: CITALOPRAM HYDROBROMIDE 20 MG TABLET PO SCH (09:59)
[2020-05-24] MEDS: LISINOPRIL 10 MG TABLET PO SCH (10:00)
[2020-05-24] MEDS: AMINO ACIDS 5 %/DEXTROSE 20 % 1,000 ML IV PRN (10:00)
--- NOTE | 2020-05-24 13:48 | RADIOLOGY REPORT (SQ) ---
EXAM DESCRIPTION: CHEST SINGLE VIEW IMAGES COMPLETED DATE/TIME: 05/24/2020 1:38 pm REASON FOR STUDY: acute respiratory failure, COVID-19 pneumonia COMPARISON: 05/17/2020 EXAM PARAMETERS: NUMBER OF VIEWS: One view. TECHNIQUE: Single frontal radiographic view of the chest acquired. RADIATION DOSE: NA LIMITATIONS: None. FINDINGS: LUNGS AND PLEURA: Aeration is slightly improved but there is persistent diffuse bilateral airspace disease. MEDIASTINUM AND HILAR STRUCTURES: The patient has developed pneumomediastinum since prior study. No pneumothorax. HEART AND VASCULAR STRUCTURES: Heart size is normal. BONES: No acute findings. HARDWARE: None in the chest. OTHER: No other significant finding. IMPRESSION: Extensive pneumomediastinum new from prior study. Central line remains in place. No pn eumothorax. TECHNICAL DOCUMENTATION: JOB ID: [id number] 2010 [employer]- All Rights Reserved Reading location - IP/workstation name: [email or web address]
[2020-05-24] MEDS: MORPHINE SULFATE 10 MG/ML INJ IV PRN ×2 (15:48→20:05)
[2020-05-24] MEDS ORDERED: DEXAMETHASONE SOD PHOSPHATE INJ 4 MG/1 ML VIAL IV SCH (18:00)
--- NOTE | 2020-05-24 18:35 | PDOC CRITICAL CARE PROG REPORT ---
General Date:: 05/24/20 ICU Day:: 11 Hospital Day:: 15 Resuscitation Status: Full Code Events in the past 12 to 24 Hours:: 05/24: Remains on AVAPS 16/400/70%/8. He remains on dexamethasone 4 mg IV every 8 hours. WBC 19.7 (87% neutrophils, no bands). On empiric vancomycin for leukocytosis. The patient has responded well to use of morphine for agitation. Respiratory rate fluctuates from 14-20. Last chest x-ray was obtained on 05/17. Review of systems relevant to events:: Pulmonary: Acute hypoxemic respiratory failure, COVID-19 pneumonia Cardiovascular: Bradycardia arrhythmia Reason for ICU Addmission:: acute hypoxemic respiratory failure due to COVID-19 pneumonia - Medications: Medications reviewed and adjusted accordingly: Yes Physical Exam Vital Signs: Temp Pulse Resp BP Pulse Ox 97.6 F 56 L 18 116/63 96 05/24/20 08:00 05/24/20 11:51 05/24/20 11:51 05/24/20 10:39 05/24/20 11:51 Intake & Output 05/23/20 05/24/20 05/25/20 06:59 06:59 06:59 Intake Total 750 1003 48 Output Total 100 580 200 Balance 650 423 -152 Weight 69.3 kg 71.7 kg Weight/Height Weight 71.7 kg Height 1.73 m General appearance: PRESENT: mild distress, well-developed, well-nourished Head exam: PRESENT: normocephalic, other - Pressure sore on bridge of the nose Eye exam: PRESENT: conjunctiva pink, EOMI, PERRLA. ABSENT: scleral icterus Mouth exam: PRESENT: dry mucosa, tongue midline Neck exam: ABSENT: carotid bruit, JVD, lymphadenopathy, thyromegaly Respiratory exam: PRESENT: crackles - In the bases, decreased breath sounds, rales - Scattered, rhonchi - Scattered rhonchi in the bases. ABSENT: wheezes Cardiovascular exam: PRESENT: bradycardia, RRR. ABSENT: diastolic murmur, rubs, systolic murmur Pulses: PRESENT: normal carotid pulses, normal radial pulses, normal dorsalis pedis pul GI/Abdominal exam: PRESENT: normal bowel sounds, soft. ABSENT: distended, guarding, mass, organolmegaly, rebound, tenderness Gentrourinary exam: PRESENT: indwelling catheter - Coude catheter Extremities exam: PRESENT: full ROM, pedal edema, +1 edema. ABSENT: calf tenderness, clubbing Musculoskeletal exam: PRESENT: normal inspection. ABSENT: deformity Neurological exam: PRESENT: awake, reflexes normal, CN II-XII grossly intact. ABSENT: motor sensory deficit Psychiatric exam: PRESENT: depressed, flat affect Skin exam: PRESENT: dry, intact, warm. ABSENT: cyanosis, rash Tubes/Lines: PRESENT: Central Line Laboratory/Radiographs Laboratory Results: 05/24/20 05:30 05/24/20 03:40 05/23/20 05/24/20 05/24/20 23:05 03:40 03:40 WBC Cancelled RBC Cancelled Hgb Cancelled Hct Cancelled MCV Cancelled MCH Cancelled MCHC Cancelled RDW Cancelled Plt Count Cancelled Seg Neutrophils % Cancelled Carbonic Acid HCO3/H2CO3 Ratio ABG pH ABG pCO2 ABG pO2 ABG HCO3 ABG O2 Saturation ABG Base Excess FiO2 Sodium 127.7 L Potassium 6.1 H* Chloride 96 L Carbon Dioxide 29 Anion Gap 3 L BUN 49 H Creatinine 1.17 Est GFR ( Amer) > 60 Glucose 491 H* Lactic Acid Calcium 7.9 L Phosphorus 5.6 H Magnesium 2.5 H Prealbumin 13.2 L Urine Color DARK YELLOW Urine Appearance CLOUDY Urine pH 5.0 Ur Specific [place] 1.024 Urine Protein 30 H Urine Glucose (UA) >=500 H Urine Ketones NEGATIVE Urine Blood MODERATE H Urine Nitrite NEGATIVE Ur Leukocyte Esterase NEGATIVE Urine WBC (Auto) 4 Urine RBC (Auto) 16 05/24/20 05/24/20 05/24/20 03:40 05:30 08:45 WBC 19.7 H RBC 4.52 Hgb 13.9 Hct 42.0 MCV 93 MCH 30.7 MCHC 33.1 RDW 14.8 H Plt Count 85 L Seg Neutrophils % Not Reportable Carbonic Acid 1.46 H HCO3/H2CO3 Ratio 17:1 ABG pH 7.33 L ABG pCO2 48.5 H ABG pO2 67.6 L ABG HCO3 24.9 H ABG O2 Saturation 92.1 L ABG Base Excess -1.6 FiO2 70% Sodium Potassium Chloride Carbon Dioxide Anion Gap BUN Creatinine Est GFR ( Amer) Glucose Lactic Acid 1.3 Calcium Phosphorus Magnesium Prealbumin Urine Color Urine Appearance Urine pH Ur Specific [place] Urine Protein Urine Glucose (UA) Urine Ketones Urine Blood Urine Nitrite Ur Leukocyte Esterase Urine WBC (Auto) Urine RBC (Auto) 05/10/20 05/10/20 05/11/20 17:46 17:46 02:34 Creatine Kinase 620 H CK-MB (CK-2) 4.33 Troponin I < 0.012 NT-Pro-B Natriuret Pep 05/14/20 05/15/20 05/15/20 12:18 04:45 04:45 Creatine Kinase CK-MB (CK-2) 0.79 Troponin I < 0.012 < 0.012 NT-Pro-B Natriuret Pep 05/17/20 05/24/20 04:31 03:40 Creatine Kinase CK-MB (CK-2) Troponin I NT-Pro-B Natriuret Pep 237 61 Impressions: Venous Doppler Study 05/13/20 00:00 IMPRESSION: 1. No sonographic evidence for lower extremity deep venous thrombosis in either leg. Chest X-Ray 05/17/20 05:00 IMPRESSION: No pneumothorax noted and essentially resolved pneumomediastinum with continued bilateral opacities likely related to COVID 19 pneumonia. All labs, radiographs, diagnostic studies and EKGs were personally reviewed: Yes In addition, reports of radiographic and diagnostic studies were read: Yes Assessment and Plan - Diagnosis (1) Acute hypoxemic respiratory failure due to COVID-19 Is this a current diagnosis for this admission?: Yes Plan: Of note, the patient maintains PaO2 68 despite decrease from FiO2 100% to 70%. It is noted that the patient's pH drifted from 7.41-->7.33 with increased use of morphine. Respiratory suppression must be avoided. He has completed hydroxychloroquine/azithromycin. Continue heparin infusion. He remains on Decadron. Decrease dosing. He is on famotidine for GI prophylaxis. Stop vancomycin in the absence of compelling indication for continued use. (2) Chronic obstructive pulmonary disease Qualifiers: COPD type: unspecified COPD Qualified Code(s): J44.9 - Chronic obstructive pulmonary disease, unspecified Is this a current diagnosis for this admission?: Yes Plan: Continue albuterol. Add budesonide. (3) Normocytic anemia Is this a current diagnosis for this admission?: Yes Plan: Stable, hemoglobin 13.9. (4) Depression Qualifiers: Depression Type: unspecified Qualified Code(s): F32.9 - Major depressive disorder, single episode, unspecified Is this a current diagnosis for this admission?: Yes (5) Hyperkalemia Is this a current diagnosis for this admission?: Yes Plan: Normal saline 500 mL bolus. (6) Steroid-induced diabetes Is this a current diagnosis for this admission?: Yes Plan: Decrease Decadron. Continue insulin infusion. (7) Protein-calorie malnutrition, mild Is this a current diagnosis for this admission?: Yes Plan: On TPN. Prealbumin improving. Critical Time Critical Time (minutes): 120 Level of Care: ICU -: 1. The care of a critical patient is a dynamic process. This note is a fulfillment representative synopsis but static in nature. The timeframe for treatments given in order is not necessarily the actual time these treatments may have been done. 2. This patient requires critical care secondary to ongoing requirements for therapy not offered or safe outside the critical care environment. Transfer to a lower level of care will result in altered life or limb morbidity and mortality. 3. Multidisciplinary rounds completed. 4. ABCDE bundle addressed.
[2020-05-24] MEDS: BUDESONIDE NEB 0.25 MG/2 ML AMPUL NEB SCH (19:41)
[2020-05-24] MEDS ORDERED: INSULIN GLARGINE,HUM.REC.ANLOG 1,000 UNIT/10 ML VIAL (PYX) SUBCUT ONE ×2 (20:04→21:00)
[2020-05-24] MEDS: INSULIN GLARGINE,HUM.REC.ANLOG 1,000 UNIT/10 ML VIAL SUBCUT SCH (22:35)
[2020-05-25] MEDS: HEPARIN SODIUM,PORCINE/D5W 25,000 UNIT/250 ML RTUINJ IV PRN (02:10)
[2020-05-25] MEDS: MORPHINE SULFATE 10 MG/ML INJ IV PRN ×2 (02:44→14:44)
[2020-05-25] MEDS: ALBUTEROL SULFATE 0.083% NEB 2.5 MG/3 ML AMPUL NEB SCH ×5 (03:59→20:36)
[2020-05-25] MEDS ORDERED: DEXTROSE 40% GEL 15 GM TUBE PO PRN ×2 (05:24)
[2020-05-25] MEDS ORDERED: DEXTROSE 50%-WATER 25 GM/50 ML DISP.SYRIN IV PRN ×2 (05:24)
[2020-05-25] MEDS ORDERED: GLUCAGON,HUMAN RECOMB 1 MG INJ IM PRN (05:24)
[2020-05-25] MEDS ORDERED: DEXAMETHASONE SOD PHOS INJ 10 MG/1 ML VIAL IV SCH (06:00)
[2020-05-25 06:39] LABS: BLOOD UREA NITROGEN 59 mg/dL (7-20); CALCIUM 7.7 mg/dL (8.4-10.2); GLUCOSE 226 mg/dL (75-110); PHOSPHORUS 5.4 mg/dL (2.5-4.5)
[2020-05-25 06:43] LABS: CARBON DIOXIDE 30 mmol/L (22-30)
[2020-05-25 06:44] LABS: ANION GAP 2 (5-19); CHLORIDE 99 mmol/L (98-107)
[2020-05-25] MEDS: INSULIN REG, HUMAN 100 UNIT/ML 3 ML VIAL (PYX) SUBCUT SCH ×4 (06:46→21:51)
[2020-05-25 06:49] LABS: POTASSIUM 6.1 mmol/L (3.6-5.0)
[2020-05-25 06:50] LABS: HEMATOCRIT 41.4 % (37.9-51.0); HEMOGLOBIN 14.1 g/dL (13.5-17.0); MEAN CORPUSCULAR HEMOGLOBIN 31.3 pg (27.0-33.4); MEAN CORPUSCULAR HGB CONC 34.1 g/dL (32.0-36.0); MEAN CORPUSCULAR VOLUME 92 fl (80-97); RED BLOOD COUNT 4.51 10^6/uL (4.35-5.55); RED CELL DISTRIBUTION WIDTH 14.7 % (11.5-14.0); WHITE BLOOD COUNT 19.8 10^3/uL (4.0-10.5)
[2020-05-25 06:52] LABS: ARTERIAL BLOOD FIO2 60%; ARTERIAL BLOOD H2CO3 1.63 mmol/L (1.05-1.35); ARTERIAL BLOOD HCO3 26.3 mmol/L (20-24); ARTERIAL BLOOD O2 SATURATION 87.4 % (94-98); ARTERIAL BLOOD PCO2 54.2 mmHg (35-45); ARTERIAL BLOOD PO2 58.6 mmHg (80-100)
[2020-05-25] MEDS: BUDESONIDE NEB 0.25 MG/2 ML AMPUL NEB SCH ×2 (08:06→20:36)
[2020-05-25 08:25] LABS: PLATELET COUNT 70 10^3/uL (150-450)
[2020-05-25 08:30] LABS: ABSOLUTE LYMPHOCYTES# (MANUAL) 1.4 10^3/uL (0.5-4.7); ABSOLUTE MONOCYTES # (MANUAL) 1.8 10^3/uL (0.1-1.4); BASOPHILS % (MANUAL) 0 % (0-2); EOSINOPHILS % (MANUAL) 0 % (0-6); LYMPHOCYTES % (MANUAL) 5 % (13-45); MONOCYTES % (MANUAL) 9 % (3-13); MYELOCYTES % (MANUAL) 2 % (0); SEGMENTED NEUTROPHILS % (MAN) 82 % (42-78); TOTAL CELLS COUNTED 100
[2020-05-25 08:31] LABS: ANISOCYTOSIS SLIGHT
[2020-05-25 08:34] LABS: PLATELET COMMENT DECREASED
--- NOTE | 2020-05-25 08:50 | RADIOLOGY REPORT (SQ) ---
EXAM DESCRIPTION: CHEST SINGLE VIEW IMAGES COMPLETED DATE/TIME: 05/25/2020 8:26 am REASON FOR STUDY: Intubated, COVID COMPARISON: 05/24/2020 NUMBER OF VIEWS: One view. TECHNIQUE: Single frontal radiographic image of the chest acquired. LIMITATIONS: None. FINDINGS: LUNGS AND PLEURA: Diffuse interstitial alveolar opacities with more confluent density in t he left costophrenic angle not significantly changed. MEDIASTINUM AND HEART: Stable heart size and mediastinal structures. SUPPORT DEVICES: Appropriate location without change. BONY STRUCTURES: No acute findings. HARDWARE: None. OTHER: No other significant finding. IMPRESSION: STABLE APPEARANCE OF THE CHEST. SUPPORT DEVICES UNCHANGED. Reading location - IP/workstation name: [email or web address]
[2020-05-25] MEDS: AMINO ACIDS 5 %/DEXTROSE 20 % 1,000 ML IV PRN (09:53)
[2020-05-25] MEDS: INSULIN GLARGINE,HUM.REC.ANLOG 1,000 UNIT/10 ML VIAL SUBCUT SCH ×2 (10:59→21:51)
[2020-05-25] MEDS: LISINOPRIL 10 MG TABLET PO SCH (11:16)
[2020-05-25] MEDS: CITALOPRAM HYDROBROMIDE 20 MG TABLET PO SCH (11:16)
[2020-05-25 13:25] LABS: PATH REVIEW PATHOLOGIST REVIEWED
[2020-05-25] MEDS ORDERED: FUROSEMIDE INJ/PF 40 MG/4 ML SDV IV ONE (14:30)
[2020-05-25 15:06] LABS: APPEARANCE,URINE CLOUDY; BILIRUBIN,URINE NEGATIVE (NEGATIVE); COLOR,URINE RED; GLUCOSE, URINE >=500 mg/dL (NEGATIVE); KETONES,URINE NEGATIVE (NEGATIVE); LEUKOCYTE ESTERASE,URINE TRACE (NEGATIVE); NITRITE,URINE NEGATIVE (NEGATIVE); PROTEIN,URINE 100 mg/dL (NEGATIVE); URINE SPECIFIC GRAVITY 1.014; UROBILINOGEN,URINE NEGATIVE mg/dL (<2.0)
--- NOTE | 2020-05-25 17:25 | RADIOLOGY REPORT (SQ) ---
EXAM DESCRIPTION: CHEST SINGLE VIEW IMAGES COMPLETED DATE/TIME: 05/25/2020 4:52 pm REASON FOR STUDY: acute hypoxia COMPARISON: 05/25/2020 EXAM PARAMETERS: NUMBER OF VIEWS: One view. TECHNIQUE: Single frontal radiographic view of the chest acquired. RADIATION DOSE: NA LIMITATIONS: None. FINDINGS: LUNGS AND PLEURA: Patchy opacification in the left base with milder changes in the right b ase. MEDIASTINUM AND HILAR STRUCTURES: Pneumomediastinum is improved. No pneumothorax. HEART AND VASCULAR STRUCTURES: Heart size is borderline. BONES: No acute findings. HARDWARE: Right internal jugular catheter has its tip in the superior vena cava. OTHER: No other significant finding. IMPRESSION: Improved pneumomediastinum. Borderline cardiomegaly without kory pulmonary edema. Air space opacities in the lung bases, left more than right, atelectasis versus pneumonia. TECHNICAL DOCUMENTATION: JOB ID: [id number] 2010 [employer]- All Rights Reserved Reading location - IP/workstation name: [email or web address]
[2020-05-25] MEDS: DEXAMETHASONE SOD PHOS INJ 10 MG/1 ML VIAL IV SCH (18:46)
[2020-05-25] MEDS: MIRTAZAPINE 15 MG TABLET PO SCH (21:51)
[2020-05-25] MEDS: QUETIAPINE FUMARATE 100 MG TABLET PO SCH (21:52)
[2020-05-25] MEDS ORDERED: INSULIN REG, HUMAN 100 UNIT/ML 3 ML VIAL (PYX) SUBCUT ONE (23:48)
[2020-05-26] MEDS: HEPARIN SODIUM,PORCINE/D5W 25,000 UNIT/250 ML RTUINJ IV PRN (00:08)
[2020-05-26] MEDS: MORPHINE SULFATE 10 MG/ML INJ IV PRN ×3 (00:28→21:06)
[2020-05-26] MEDS: ALBUTEROL SULFATE 0.083% NEB 2.5 MG/3 ML AMPUL NEB SCH ×6 (01:00→20:44)
[2020-05-26] MEDS: INSULIN REG, HUMAN 100 UNIT/ML 3 ML VIAL (PYX) SUBCUT SCH ×4 (03:35→21:05)
[2020-05-26 03:50] LABS: HEMATOCRIT 43.9 % (37.9-51.0); HEMOGLOBIN 14.6 g/dL (13.5-17.0); MEAN CORPUSCULAR HEMOGLOBIN 30.7 pg (27.0-33.4); MEAN CORPUSCULAR HGB CONC 33.3 g/dL (32.0-36.0); MEAN CORPUSCULAR VOLUME 92 fl (80-97); RED BLOOD COUNT 4.76 10^6/uL (4.35-5.55); RED CELL DISTRIBUTION WIDTH 14.7 % (11.5-14.0); WHITE BLOOD COUNT 19.6 10^3/uL (4.0-10.5)
[2020-05-26 03:51] LABS: PLATELET COUNT 61 10^3/uL (150-450)
[2020-05-26 04:05] LABS: ABSOLUTE LYMPHOCYTES# (MANUAL) 0.2 10^3/uL (0.5-4.7); ABSOLUTE MONOCYTES # (MANUAL) 0.6 10^3/uL (0.1-1.4); BASOPHILS % (MANUAL) 0 % (0-2); EOSINOPHILS % (MANUAL) 0 % (0-6); LYMPHOCYTES % (MANUAL) 1 % (13-45); MONOCYTES % (MANUAL) 3 % (3-13); SEGMENTED NEUTROPHILS % (MAN) 96 % (42-78); TOTAL CELLS COUNTED 100
[2020-05-26 04:08] LABS: ANISOCYTOSIS SLIGHT; PLATELET COMMENT DECREASED
[2020-05-26 04:19] LABS: ALBUMIN 2.6 g/dL (3.5-5.0); ALKALINE PHOSPHATASE 213 U/L (38-126); ANION GAP 8 (5-19); ASPARTATE AMINO TRANSFERASE 48 U/L (17-59); BLOOD UREA NITROGEN 71 mg/dL (7-20); CALCIUM 8.1 mg/dL (8.4-10.2); CARBON DIOXIDE 29 mmol/L (22-30); CHLORIDE 96 mmol/L (98-107); GLUCOSE 322 mg/dL (75-110); PHOSPHORUS 5.1 mg/dL (2.5-4.5); POTASSIUM 5.7 mmol/L (3.6-5.0); TOTAL PROTEIN 5.7 g/dL (6.3-8.2)
[2020-05-26 04:20] LABS: APPEARANCE,URINE SLIGHTLY-CLOUDY; BILIRUBIN,URINE NEGATIVE (NEGATIVE); COLOR,URINE YELLOW; GLUCOSE, URINE >=500 mg/dL (NEGATIVE); KETONES,URINE NEGATIVE (NEGATIVE); LEUKOCYTE ESTERASE,URINE NEGATIVE (NEGATIVE); NITRITE,URINE NEGATIVE (NEGATIVE); PROTEIN,URINE 30 mg/dL (NEGATIVE); URINE SPECIFIC GRAVITY 1.009; UROBILINOGEN,URINE NEGATIVE mg/dL (<2.0)
[2020-05-26 04:39] LABS: BILIRUBIN,TOTAL 1.4 mg/dL (0.2-1.3); NEONATAL BILIRUBIN RESULT 0.7 mg/dL (0.1-1.1)
[2020-05-26] MEDS: DEXAMETHASONE SOD PHOS INJ 10 MG/1 ML VIAL IV SCH ×2 (05:42→17:43)
--- NOTE | 2020-05-26 08:08 | PDOC CRITICAL CARE PROG REPORT ---
General Date:: 05/25/20 ICU Day:: 12 Hospital Day:: 16 Resuscitation Status: Full Code Events in the past 12 to 24 Hours:: 05/24: Remains on AVAPS 16/400/70%/8. He remains on dexamethasone 4 mg IV every 8 hours. WBC 19.7 (87% neutrophils, no bands). On empiric vancomycin for leukocytosis. The patient has responded well to use of morphine for agitation. Respiratory rate fluctuates from 14-20. Last chest x-ray was obtained on 05/17. 05/25: Tolerated transition from AVAPS to CPAP yesterday. Now on high flow nasal cannula with nonrebreather. SPO2 in the 90s. Respiratory rate 18-24. Flat affect. However, he admits that he is happy to have the CPAP mask off his face. Visible breakdown of the nasal bridge. He is on dexamethasone 3 mg IV every 8 hours. WBC 19.8 (82% neutrophils, no bands). Off antibiotics. Morphine was adjusted to 2 mg IV every 3 hours as needed yesterday. Chest x-ray demonstrated pneumomediastinum again. No pneumothorax. Review of systems relevant to events:: Pulmonary: Acute hypoxemic respiratory failure, COVID-19 pneumonia Cardiovascular: Bradycardia arrhythmia Reason for ICU Addmission:: acute hypoxemic respiratory failure due to COVID-19 pneumonia - Medications: Medications reviewed and adjusted accordingly: Yes Physical Exam Vital Signs: Temp Pulse Resp BP Pulse Ox 97.2 F 56 L 19 110/64 95 05/25/20 04:00 05/25/20 12:46 05/25/20 12:46 05/25/20 09:39 05/25/20 12:46 Intake & Output 05/24/20 05/25/20 05/26/20 06:59 06:59 06:59 Intake Total 1003 388 Output Total 580 9475 500 Balance 454 -9050 -500 Weight 71.7 kg 73.9 kg Weight/Height Weight 73.9 kg Height 1.73 m General appearance: PRESENT: no acute distress, well-developed, well-nourished Head exam: PRESENT: atraumatic, normocephalic Eye exam: PRESENT: conjunctiva pink, EOMI, PERRLA, scleral icterus Mouth exam: PRESENT: dry mucosa, tongue midline Neck exam: ABSENT: carotid bruit, JVD, lymphadenopathy, thyromegaly Respiratory exam: PRESENT: crackles, decreased breath sounds. ABSENT: rales, rhonchi, wheezes Cardiovascular exam: PRESENT: bradycardia, RRR. ABSENT: diastolic murmur, rubs, systolic murmur Pulses: PRESENT: normal dorsalis pedis pul GI/Abdominal exam: PRESENT: normal bowel sounds, soft. ABSENT: distended, guarding, mass, organolmegaly, rebound, tenderness Gentrourinary exam: PRESENT: indwelling catheter - Brown urine noted in the catheter circuit and bag (hematuria versus bilirubin) Extremities exam: PRESENT: full ROM, pedal edema. ABSENT: calf tenderness, clubbing Neurological exam: PRESENT: alert, awake, reflexes normal, CN II-XII grossly intact. ABSENT: motor sensory deficit Psychiatric exam: PRESENT: flat affect. ABSENT: agitated, anxious Skin exam: PRESENT: abrasion - Nasal bridge, dry, intact, warm. ABSENT: cyanosis, rash Tubes/Lines: PRESENT: Central Line - R IJ Laboratory/Radiographs Laboratory Results: 05/25/20 05:35 05/25/20 05:35 05/24/20 05/25/20 05/25/20 20:15 05:35 05:35 WBC 19.8 H RBC 4.51 Hgb 14.1 Hct 41.4 MCV 92 MCH 31.3 MCHC 34.1 RDW 14.7 H Plt Count 70 L Seg Neutrophils % Not Reportable Carbonic Acid HCO3/H2CO3 Ratio ABG pH ABG pCO2 ABG pO2 ABG HCO3 ABG O2 Saturation ABG Base Excess FiO2 Sodium 130.6 L Potassium 6.1 H* Chloride 99 Carbon Dioxide 30 Anion Gap 2 L BUN 59 H Creatinine 1.49 H Est GFR ( Amer) 55 L Glucose 226 H Calcium 7.7 L Phosphorus 5.4 H Magnesium 2.6 H Triglycerides 117 05/25/20 06:37 WBC RBC Hgb Hct MCV MCH MCHC RDW Plt Count Seg Neutrophils % Carbonic Acid 1.63 H HCO3/H2CO3 Ratio 16:1 ABG pH 7.30 L ABG pCO2 54.2 H ABG pO2 58.6 L ABG HCO3 26.3 H ABG O2 Saturation 87.4 L ABG Base Excess -1.0 FiO2 60% Sodium Potassium Chloride Carbon Dioxide Anion Gap BUN Creatinine Est GFR ( Amer) Glucose Calcium Phosphorus Magnesium Triglycerides 05/10/20 05/10/20 05/11/20 17:46 17:46 02:34 Creatine Kinase 620 H CK-MB (CK-2) 4.33 Troponin I < 0.012 NT-Pro-B Natriuret Pep 05/14/20 05/15/20 05/15/20 12:18 04:45 04:45 Creatine Kinase CK-MB (CK-2) 0.79 Troponin I < 0.012 < 0.012 NT-Pro-B Natriuret Pep 05/17/20 05/24/20 04:31 03:40 Creatine Kinase CK-MB (CK-2) Troponin I NT-Pro-B Natriuret Pep 237 61 Impressions: Venous Doppler Study 05/13/20 00:00 IMPRESSION: 1. No sonographic evidence for lower extremity deep venous thrombosis in either leg. Chest X-Ray 05/25/20 00:00 IMPRESSION: STABLE APPEARANCE OF THE CHEST. SUPPORT DEVICES UNCHANGED. All labs, radiographs, diagnostic studies and EKGs were personally reviewed: Yes In addition, reports of radiographic and diagnostic studies were read: Yes Assessment and Plan - Diagnosis (1) Acute hypoxemic respiratory failure due to COVID-19 Is this a current diagnosis for this admission?: Yes Plan: 100% nonrebreather + high flow nasal cannula: Set FiO2 to maximum allowed (95%). Titrate flow rate ONLY to maintain SPO2 88+%. He has completed hydroxychloroquine/azithromycin. Continue heparin infusion. We will decrease Decadron dosing again tomorrow. He is on famotidine for GI prophylaxis. Decrease morphine to 1 mg IV every 2 hours as needed. Restart p.o. medications (especially, antidepressants). PT/OT evaluation for treatment plan. (2) Chronic obstructive pulmonary disease Qualifiers: COPD type: unspecified COPD Qualified Code(s): J44.9 - Chronic obstructive pulmonary disease, unspecified Is this a current diagnosis for this admission?: Yes Plan: Continue albuterol/budesonide. (3) Depression Qualifiers: Depression Type: unspecified Qualified Code(s): F32.9 - Major depressive disorder, single episode, unspecified Is this a current diagnosis for this admission?: Yes Plan: Home medications include: Celexa 40 mg p.o. daily, gabapentin 600 mg p.o. every 12 hours, Seroquel 50 mg p.o. nightly, Remeron 15 mg p.o. nightly. 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 He is currently on Lantus 25 units subcutaneously twice daily. Decrease dosing to nightly. Currently off insulin infusion. Should be able to transition back to sliding scale insulin coverage with dis continuation of steroids. (5) Normocytic anemia Is this a current diagnosis for this admission?: Yes (6) Hyperkalemia Is this a current diagnosis for this admission?: Yes Plan: Furosemide 40 mg IV single dose. (7) Protein-calorie malnutrition, mild Is this a current diagnosis for this admission?: Yes Critical Time Critical Time (minutes): 90 Level of Care: ICU -: 1. The care of a critical patient is a dynamic process. This note is a in store representative synopsis but static in nature. The timeframe for treatments given in order is not necessarily the actual time these treatments may have been done. 2. This patient requires critical care secondary to ongoing requirements for therapy not offered or safe outside the critical care environment. Transfer to a lower level of care will result in altered life or limb morbidity and mortality. 3. Multidisciplinary rounds completed. 4. ABCDE bundle addressed.
[2020-05-26] MEDS ORDERED: NORMAL SALINE 250 ML with ARGATROBAN 250 MG IV PRN ×2 (08:24)
[2020-05-26] MEDS ORDERED: ARGATROBAN 250 MG/NS 250 ML (NON-ESRD) IV PRN ×2 (08:28)
[2020-05-26] MEDS ORDERED: DEXTROSE 10%-WATER 1,000 ML IV PRN (08:30)
[2020-05-26] MEDS: BUDESONIDE NEB 0.25 MG/2 ML AMPUL NEB SCH ×2 (09:27→20:44)
--- NOTE | 2020-05-26 09:35 | RADIOLOGY REPORT (SQ) ---
EXAM DESCRIPTION: CHEST SINGLE VIEW IMAGES COMPLETED DATE/TIME: 05/26/2020 6:47 am REASON FOR STUDY: PNEUMOMEDIASTINUM COMPARISON: 05/25/2020 EXAM PARAMETERS: NUMBER OF VIEWS: One view. TECHNIQUE: Single frontal radiographic view of the chest acquired. RADIATION DOSE: NA LIMITATIONS: None. FINDINGS: LUNGS AND PLEURA: Mildly improved aeration with persistent patchy bibasilar opacities. No significant effusion. No appreciable pneumothorax. MEDIASTINUM AND HILAR STRUCTURES: Pneumomediastinum again noted. No discrete mass. HEART AND VASCULAR STRUCTURES: Enlarged, stable. Vascular calcifications. BONES: No acute findings. HARDWARE: Right internal jugular central venous catheter tip at cavoatrial junction. OTHER: No other significant finding. IMPRESSION: 1. Mildly improved bibasilar aeration with persistent patchy opacities. 2. Pneumomediastinum, grossly stable. TECHNICAL DOCUMENTATION: JOB ID: [id number] 2010 [employer]- All Rights Reserved Reading location - IP/workstation name: [email or web address]
[2020-05-26] MEDS ORDERED: INSULIN GLARGINE,HUM.REC.ANLOG 1,000 UNIT/10 ML VIAL SUBCUT SCH (10:00)
[2020-05-26] MEDS ORDERED: FAMOTIDINE 20 MG TABLET PO SCH (10:00)
[2020-05-26] MEDS: PANTOPRAZOLE SODIUM 40 MG VIAL IV SCH (11:16)
[2020-05-26] MEDS: CITALOPRAM HYDROBROMIDE 20 MG TABLET PO SCH (11:19)
[2020-05-26] MEDS: LISINOPRIL 10 MG TABLET PO SCH (11:19)
--- NOTE | 2020-05-26 17:57 | PDOC CRITICAL CARE PROG REPORT ---
General Date:: 05/26/20 ICU Day:: Hospital Day:: 16 Resuscitation Status: Full Code Events in the past 12 to 24 Hours:: 05/24: Remains on AVAPS 16/400/70%/8. He remains on dexamethasone 4 mg IV every 8 hours. WBC 19.7 (87% neutrophils, no bands). On empiric vancomycin for leukocytosis. The patient has responded well to use of morphine for agitation. Respiratory rate fluctuates from 14-20. Last chest x-ray was obtained on 05/17. 05/25: Tolerated transition from AVAPS to CPAP yesterday. Now on high flow nasal cannula with nonrebreather. SPO2 in the 90s. Respiratory rate 18-24. Flat affect. However, he admits that he is happy to have the CPAP mask off his face. Visible breakdown of the nasal bridge. He is on dexamethasone 3 mg IV every 8 hours. WBC 19.8 (82% neutrophils, no bands). Off antibiotics. Morphine was adjusted to 2 mg IV every 3 hours as needed yesterday. Chest x-ray demonstrated pneumomediastinum again. No pneumothorax. 05/26: Was able to spend more than 6 hours off CPAP yesterday (on nonrebreather plus high flow nasal cannula). Maintained SPO2 in the 90s. Did have a coughing and oxygen desaturation episode, which prompted restarting CPAP. The patient has maintained SPO2 98-100% all night with CPAP, for started at CPAP 8 then titrated down to CPAP 6. Becoming much more interactive. Labs today are notable for thrombocytopenia (platelets 61). Currently, on heparin infusion. Clinically, suspicious for heparin-induced thrombocytopenia. Review of systems relevant to events:: Pulmonary: Acute hypoxemic respiratory failure, COVID-19 pneumonia Cardiovascular: Bradycardia arrhythmia Reason for ICU Addmission:: acute hypoxemic respiratory failure due to COVID-19 pneumonia - Medications: Medications reviewed and adjusted accordingly: Yes Physical Exam Vital Signs: Temp Pulse Resp BP Pulse Ox 97.2 F 77 21 H 121/68 100 05/25/20 04:00 05/26/20 00:59 05/26/20 06:10 05/26/20 05:39 05/26/20 06:10 Intake & Output 05/25/20 05/26/20 05/27/20 06:59 06:59 06:59 Intake Total 388 222 Output Total 1485 9750 Balance -1097 -0602 Weight 73.9 kg 72.7 kg Weight/Height Weight 72.7 kg Height 1.73 m General appearance: PRESENT: no acute distress, well-developed, well-nourished Head exam: PRESENT: normocephalic, other - Pressure sore on the bridge of the nose Eye exam: PRESENT: conjunctiva pink, EOMI, PERRLA. ABSENT: scleral icterus Mouth exam: PRESENT: dry mucosa, moist, tongue midline Neck exam: ABSENT: carotid bruit, JVD, lymphadenopathy, thyromegaly Respiratory exam: PRESENT: crackles - Bilaterally, decreased breath sounds Cardiovascular exam: PRESENT: RRR. ABSENT: diastolic murmur, rubs, systolic m urmur Pulses: PRESENT: normal dorsalis pedis pul GI/Abdominal exam: PRESENT: normal bowel sounds, soft. ABSENT: distended, guarding, mass, organolmegaly, rebound, tenderness Gentrourinary exam: PRESENT: indwelling catheter Extremities exam: PRESENT: full ROM, pedal edema, +1 edema. ABSENT: calf te nderness, clubbing Musculoskeletal exam: PRESENT: normal inspection. ABSENT: deformity Neurological exam: PRESENT: alert, awake, reflexes normal, CN II-XII grossly intact. ABSENT: motor sensory deficit Psychiatric exam: PRESENT: flat affect. ABSENT: agitated, anxious Skin exam: PRESENT: abrasion - Nasal bridge, dry, intact, warm. ABSENT: cyanosis, rash Tubes/Lines: PRESENT: Central Line - Right IJ Laboratory/Radiographs Laboratory Results: 05/26/20 03:30 05/26/20 03:30 05/25/20 05/25/20 05/26/20 05:35 14:30 03:30 WBC 19.8 H 19.6 H RBC 4.51 4.76 Hgb 14.1 14.6 Hct 41.4 43.9 MCV 92 92 MCH 31.3 30.7 MCHC 34.1 33.3 RDW 14.7 H 14.7 H Plt Count 70 L 61 L Seg Neutrophils % Not Reportable Not Reportable Sodium Potassium Chloride Carbon Dioxide Anion Gap BUN Creatinine Est GFR ( Amer) Glucose Calcium Phosphorus Magnesium Total Bilirubin AST Alkaline Phosphatase Total Protein Albumin Urine Color RED Urine Appearance CLOUDY Urine pH 6.0 Ur Specific [place] 1.014 Urine Protein 100 H Urine Glucose (UA) >=500 H Urine Ketones NEGATIVE Urine Blood LARGE H Urine Nitrite NEGATIVE Ur Leukocyte Esterase TRACE H Urine WBC (Auto) 5 Urine RBC (Auto) >182 05/26/20 05/26/20 03:30 03:30 WBC RBC Hgb Hct MCV MCH MCHC RDW Plt Count Seg Neutrophils % Sodium 132.7 L Potassium 5.7 H Chloride 96 L Carbon Dioxide 29 Anion Gap 8 BUN 71 H Creatinine 1.85 H Est GFR ( Amer) 43 L Glucose 322 H Calcium 8.1 L Phosphorus 5.1 H Magnesium 2.8 H Total Bilirubin 1.4 H AST 48 Alkaline Phosphatase 213 H Total Protein 5.7 L Albumin 2.6 L Urine Color YELLOW Urine Appearance SLIGHTLY-CLOUDY Urine pH 5.0 Ur Specific [place] 1.009 Urine Protein 30 H Urine Glucose (UA) >=500 H Urine Ketones NEGATIVE Urine Blood LARGE H Urine Nitrite NEGATIVE Ur Leukocyte Esterase NEGATIVE Urine WBC (Auto) 16 Urine RBC (Auto) >182 05/10/20 05/10/20 05/11/20 17:46 17:46 02:34 Creatine Kinase 620 H CK-MB (CK-2) 4.33 Troponin I < 0.012 NT-Pro-B Natriuret Pep 05/14/20 05/15/20 05/15/20 12:18 04:45 04:45 Creatine Kinase CK-MB (CK-2) 0.79 Troponin I < 0.012 < 0.012 NT-Pro-B Natriuret Pep 05/17/20 05/24/20 04:31 03:40 Creatine Kinase CK-MB (CK-2) Troponin I NT-Pro-B Natriuret Pep 237 61 Impressions: Venous Doppler Study 05/13/20 00:00 IMPRESSION: 1. No sonographic evidence for lower extremity deep venous thrombosis in either leg. All labs, radiographs, diagnostic studies and EKGs were personally reviewed: Yes In addition, reports of radiographic and diagnostic studies were read: Yes Assessment and Plan - Diagnosis (1) Acute hypoxemic respiratory failure due to COVID-19 Is this a current diagnosis for this admission?: Yes Plan: 100% nonrebreather + high flow nasal cannula: Set FiO2 to maximum allowed (95%). Titrate flow rate ONLY to maintain SPO2 88+%. He has completed hydroxychloroquine/azithromycin. Stop heparin. Change to argatroban. We will decrease Decadron dosing again tomorrow. Continue morphine 1 mg IV every 2 hours as needed. Restart p.o. medications (especially, antidepressants), as tolerated. PT/OT evaluation for treatment plan. (2) Thrombocytopenia Is this a current diagnosis for this admission?: Yes Plan: Clinically suspicious for heparin-induced thrombocytopenia. Stop heparin. Start argatroban infusion. Stop famotidine. CBC in a.m. Heparin-induced thrombocytopenia evaluation tomorrow (after 24 hours off heparin). Heparin-induced PF4 antibodies will be checked. Apparently, ser otonin releasing assay is not available at this institution. (3) Chronic obstructive pulmonary disease Qualifiers: COPD type: unspecified COPD Qualified Code(s): J44.9 - Chronic obstructive pulmonary disease, unspecified Is this a current diagnosis for this admission?: Yes Plan: Continue albuterol/budesonide. 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 He is currently on Lantus 25 units subcutaneously nightly. Currently off insulin infusion. Should be able to transition back to sliding scale insulin coverage with discontinuation of steroids. (6) Normocytic anemia Is this a current diagnosis for this admission?: Yes (7) Hyperkalemia Is this a current diagnosis for this admission?: Yes (8) Protein-calorie malnutrition, mild Is this a current diagnosis for this admission?: Yes Plan: Continue TPN. Adjustments for hyperkalemia and hypermagnesemia discussed with pharmacy. Prealbumin improving. (9) Hematuria Is this a current diagnosis for this admission?: Yes Plan: attributed to injury from [place] insertion. Critical Time Critical Time (minutes): 60 Level of Care: ICU -: 1. The care of a critical patient is a dynamic process. This note is a contact representative synopsis but static in nature. The timeframe for treatments given in order is not necessarily the actual time these treatments may have been done. 2. This patient requires critical care secondary to ongoing requirements for therapy not offered or safe outside the critical care environment. Transfer to a lower level of care will result in altered life or limb morbidity and mortality. 3. Multidisciplinary rounds completed. 4. ABCDE bundle addressed.
[2020-05-26] MEDS: AMINO ACIDS 5 %/DEXTROSE 20 % 1,000 ML IV PRN (18:43)
[2020-05-26] MEDS: MIRTAZAPINE 15 MG TABLET PO SCH (22:25)
[2020-05-26] MEDS: QUETIAPINE FUMARATE 100 MG TABLET PO SCH (22:25)
[2020-05-26] MEDS: INSULIN GLARGINE,HUM.REC.ANLOG 1,000 UNIT/10 ML VIAL SUBCUT SCH (22:40)
[2020-05-27] MEDS: MORPHINE SULFATE 10 MG/ML INJ IV PRN ×4 (00:51→20:38)
[2020-05-27] MEDS: ALBUTEROL SULFATE 0.083% NEB 2.5 MG/3 ML AMPUL NEB SCH ×6 (00:53→19:46)
[2020-05-27] MEDS: INSULIN REG, HUMAN 100 UNIT/ML 3 ML VIAL (PYX) SUBCUT SCH ×4 (03:15→20:39)
[2020-05-27] MEDS: DEXAMETHASONE SOD PHOS INJ 10 MG/1 ML VIAL IV SCH ×2 (06:01→18:08)
[2020-05-27 06:56] LABS: BLOOD UREA NITROGEN 86 mg/dL (7-20); CALCIUM 7.8 mg/dL (8.4-10.2); CHLORIDE 100 mmol/L (98-107); GLUCOSE 376 mg/dL (75-110); PHOSPHORUS 5.7 mg/dL (2.5-4.5); POTASSIUM 5.9 mmol/L (3.6-5.0)
[2020-05-27 07:01] LABS: ANION GAP 6 (5-19); CARBON DIOXIDE 27 mmol/L (22-30)
[2020-05-27 07:03] LABS: PREALBUMIN 17.3 mg/dL (17.6-36.0)
[2020-05-27] MEDS: BUDESONIDE NEB 0.25 MG/2 ML AMPUL NEB SCH ×2 (08:31→19:46)
--- NOTE | 2020-05-27 08:42 | RADIOLOGY REPORT (SQ) ---
EXAM DESCRIPTION: CHEST SINGLE VIEW IMAGES COMPLETED DATE/TIME: 05/27/2020 7:54 am REASON FOR STUDY: pneumonia; pneumomediastinum COMPARISON: 05/26/2020. EXAM PARAMETERS: NUMBER OF VIEWS: One view. TECHNIQUE: Single frontal radiographic view of the chest acquired. RADIATION DOSE: NA LIMITATIONS: None. FINDINGS: LUNGS AND PLEURA: Faint basilar opacities, left greater than right, unchanged. Possible s mall left pleural effusion. No pneumothorax. MEDIASTINUM AND HILAR STRUCTURES: No masses. Contour normal. HEART AND VASCULAR STRUCTURES: Heart upper limits of normal in size. Normal vasculature. BONES: No acute findings. HARDWARE: Stable central line. OTHER: No other significant finding. IMPRESSION: No significant change. TECHNICAL DOCUMENTATION: JOB ID: [id number] 2010 [employer]- All Rights Reserved Reading location - IP/workstation name: [email or web address]
[2020-05-27] MEDS: LISINOPRIL 10 MG TABLET PO SCH (09:46)
[2020-05-27] MEDS: CITALOPRAM HYDROBROMIDE 20 MG TABLET PO SCH (09:46)
[2020-05-27 09:48] LABS: HEMATOCRIT 40.2 % (37.9-51.0); HEMOGLOBIN 13.3 g/dL (13.5-17.0); MEAN CORPUSCULAR HEMOGLOBIN 30.6 pg (27.0-33.4); MEAN CORPUSCULAR VOLUME 93 fl (80-97); RED BLOOD COUNT 4.35 10^6/uL (4.35-5.55); RED CELL DISTRIBUTION WIDTH 14.8 % (11.5-14.0); WHITE BLOOD COUNT 19.1 10^3/uL (4.0-10.5)
[2020-05-27 10:12] LABS: PLATELET COUNT 67 10^3/uL (150-450)
[2020-05-27 10:15] LABS: ABSOLUTE LYMPHOCYTES# (MANUAL) 0.6 10^3/uL (0.5-4.7); ABSOLUTE MONOCYTES # (MANUAL) 0.4 10^3/uL (0.1-1.4); ANISOCYTOSIS SLIGHT; BASOPHILS % (MANUAL) 0 % (0-2); EOSINOPHILS % (MANUAL) 0 % (0-6); LYMPHOCYTES % (MANUAL) 3 % (13-45); MONOCYTES % (MANUAL) 2 % (3-13); SEGMENTED NEUTROPHILS % (MAN) 95 % (42-78); TOTAL CELLS COUNTED 100
[2020-05-27 10:16] LABS: PLATELET COMMENT DECREASED
[2020-05-27] MEDS: PANTOPRAZOLE SODIUM 40 MG VIAL IV SCH (10:40)
[2020-05-27] MEDS: INSULIN GLARGINE,HUM.REC.ANLOG 1,000 UNIT/10 ML VIAL SUBCUT SCH ×2 (10:41→22:32)
[2020-05-27] MEDS: FAT EMULSIONS 250 ML IV SCH (10:52)
[2020-05-27] MEDS: AMINO ACIDS 5 %/DEXTROSE 20 % 1,000 ML IV PRN (10:52)
--- NOTE | 2020-05-27 17:43 | PDOC CRITICAL CARE PROG REPORT ---
General Date:: 05/27/20 ICU Day:: 14 Hospital Day:: 17 Resuscitation Status: Full Code Events in the past 12 to 24 Hours:: 05/24: Remains on AVAPS 16/400/70%/8. He remains on dexamethasone 4 mg IV every 8 hours. WBC 19.7 (87% neutrophils, no bands). On empiric vancomycin for leukocytosis. The patient has responded well to use of morphine for agitation. Respiratory rate fluctuates from 14-20. Last chest x-ray was obtained on 05/17. 05/25: Tolerated transition from AVAPS to CPAP yesterday. Now on high flow nasal cannula with nonrebreather. SPO2 in the 90s. Respiratory rate 18-24. Flat affect. However, he admits that he is happy to have the CPAP mask off his face. Visible breakdown of the nasal bridge. He is on dexamethasone 3 mg IV every 8 hours. WBC 19.8 (82% neutrophils, no bands). Off antibiotics. Morphine was adjusted to 2 mg IV every 3 hours as needed yesterday. Chest x-ray demonstrated pneumomediastinum again. No pneumothorax. 05/26: Was able to spend more than 6 hours off CPAP yesterday (on nonrebreather plus high flow nasal cannula). Maintained SPO2 in the 90s. Did have a coughing and oxygen desaturation episode, which prompted restarting CPAP. The patient has maintained SPO2 98-100% all night with CPAP, for started at CPAP 8 then titrated down to CPAP 6. Becoming much more interactive. Labs today are notable for thrombocytopenia (platelets 61). Currently, on heparin infusion. Clinically, suspicious for heparin-induced thrombocytopenia. 05/27: The patient tolerated supplemental oxygen (without NIPPV) all night long. In fact, he is no longer needing a nonrebreather mask. He is on high flow nasal cannula at 50 LPM, FiO2 95%. Respiratory rate 20. SPO2 97%. He is awake. Continues to demonstrate flat affect. He is interactive. Nurse reports that he is unable to take p.o. medications at this time due to choking. Started ARC Atrovent infusion yesterday for suspected heparin-induced thrombocytopenia. Review of systems relevant to events:: Pulmonary: Acute hypoxemic respiratory failure, COVID-19 pneumonia Cardiovascular: Bradycardia arrhythmia Reason for ICU Addmission:: acute hypoxemic respiratory failure due to COVID-19 pneumonia - Medications: Medications reviewed and adjusted accordingly: Yes Physical Exam Vital Signs: Temp Pulse Resp BP Pulse Ox 98.2 F 56 L 17 177/71 H 92 05/27/20 04:00 05/27/20 04:24 05/27/20 06:00 05/27/20 05:40 05/27/20 06:00 Intake & Output 05/26/20 05/27/20 05/28/20 06:59 06:59 06:59 Intake Total 222 110 Output Total 3540 1520 Balance -3318 -1410 Weight 72.7 kg 72 kg Weight/Height Weight 72 kg Height 1.73 m General appearance: PRESENT: no acute distress, well-developed, well-nourished Head exam: PRESENT: atraumatic, normocephalic Eye exam: PRESENT: conjunctiva pink, EOMI, PERRLA. ABSENT: scleral icterus Mouth exam: PRESENT: moist, tongue midline Neck exam: ABSENT: carotid bruit, JVD, lymphadenopathy, thyromegaly Respiratory exam: PRESENT: crackles, decreased breath sounds Pulses: PRESENT: normal dorsalis pedis pul GI/Abdominal exam: PRESENT: normal bowel sounds, soft. ABSENT: distended, guarding, mass, organolmegaly, rebound, tenderness Gentrourinary exam: PRESENT: indwelling catheter Extremities exam: PRESENT: full ROM, pedal edema. ABSENT: calf tenderness, cl ubbing Neurological exam: PRESENT: alert, awake, oriented to person, oriented to place, oriented to situation, CN II-XII grossly intact. ABSENT: motor sensory deficit Psychiatric exam: PRESENT: flat affect. ABSENT: agitated, anxious Skin exam: PRESENT: dry, intact, warm. ABSENT: cyanosis, rash Tubes/Lines: PRESENT: Central Line Laboratory/Radiographs Laboratory Results: 05/26/20 03:30 05/27/20 06:15 05/27/20 06:15 Sodium 132.6 L Potassium 5.9 H Chloride 100 Carbon Dioxide 27 Anion Gap 6 BUN 86 H Creatinine 1.93 H Est GFR ( Amer) 41 L Glucose 376 H Calcium 7.8 L Phosphorus 5.7 H Magnesium 3.0 H Prealbumin 17.3 L 05/23/20 23:05 Barbosa Catheter Urine Culture - Final NO GROWTH 2 DAYS 05/21/20 09:42 Blood Blood Culture - Final NO GROWTH IN 5 DAYS 05/21/20 08:32 Blood Blood Culture - Final NO GROWTH IN 5 DAYS 05/10/20 05/10/20 05/11/20 17:46 17:46 02:34 Creatine Kinase 620 H CK-MB (CK-2) 4.33 Troponin I < 0.012 NT-Pro-B Natriuret Pep 05/14/20 05/15/20 05/15/20 12:18 04:45 04:45 Creatine Kinase CK-MB (CK-2) 0.79 Troponin I < 0.012 < 0.012 NT-Pro-B Natriuret Pep 05/17/20 05/24/20 04:31 03:40 Creatine Kinase CK-MB (CK-2) Troponin I NT-Pro-B Natriuret Pep 237 61 Impressions: Venous Doppler Study 05/13/20 00:00 IMPRESSION: 1. No sonographic evidence for lower extremity deep venous thrombosis in either leg. All labs, radiographs, diagnostic studies and EKGs were personally reviewed: Yes In addition, reports of radiographic and diagnostic studies were read: Yes Assessment and Plan - Diagnosis (1) Acute hypoxemic respiratory failure due to COVID-19 Is this a current diagnosis for this admission?: Yes Plan: Wean high flow nasal cannula as tolerated: Set FiO2 to maximum allowed (95%). T itrate flow rate ONLY to maintain SPO2 88+%. He has completed hydroxychloroquine/azithromycin. Continue ARC Atrovent infusion. CBC pending. Decrease Decadron to 1 mg IV every 8 hours. Continue morphine 1 mg IV every 4 hours as needed. Restart p.o. medications (especially, antidepressants), as tolerated. PT/OT evaluation for treatment plan. (2) Thrombocytopenia Is this a current diagnosis for this admission?: Yes Plan: Clinically suspicious for heparin-induced thrombocytopenia. Off famotidine. Continue argatroban infusion. CBC pending. Heparin-induced thrombocytopenia evaluation scheduled for today (after 24 hours off heparin). Heparin-induced PF4 antibodies will be checked. Apparently, serotonin releasing assay is not available at this institution. (3) Chronic obstructive pulmonary disease Qualifiers: COPD type: unspecified COPD Qualified Code(s): J44.9 - Chronic obstructive pulmonary disease, unspecified Is this a current diagnosis for this admission?: Yes Plan: Continue albuterol/budesonide. 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 Increase Lantus to 25 units subcutaneously twice twice daily Currently off insulin infusion. His hyperglycemia is causing pseudohyponatremia. (6) Normocytic anemia Is this a current diagnosis for this admission?: Yes (7) Hyperkalemia Is this a current diagnosis for this admission?: Yes (8) Protein-calorie malnutrition, mild Is this a current diagnosis for this admission?: Yes Plan: Prealbumin improving. Continue TPN. Adjustments for hyperkalemia and hypermagnesemia discussed with pharmacy. (9) Hematuria Qualifiers: Hematuria type: unspecified type Qualified Code(s): R31.9 - Hematuria, unspecified Is this a current diagnosis for this admission?: Yes Plan: attributed to injury from Barbosa insertion. Monitor hemoglobin. Critical Time Critical Time (minutes): 120 Level of Care: ICU -: 1. The care of a critical patient is a dynamic process. This note is a livestock sales representative synopsis but static in nature. The timeframe for treatments given in order is not necessarily the actual time these treatments may have been done. 2. This patient requires critical care secondary to ongoing requirements for therapy not offered or safe outside the critical care environment. Transfer to a lower level of care will result in altered life or limb morbidity and mortality. 3. Multidisciplinary rounds completed. 4. ABCDE bundle addressed.
[2020-05-27] MEDS: NORMAL SALINE 250 ML with ARGATROBAN 250 MG IV PRN ×2 (19:00)
[2020-05-27] MEDS: MIRTAZAPINE 15 MG TABLET PO SCH (22:30)
[2020-05-27] MEDS: QUETIAPINE FUMARATE 100 MG TABLET PO SCH (22:31)
[2020-05-28] MEDS: ALBUTEROL SULFATE 0.083% NEB 2.5 MG/3 ML AMPUL NEB SCH ×6 (00:29→20:32)
[2020-05-28] MEDS: DEXAMETHASONE SOD PHOS INJ 10 MG/1 ML VIAL IV SCH ×3 (02:50→17:43)
[2020-05-28] MEDS: MORPHINE SULFATE 10 MG/ML INJ IV PRN ×4 (02:50→21:06)
[2020-05-28] MEDS: INSULIN REG, HUMAN 100 UNIT/ML 3 ML VIAL (PYX) SUBCUT SCH ×4 (03:00→23:16)
[2020-05-28] MEDS ORDERED: LIDOCAINE 2% URO-JET 5 ML KIT MM ONE (03:01)
[2020-05-28 06:34] LABS: HEMATOCRIT 41.8 % (37.9-51.0); HEMOGLOBIN 13.7 g/dL (13.5-17.0); MEAN CORPUSCULAR HEMOGLOBIN 30.3 pg (27.0-33.4); MEAN CORPUSCULAR HGB CONC 32.8 g/dL (32.0-36.0); MEAN CORPUSCULAR VOLUME 92 fl (80-97); RED BLOOD COUNT 4.53 10^6/uL (4.35-5.55); RED CELL DISTRIBUTION WIDTH 15.2 % (11.5-14.0); WHITE BLOOD COUNT 19.8 10^3/uL (4.0-10.5)
[2020-05-28 06:44] LABS: APPEARANCE,URINE CLOUDY; BILIRUBIN,URINE NEGATIVE (NEGATIVE); COLOR,URINE YELLOW; GLUCOSE, URINE >=500 mg/dL (NEGATIVE); KETONES,URINE NEGATIVE (NEGATIVE); LEUKOCYTE ESTERASE,URINE MODERATE (NEGATIVE); NITRITE,URINE NEGATIVE (NEGATIVE); PROTEIN,URINE 30 mg/dL (NEGATIVE); URINE SPECIFIC GRAVITY 1.016; UROBILINOGEN,URINE NEGATIVE mg/dL (<2.0)
[2020-05-28 06:51] LABS: BLOOD UREA NITROGEN 82 mg/dL (7-20); CALCIUM 8.2 mg/dL (8.4-10.2); GLUCOSE 245 mg/dL (75-110)
[2020-05-28 06:52] LABS: PLATELET COUNT 90 10^3/uL (150-450)
[2020-05-28 06:56] LABS: CARBON DIOXIDE 30 mmol/L (22-30); CHLORIDE 104 mmol/L (98-107)
[2020-05-28 06:59] LABS: ANION GAP 1 (5-19); POTASSIUM 6.3 mmol/L (3.6-5.0)
[2020-05-28] MEDS ORDERED: INSULIN REG, HUMAN 100 UNIT/ML 3 ML VIAL (PYX) SUBCUT ONE (08:00)
[2020-05-28] MEDS: BUDESONIDE NEB 0.25 MG/2 ML AMPUL NEB SCH ×2 (08:40→20:32)
[2020-05-28] MEDS ORDERED: FUROSEMIDE INJ/PF 40 MG/4 ML SDV IV ONE (08:47)
[2020-05-28] MEDS: NORMAL SALINE 250 ML with ARGATROBAN 250 MG IV PRN ×2 (08:56)
[2020-05-28] MEDS: AMINO ACIDS 5 %/DEXTROSE 20 % 1,000 ML IV PRN (10:08)
[2020-05-28] MEDS: LISINOPRIL 10 MG TABLET PO SCH (10:14)
[2020-05-28] MEDS: CITALOPRAM HYDROBROMIDE 20 MG TABLET PO SCH (10:14)
[2020-05-28] MEDS: PANTOPRAZOLE SODIUM 40 MG VIAL IV SCH (10:14)
[2020-05-28] MEDS: INSULIN GLARGINE,HUM.REC.ANLOG 1,000 UNIT/10 ML VIAL SUBCUT SCH ×2 (11:30→21:07)
--- NOTE | 2020-05-28 14:59 | PDOC CRITICAL CARE PROG REPORT ---
General Date:: 05/28/20 ICU Day:: 15 Hospital Day:: 18 Resuscitation Status: Full Code Events in the past 12 to 24 Hours:: 05/24: Remains on AVAPS 16/400/70%/8. He remains on dexamethasone 4 mg IV every 8 hours. WBC 19.7 (87% neutrophils, no bands). On empiric vancomycin for leukocytosis. The patient has responded well to use of morphine for agitation. Respiratory rate fluctuates from 14-20. Last chest x-ray was obtained on 05/17. 05/25: Tolerated transition from AVAPS to CPAP yesterday. Now on high flow nasal cannula with nonrebreather. SPO2 in the 90s. Respiratory rate 18-24. Flat affect. However, he admits that he is happy to have the CPAP mask off his face. Visible breakdown of the nasal bridge. He is on dexamethasone 3 mg IV every 8 hours. WBC 19.8 (82% neutrophils, no bands). Off antibiotics. Morphine was adjusted to 2 mg IV every 3 hours as needed yesterday. Chest x-ray demonstrated pneumomediastinum again. No pneumothorax. 05/26: Was able to spend more than 6 hours off CPAP yesterday (on nonrebreather plus high flow nasal cannula). Maintained SPO2 in the 90s. Did have a coughing and oxygen desaturation episode, which prompted restarting CPAP. The patient has maintained SPO2 98-100% all night with CPAP, for started at CPAP 8 then titrated down to CPAP 6. Becoming much more interactive. Labs today are notable for thrombocytopenia (platelets 61). Currently, on heparin infusion. Clinically, suspicious for heparin-induced thrombocytopenia. 05/27: The patient tolerated supplemental oxygen (without NIPPV) all night long. In fact, he is no longer needing a nonrebreather mask. He is on high flow nasal cannula at 50 LPM, FiO2 95%. Respiratory rate 20. SPO2 97%. He is awake. Continues to demonstrate flat affect. He is interactive. Nurse reports that he is unable to take p.o. medications at this time due to choking. Started argatroban infusion yesterday for suspected heparin-induced thrombocytopenia. 05/28: Tolerating high flow nasal cannula, 25 LPM. Pulled out his coud catheter last night. Decadron decreased to 1 mg IV every 8 hours in the interim. Still struggling with hyperglycemia. On Lantus 25 units twice daily with sliding scale. On argatroban infusion for heparin-induced thrombocytopenia. Heparin- induced PF4 antibody test pending. Platelets 90. Review of systems relevant to events:: Pulmonary: Acute hypoxemic respiratory failure, COVID-19 pneumonia Cardiovascular: Bradycardia arrhythmia Genitourinary: Gross hematuria (traumatic) Reason for ICU Addmission:: acute hypoxemic respiratory failure due to COVID-19 pneumonia - Medications: Medications reviewed and adjusted accordingly: Yes Physical Exam Vital Signs: Temp Pulse Resp BP Pulse Ox 97.6 F 54 L 11 L 141/70 H 88 L 05/28/20 08:00 05/28/20 08:00 05/28/20 08:00 05/28/20 08:00 05/28/20 08:00 Intake & Output 05/27/20 05/28/20 05/29/20 06:59 06:59 06:59 Intake Total 110 250 Output Total 1520 2760 Balance -1410 -2510 Weight 72 kg 71.7 kg Weight/Height Weight 71.7 kg Height 1.73 m General appearance: PRESENT: no acute distress, well-developed, well-nourished Head exam: PRESENT: atraumatic, normocephalic Mouth exam: PRESENT: moist, tongue midline Neck exam: ABSENT: carotid bruit, JVD, lymphadenopathy, thyromegaly Respiratory exam: PRESENT: crackles, decreased breath sounds Cardiovascular exam: PRESENT: RRR. ABSENT: diastolic murmur, rubs, systolic murmur Pulses: PRESENT: normal dorsalis pedis pul Gentrourinary exam: PRESENT: other - Blood at the urethral meatus Extremities exam: PRESENT: full ROM. ABSENT: calf tenderness, clubbing, pedal edema Neurological exam: PRESENT: alert, awake, oriented to person, oriented to place, oriented to time, oriented to situation, CN II-XII grossly intact. ABSENT: motor sensory deficit Psychiatric exam: PRESENT: depressed. ABSENT: agitated, anxious Skin exam: PRESENT: dry, intact, warm. ABSENT: cyanosis, rash Tubes/Lines: PRESENT: Central Line Laboratory/Radiographs Laboratory Results: 05/28/20 06:20 05/28/20 06:20 05/27/20 05/28/20 05/28/20 09:30 06:20 06:20 WBC 19.1 H 19.8 H RBC 4.35 4.53 Hgb 13.3 L 13.7 Hct 40.2 41.8 MCV 93 92 MCH 30.6 30.3 MCHC 33.0 32.8 RDW 14.8 H 15.2 H Plt Count 67 L 90 L Seg Neutrophils % Not Reportable Sodium 134.9 L Potassium 6.3 H* Chloride 104 Carbon Dioxide 30 Anion Gap 1 L BUN 82 H Creatinine 1.69 H Est GFR ( Amer) 48 L Glucose 245 H Calcium 8.2 L Phosphorus 5.0 H Magnesium 3.1 H Urine Color Urine Appearance Urine pH Ur Specific [place] Urine Protein Urine Glucose (UA) Urine Ketones Urine Blood Urine Nitrite Ur Leukocyte Esterase Urine WBC (Auto) Urine RBC (Auto) 05/28/20 06:20 WBC RBC Hgb Hct MCV MCH MCHC RDW Plt Count Seg Neutrophils % Sodium Potassium Chloride Carbon Dioxide Anion Gap BUN Creatinine Est GFR ( Amer) Glucose Calcium Phosphorus Magnesium Urine Color YELLOW Urine Appearance CLOUDY Urine pH 6.0 Ur Specific [place] 1.016 Urine Protein 30 H Urine Glucose (UA) >=500 H Urine Ketones NEGATIVE Urine Blood LARGE H Urine Nitrite NEGATIVE Ur Leukocyte Esterase MODERATE H Urine WBC (Auto) 37 Urine RBC (Auto) >182 05/10/20 05/10/20 05/11/20 17:46 17:46 02:34 Creatine Kinase 620 H CK-MB (CK-2) 4.33 Troponin I < 0.012 NT-Pro-B Natriuret Pep 05/14/20 05/15/20 05/15/20 12:18 04:45 04:45 Creatine Kinase CK-MB (CK-2) 0.79 Troponin I < 0.012 < 0.012 NT-Pro-B Natriuret Pep 05/17/20 05/24/20 04:31 03:40 Creatine Kinase CK-MB (CK-2) Troponin I NT-Pro-B Natriuret Pep 237 61 Impressions: Venous Doppler Study 05/13/20 00:00 IMPRESSION: 1. No sonographic evidence for lower extremity deep venous thrombosis in either leg. Chest X-Ray 05/27/20 05:00 IMPRESSION: No significant change. All labs, radiographs, diagnostic studies and EKGs were personally reviewed: Yes In addition, reports of radiographic and diagnostic studies were read: Yes Assessment and Plan - Diagnosis (1) Acute hypoxemic respiratory failure due to COVID-19 Is this a current diagnosis for this admission?: Yes Plan: Wean high flow nasal cannula as tolerated: Set FiO2 to maximum allowed (95%). Titrate flow rate ONLY to maintain SPO2 88+%. He has completed hydroxychloroquine/azithromycin. Continue argatroban infusion. CBC pending. Continue Decadron 1 mg IV every 8 hours. Continue morphine 1 mg IV every 4 hours as needed. Speech/swallow evaluation today. PT/OT. (2) Thrombocytopenia Is this a current diagnosis for this admission?: Yes Plan: Clinically suspicious for heparin-induced thrombocytopenia. Off famotidine. Improving on argatroban infusion. Heparin-induced PF4 antibodies test pending. Apparently, serotonin releasing assay is not available at this institution. (3) Chronic obstructive pulmonary disease Qualifiers: COPD type: unspecified COPD Qualified Code(s): J44.9 - Chronic obstructive pulmonary disease, unspecified Is this a current diagnosis for this admission?: Yes Plan: Continue albuterol/budesonide. 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 (8) Protein-calorie malnutrition, mild Is this a current diagnosis for this admission?: Yes (9) Hematuria Qualifiers: Hematuria type: unspecified type Qualified Code(s): R31.9 - Hematuria, unspecified Is this a current diagnosis for this admission?: Yes Plan: Replace coud catheter. May need continuous bladder irrigation. Critical Time Critical Time (minutes): 60 Level of Care: ICU -: 1. The care of a critical patient is a dynamic process. This note is a safety representative synopsis but static in nature. The timeframe for treatments given in order is not necessarily the actual time these treatments may have been done. 2. This patient requires critical care secondary to ongoing requirements for therapy not offered or safe outside the critical care environment. Transfer to a lower level of care will result in altered life or limb morbidity and mortality. 3. Multidisciplinary rounds completed. 4. ABCDE bundle addressed.
[2020-05-28] MEDS ORDERED: INSULIN GLARGINE,HUM.REC.ANLOG 1,000 UNIT/10 ML VIAL (PYX) SUBCUT ONE (20:59)
[2020-05-28] MEDS: MIRTAZAPINE 15 MG TABLET PO SCH (21:05)
[2020-05-28] MEDS: QUETIAPINE FUMARATE 100 MG TABLET PO SCH (21:05)
[2020-05-29] MEDS: ALBUTEROL SULFATE 0.083% NEB 2.5 MG/3 ML AMPUL NEB SCH ×7 (01:58→23:41)
[2020-05-29] MEDS: DEXAMETHASONE SOD PHOS INJ 10 MG/1 ML VIAL IV SCH ×3 (02:20→19:55)
[2020-05-29 03:46] LABS: HEMATOCRIT 40.4 % (37.9-51.0); HEMOGLOBIN 13.5 g/dL (13.5-17.0); MEAN CORPUSCULAR HEMOGLOBIN 30.7 pg (27.0-33.4); MEAN CORPUSCULAR HGB CONC 33.3 g/dL (32.0-36.0); MEAN CORPUSCULAR VOLUME 92 fl (80-97); RED BLOOD COUNT 4.39 10^6/uL (4.35-5.55); RED CELL DISTRIBUTION WIDTH 14.8 % (11.5-14.0); WHITE BLOOD COUNT 19.6 10^3/uL (4.0-10.5)
[2020-05-29 03:52] LABS: PLATELET COUNT 89 10^3/uL (150-450)
[2020-05-29 04:05] LABS: ALBUMIN 2.5 g/dL (3.5-5.0); ALKALINE PHOSPHATASE 151 U/L (38-126); ANION GAP 5 (5-19); ASPARTATE AMINO TRANSFERASE 35 U/L (17-59); BILIRUBIN,DIRECT 0.1 mg/dL (0.0-0.4); BLOOD UREA NITROGEN 80 mg/dL (7-20); CALCIUM 8.2 mg/dL (8.4-10.2); CARBON DIOXIDE 28 mmol/L (22-30); CHLORIDE 101 mmol/L (98-107); GLUCOSE 320 mg/dL (75-110); PHOSPHORUS 3.6 mg/dL (2.5-4.5); POTASSIUM 5.5 mmol/L (3.6-5.0); TOTAL PROTEIN 5.4 g/dL (6.3-8.2)
[2020-05-29 04:18] LABS: ABSOLUTE LYMPHOCYTES# (MANUAL) 0.6 10^3/uL (0.5-4.7); ABSOLUTE MONOCYTES # (MANUAL) 1.2 10^3/uL (0.1-1.4); BAND NEUTROPHILS % (MANUAL) 6 % (3-5); BASOPHILS % (MANUAL) 0 % (0-2); EOSINOPHILS % (MANUAL) 0 % (0-6); LYMPHOCYTES % (MANUAL) 3 % (13-45); MONOCYTES % (MANUAL) 6 % (3-13); POLYCHROMASIA 1+; SEGMENTED NEUTROPHILS % (MAN) 85 % (42-78); TOTAL CELLS COUNTED 100
[2020-05-29 04:19] LABS: ANISOCYTOSIS 1+; PLATELET COMMENT DECREASED
[2020-05-29] MEDS: INSULIN REG, HUMAN 100 UNIT/ML 3 ML VIAL (PYX) SUBCUT SCH ×4 (05:12→23:12)
[2020-05-29] MEDS: MORPHINE SULFATE 10 MG/ML INJ IV PRN ×3 (06:28→19:55)
[2020-05-29] MEDS: AMINO ACIDS 5 %/DEXTROSE 20 % 1,000 ML IV PRN (07:01)
--- NOTE | 2020-05-29 08:26 | RADIOLOGY REPORT (SQ) ---
EXAM DESCRIPTION: CHEST SINGLE VIEW IMAGES COMPLETED DATE/TIME: 05/29/2020 5:22 am REASON FOR STUDY: COVID pneumonia COMPARISON: 05/27/2020 EXAM PARAMETERS: NUMBER OF VIEWS: One view. TECHNIQUE: Single frontal radiographic view of the chest acquired. RADIATION DOSE: NA LIMITATIONS: None. FINDINGS: LUNGS AND PLEURA: Parenchymal opacities at the lung bases. Stable appearance without impr ovement. No pneumothorax. MEDIASTINUM AND HILAR STRUCTURES: No masses. Contour normal. HEART AND VASCULAR STRUCTURES: Heart normal in size. Normal vasculature. BONES: No acute findings. HARDWARE: Venous access catheter unchanged. OTHER: No other significant finding. IMPRESSION: Bibasilar pneumonitis without improvement peer TECHNICAL DOCUMENTATION: JOB ID: [id number] 2010 [employer]- All Rights Reserved Reading location - IP/workstation name: [email or web address]
[2020-05-29] MEDS: BUDESONIDE NEB 0.25 MG/2 ML AMPUL NEB SCH ×2 (08:29→20:14)
[2020-05-29] MEDS: PANTOPRAZOLE SODIUM 40 MG VIAL IV SCH (10:09)
[2020-05-29] MEDS: LISINOPRIL 10 MG TABLET PO SCH (10:09)
[2020-05-29] MEDS: CITALOPRAM HYDROBROMIDE 20 MG TABLET PO SCH (10:09)
[2020-05-29] MEDS: INSULIN GLARGINE,HUM.REC.ANLOG 1,000 UNIT/10 ML VIAL SUBCUT SCH ×2 (10:09→21:44)
[2020-05-29] MEDS ORDERED: INSULIN GLARGINE,HUM.REC.ANLOG 1,000 UNIT/10 ML VIAL (PYX) SUBCUT ONE ×2 (21:01→21:53)
[2020-05-29] MEDS: MIRTAZAPINE 15 MG TABLET PO SCH (21:44)
[2020-05-29] MEDS: QUETIAPINE FUMARATE 100 MG TABLET PO SCH (21:44)
[2020-05-30] MEDS: AMINO ACIDS 5 %/DEXTROSE 20 % 1,000 ML IV PRN (00:30)
[2020-05-30] MEDS ORDERED: NORMAL SALINE 500 ML IV ONE ×2 (02:08→03:09)
[2020-05-30] MEDS: NORMAL SALINE 250 ML with ARGATROBAN 250 MG IV PRN ×4 (02:51→14:45)
[2020-05-30] MEDS: ALBUTEROL SULFATE 0.083% NEB 2.5 MG/3 ML AMPUL NEB SCH ×6 (03:46→23:56)
[2020-05-30] MEDS ORDERED: NOREPINEPHRINE BITARTRATE INJ/PF 4 MG/4 ML SDV IV ONE (04:10)
[2020-05-30 04:12] LABS: HEMATOCRIT 35.9 % (37.9-51.0); HEMOGLOBIN 11.8 g/dL (13.5-17.0); MEAN CORPUSCULAR HEMOGLOBIN 30.3 pg (27.0-33.4); MEAN CORPUSCULAR HGB CONC 32.9 g/dL (32.0-36.0); MEAN CORPUSCULAR VOLUME 92 fl (80-97); RED CELL DISTRIBUTION WIDTH 14.5 % (11.5-14.0); WHITE BLOOD COUNT 14.4 10^3/uL (4.0-10.5)
[2020-05-30 04:15] LABS: BLOOD UREA NITROGEN 81 mg/dL (7-20); CALCIUM 7.5 mg/dL (8.4-10.2); CARBON DIOXIDE 23 mmol/L (22-30); CHLORIDE 106 mmol/L (98-107); GLUCOSE 294 mg/dL (75-110)
[2020-05-30 04:16] LABS: PLATELET COUNT 97 10^3/uL (150-450)
[2020-05-30 04:19] LABS: ABSOLUTE LYMPHOCYTES# (MANUAL) 0.3 10^3/uL (0.5-4.7); ABSOLUTE MONOCYTES # (MANUAL) 0.3 10^3/uL (0.1-1.4); ANION GAP 4 (5-19); ANISOCYTOSIS 1+; BAND NEUTROPHILS % (MANUAL) 1 % (3-5); BASOPHILS % (MANUAL) 0 % (0-2); EOSINOPHILS % (MANUAL) 0 % (0-6); LYMPHOCYTES % (MANUAL) 2 % (13-45); MONOCYTES % (MANUAL) 2 % (3-13); PLATELET COMMENT DECREASED; POLYCHROMASIA 1+; SEGMENTED NEUTROPHILS % (MAN) 95 % (42-78); TOTAL CELLS COUNTED 100
[2020-05-30] MEDS: DEXTROSE 5%-WATER 250 ML with NOREPINEPHRINE BITARTRATE 4 MG IV PRN ×4 (04:30→12:00)
[2020-05-30] MEDS: INSULIN REG, HUMAN 100 UNIT/ML 3 ML VIAL (PYX) SUBCUT SCH ×3 (06:18→17:54)
[2020-05-30] MEDS: BUDESONIDE NEB 0.25 MG/2 ML AMPUL NEB SCH ×2 (08:24→19:42)
--- NOTE | 2020-05-30 08:55 | PDOC CRITICAL CARE PROG REPORT ---
General Date:: 05/29/20 ICU Day:: 16 Hospital Day:: 19 Resuscitation Status: Full Code Events in the past 12 to 24 Hours:: 05/24: Remains on AVAPS 16/400/70%/8. He remains on dexamethasone 4 mg IV every 8 hours. WBC 19.7 (87% neutrophils, no bands). On empiric vancomycin for leukocytosis. The patient has responded well to use of morphine for agitation. Respiratory rate fluctuates from 14-20. Last chest x-ray was obtained on 05/17. 05/25: Tolerated transition from AVAPS to CPAP yesterday. Now on high flow nasal cannula with nonrebreather. SPO2 in the 90s. Respiratory rate 18-24. Flat affect. However, he admits that he is happy to have the CPAP mask off his face. Visible breakdown of the nasal bridge. He is on dexamethasone 3 mg IV every 8 hours. WBC 19.8 (82% neutrophils, no bands). Off antibiotics. Morphine was adjusted to 2 mg IV every 3 hours as needed yesterday. Chest x-ray demonstrated pneumomediastinum again. No pneumothorax. 05/26: Was able to spend more than 6 hours off CPAP yesterday (on nonrebreather plus high flow nasal cannula). Maintained SPO2 in the 90s. Did have a coughing and oxygen desaturation episode, which prompted restarting CPAP. The patient has maintained SPO2 98-100% all night with CPAP, for started at CPAP 8 then titrated down to CPAP 6. Becoming much more interactive. Labs today are notable for thrombocytopenia (platelets 61). Currently, on heparin infusion. Clinically, suspicious for heparin-induced thrombocytopenia. 05/27: The patient tolerated supplemental oxygen (without NIPPV) all night long. In fact, he is no longer needing a nonrebreather mask. He is on high flow nasal cannula at 50 LPM, FiO2 95%. Respiratory rate 20. SPO2 97%. He is awake. Continues to demonstrate flat affect. He is interactive. Nurse reports that he is unable to take p.o. medications at this time due to choking. Started argatroban infusion yesterday for suspected heparin-induced thrombocytopenia. 05/28: Tolerating high flow nasal cannula, 25 LPM. Pulled out his coud catheter last night. Decadron decreased to 1 mg IV every 8 hours in the interim. Still struggling with hyperglycemia. On Lantus 25 units twice daily with sliding scale. On argatroban infusion for heparin-induced thrombocytopenia. Heparin- induced PF4 antibody test pending. Platelets 90. 05/29: Had 1 L bladder irrigation yesterday but showed no evidence of ongoing bleeding after pulling out his coud catheter. The coud catheter was replaced and remains intact. Tolerating high flow nasal cannula, 20 LPM, FiO2 100%. Decadron 1 mg IV every 12 hours today. Still struggling with hyperglycemia. On argatroban infusion for presumed heparin-induced thrombocytopenia. Heparin- induced PF4 antibody test pending. Platelets 89. Overall mood also seems to be steadily improving. Had speech/swallow evaluation yesterday. Has been taking ice chips and demonstrates improved swallowing function. Review of systems relevant to events:: Pulmonary: Acute hypoxemic respiratory failure, COVID-19 pneumonia Cardiovascular: Bradycardia arrhythmia Genitourinary: Gross hematuria (traumatic) Reason for ICU Addmission:: acute hypoxemic respiratory failure due to COVID-19 pneumonia - Medications: Medications reviewed and adjusted accordingly: Yes Physical Exam Vital Signs: Temp Pulse Resp BP Pulse Ox 98.2 F 65 20 131/70 H 95 05/28/20 17:54 05/29/20 08:30 05/29/20 10:00 05/29/20 09:55 05/29/20 10:00 Intake & Output 05/28/20 05/29/20 05/30/20 06:59 06:59 06:59 Intake Total 250 235 Output Total 2760 3185 325 Balance -3660 -1590 -325 Weight 71.7 kg 72 kg Weight/Height Weight 72 kg Height 1.73 m General appearance: PRESENT: no acute distress, well-developed, well-nourished Head exam: PRESENT: atraumatic, normocephalic Eye exam: PRESENT: conjunctiva pink, EOMI, PERRLA. ABSENT: scleral icterus Mouth exam: PRESENT: moist, tongue midline Neck exam: ABSENT: carotid bruit, JVD, lymphadenopathy, thyromegaly Respiratory exam: PRESENT: crackles, decreased breath sounds - But improving. ABSENT: rales, rhonchi, wheezes Cardiovascular exam: PRESENT: RRR. ABSENT: diastolic murmur, rubs, systolic murmur Pulses: PRESENT: normal dorsalis pedis pul GI/Abdominal exam: PRESENT: normal bowel sounds, soft. ABSENT: distended, guarding, mass, organolmegaly, rebound, tenderness Gentrourinary exam: PRESENT: indwelling catheter Extremities exam: PRESENT: full ROM, pedal edema. ABSENT: calf tenderness, clubbing Musculoskeletal exam: PRESENT: normal inspection. ABSENT: deformity Neurological exam: PRESENT: alert, awake, oriented to person, oriented to place, oriented to time, oriented to situation, CN II-XII grossly intact. ABSENT: motor sensory deficit Psychiatric exam: PRESENT: appropriate affect, normal mood. ABSENT: agitated, anxious Tubes/Lines: PRESENT: Central Line Laboratory/Radiographs Laboratory Results: 05/29/20 03:15 05/29/20 03:15 05/29/20 05/29/20 03:15 03:15 WBC 19.6 H RBC 4.39 Hgb 13.5 Hct 40.4 MCV 92 MCH 30.7 MCHC 33.3 RDW 14.8 H Plt Count 89 L Seg Neutrophils % Not Reportable Sodium 133.9 L Potassium 5.5 H Chloride 101 Carbon Dioxide 28 Anion Gap 5 BUN 80 H Creatinine 1.65 H Est GFR ( Amer) 49 L Glucose 320 H Calcium 8.2 L Phosphorus 3.6 Magnesium 2.5 H Total Bilirubin 1.0 AST 35 Alkaline Phosphatase 151 H Total Protein 5.4 L Albumin 2.5 L 05/10/20 05/10/20 05/11/20 17:46 17:46 02:34 Creatine Kinase 620 H CK-MB (CK-2) 4.33 Troponin I < 0.012 NT-Pro-B Natriuret Pep 05/14/20 05/15/20 05/15/20 12:18 04:45 04:45 Creatine Kinase CK-MB (CK-2) 0.79 Troponin I < 0.012 < 0.012 NT-Pro-B Natriuret Pep 05/17/20 05/24/20 04:31 03:40 Creatine Kinase CK-MB (CK-2) Troponin I NT-Pro-B Natriuret Pep 237 61 Impressions: Venous Doppler Study 05/13/20 00:00 IMPRESSION: 1. No sonographic evidence for lower extremity deep venous thrombosis in either leg. Chest X-Ray 05/29/20 05:00 IMPRESSION: Bibasilar pneumonitis without improvement peer All labs, radiographs, diagnostic studies and EKGs were personally reviewed: Yes In addition, reports of radiographic and diagnostic studies were read: Yes Assessment and Plan - Diagnosis (1) Acute hypoxemic respiratory failure due to COVID-19 Is this a current diagnosis for this admission?: Yes Plan: Wean high flow nasal cannula as tolerated: Set FiO2 to maximum allowed (95%). Titrate flow rate ONLY to maintain SPO2 88+%. He has completed hydroxychloroquine/azithromycin. Continue argatroban infusion. CBC pending. Decadron 1 mg IV every 12 hours today. Continue morphine 1 mg IV every 4 hours as needed. PT/OT. (2) Thrombocytopenia Is this a current diagnosis for this admission?: Yes Plan: Clinically suspicious for heparin-induced thrombocytopenia. Off famotidine. Weightless 89 today. On argatroban infusion. Heparin-induced PF4 antibodies test pending. Apparently, serotonin releasing assay is not available at this institution. 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 Increase Lantus to 25 units subcutaneously twice twice daily Currently off insulin infusion. (6) Normocytic anemia Is this a current diagnosis for this admission?: Yes (7) Hyperkalemia Is this a current diagnosis for this admission?: Yes Plan: Adjustments to TPN. (8) Protein-calorie malnutrition, mild Is this a current diagnosis for this admission?: Yes (9) Hematuria Qualifiers: Hematuria type: unspecified type Qualified Code(s): R31.9 - Hematuria, unspecified Is this a current diagnosis for this admission?: Yes Plan: Improving. Critical Time Critical Time (minutes): 60 Level of Care: ICU -: 1. The care of a critical patient is a dynamic process. This note is a rep resentative synopsis but static in nature. The timeframe for treatments given in order is not necessarily the actual time these treatments may have been done. 2. This patient requires critical care secondary to ongoing requirements for therapy not offered or safe outside the critical care environment. Transfer to a lower level of care will result in altered life or limb morbidity and mortality. 3. Multidisciplinary rounds completed. 4. ABCDE bundle addressed.
[2020-05-30] MEDS: DEXAMETHASONE SOD PHOS INJ 10 MG/1 ML VIAL IV SCH ×2 (10:28→21:20)
[2020-05-30] MEDS: PANTOPRAZOLE SODIUM 40 MG VIAL IV SCH (10:28)
[2020-05-30] MEDS ORDERED: MORPHINE SULFATE 10 MG/ML INJ IV ONE ×3 (10:30→20:15)
[2020-05-30] MEDS: INSULIN GLARGINE,HUM.REC.ANLOG 1,000 UNIT/10 ML VIAL SUBCUT SCH ×2 (11:11→21:21)
[2020-05-30] MEDS: FAMOTIDINE INJ/PF 20 MG/2 ML SDV IV SCH ×2 (13:41→21:21)
[2020-05-30] MEDS ORDERED: AMINO ACIDS 5 %/DEXTROSE 20 % 1,000 ML IV PRN (15:22)
--- NOTE | 2020-05-30 18:43 | PDOC CRITICAL CARE PROG REPORT ---
General Date:: 05/30/20 ICU Day:: 17 Hospital Day:: 20 Resuscitation Status: Full Code Events in the past 12 to 24 Hours:: 05/24: Remains on AVAPS 16/400/70%/8. He remains on dexamethasone 4 mg IV every 8 hours. WBC 19.7 (87% neutrophils, no bands). On empiric vancomycin for leukocytosis. The patient has responded well to use of morphine for agitation. Respiratory rate fluctuates from 14-20. Last chest x-ray was obtained on 05/17. 05/25: Tolerated transition from AVAPS to CPAP yesterday. Now on high flow nasal cannula with nonrebreather. SPO2 in the 90s. Respiratory rate 18-24. Flat affect. However, he admits that he is happy to have the CPAP mask off his face. Visible breakdown of the nasal bridge. He is on dexamethasone 3 mg IV every 8 hours. WBC 19.8 (82% neutrophils, no bands). Off antibiotics. Morphine was adjusted to 2 mg IV every 3 hours as needed yesterday. Chest x-ray demonstrated pneumomediastinum again. No pneumothorax. 05/26: Was able to spend more than 6 hours off CPAP yesterday (on nonrebreather plus high flow nasal cannula). Maintained SPO2 in the 90s. Did have a coughing and oxygen desaturation episode, which prompted restarting CPAP. The patient has maintained SPO2 98-100% all night with CPAP, for started at CPAP 8 then titrated down to CPAP 6. Becoming much more interactive. Labs today are notable for thrombocytopenia (platelets 61). Currently, on heparin infusion. Clinically, suspicious for heparin-induced thrombocytopenia. 05/27: The patient tolerated supplemental oxygen (without NIPPV) all night long. In fact, he is no longer needing a nonrebreather mask. He is on high flow nasal cannula at 50 LPM, FiO2 95%. Respiratory rate 20. SPO2 97%. He is awake. Continues to demonstrate flat affect. He is interactive. Nurse reports that he is unable to take p.o. medications at this time due to choking. Started argatroban infusion yesterday for suspected heparin-induced thrombocytopenia. 05/28: Tolerating high flow nasal cannula, 25 LPM. Pulled out his coud catheter last night. Decadron decreased to 1 mg IV every 8 hours in the interim. Still struggling with hyperglycemia. On Lantus 25 units twice daily with sliding scale. On argatroban infusion for heparin-induced thrombocytopenia. Heparin- induced PF4 antibody test pending. Platelets 90. 05/29: Had 1 L bladder irrigation yesterday but showed no evidence of ongoing bleeding after pulling out his coud catheter. The coud catheter was replaced and remains intact. Tolerating high flow nasal cannula, 20 LPM, FiO2 100%. Decadron 1 mg IV every 12 hours today. Still struggling with hyperglycemia. On argatroban infusion for presumed heparin-induced thrombocytopenia. Heparin- induced PF4 antibody test pending. Platelets 89. Overall mood also seems to be steadily improving. Had speech/swallow evaluation yesterday. Has been taking ice chips and demonstrates improved swallowing function. 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 Now on pressors. Mentating well. Mood is improving. Tolerating high flow nasal cannula. Flow rate was weaned down to 15 LPM yesterday; however, he is back on 25 LPM. SPO2 99%. Still on Decadron 1 mg IV every 12 hours. On argatroban infusion for presumed heparin-induced thrombocytopenia. Heparin-induced platelet antibody test pending. Platelets 97. Review of systems relevant to events:: Pulmonary: Acute hypoxemic respiratory failure, COVID-19 pneumonia Cardiovascular: Bradycardia arrhythmia Genitourinary: Gross hematuria (traumatic) Reason for ICU Addmission:: acute hypoxemic respiratory failure due to COVID-19 pneumonia - Medications: Medications reviewed and adjusted accordingly: Yes Vasopressors:: Norepinephrine Physical Exam Vital Signs: Temp Pulse Resp BP Pulse Ox 97.8 F 66 24 H 119/57 L 93 05/30/20 04:00 05/30/20 08:27 05/30/20 08:27 05/30/20 05:57 05/30/20 08:27 Intake & Output 05/29/20 05/30/20 05/31/20 06:59 06:59 06:59 Intake Total 235 1312 Output Total 2465 1135 Balance -2230 177 Weight 72 kg 71.6 kg Weight/Height Weight 71.6 kg Height 1.73 m General appearance: PRESENT: no acute distress, well-developed, well-nourished Head exam: PRESENT: atraumatic, normocephalic Mouth exam: PRESENT: moist, tongue midline Neck exam: ABSENT: carotid bruit, JVD, lymphadenopathy, thyromegaly Respiratory exam: PRESENT: crackles. ABSENT: rhonchi, wheezes Cardiovascular exam: PRESENT: RRR. ABSENT: diastolic murmur, rubs, systolic murmur Pulses: PRESENT: normal dorsalis pedis pul GI/Abdominal exam: PRESENT: normal bowel sounds, soft. ABSENT: distended, guarding, mass, organolmegaly, rebound, tenderness Extremities exam: PRESENT: full ROM, pedal edema. ABSENT: calf tenderness, clubbing Musculoskeletal exam: PRESENT: normal inspection. ABSENT: deformity Neurological exam: PRESENT: alert, awake, oriented to person, oriented to place, oriented to time, oriented to situation, CN II-XII grossly intact. ABSENT: motor sensory deficit Psychiatric exam: PRESENT: appropriate affect. ABSENT: agitated, anxious Skin exam: PRESENT: dry, intact, warm. ABSENT: cyanosis, rash Tubes/Lines: PRESENT: Central Line - Right IJ Laboratory/Radiographs Laboratory Results: 05/30/20 03:30 05/30/20 03:30 05/30/20 05/30/20 05/30/20 03:30 03:30 03:30 WBC 14.4 H RBC 3.90 L Hgb 11.8 L Hct 35.9 L MCV 92 MCH 30.3 MCHC 32.9 RDW 14.5 H Plt Count 97 L Seg Neutrophils % Not Reportable Sodium 133.1 L Potassium 5.0 Chloride 106 Carbon Dioxide 23 Anion Gap 4 L BUN 81 H Creatinine 1.77 H Est GFR ( Amer) 45 L Glucose 294 H Lactic Acid 0.9 Calcium 7.5 L Phosphorus Magnesium 2.1 05/30/20 03:30 WBC RBC Hgb Hct MCV MCH MCHC RDW Plt Count Seg Neutrophils % Sodium Potassium Chloride Carbon Dioxide Anion Gap BUN Creatinine Est GFR ( Amer) Glucose Lactic Acid Calcium Phosphorus 3.5 Magnesium 05/10/20 05/10/20 05/11/20 17:46 17:46 02:34 Creatine Kinase 620 H CK-MB (CK-2) 4.33 Troponin I < 0.012 NT-Pro-B Natriuret Pep 05/14/20 05/15/20 05/15/20 12:18 04:45 04:45 Creatine Kinase CK-MB (CK-2) 0.79 Troponin I < 0.012 < 0.012 NT-Pro-B Natriuret Pep 05/17/20 05/24/20 04:31 03:40 Creatine Kinase CK-MB (CK-2) Troponin I NT-Pro-B Natriuret Pep 237 61 Impressions: Venous Doppler Study 05/13/20 00:00 IMPRESSION: 1. No sonographic evidence for lower extremity deep venous thrombosis in either leg. Chest X-Ray 05/29/20 05:00 IMPRESSION: Bibasilar pneumonitis without improvement peer All labs, radiographs, diagnostic studies and EKGs were personally reviewed: Yes In addition, reports of radiographic and diagnostic studies were read: Yes Assessment and Plan - Diagnosis (1) Hypotension due to drugs Is this a current diagnosis for this admission?: Yes Plan: Stop morphine. Wean norepinephrine, as tolerated. (2) Acute hypoxemic respiratory failure due to COVID-19 Is this a current diagnosis for this admission?: Yes Plan: Wean high flow nasal cannula as tolerated: Set FiO2 to maximum allowed (95%). Titrate flow rate ONLY to maintain SPO2 88+%. He has completed hydroxychloroquine/azithromycin. Continue argatroban infusion. CBC pending. Decadron 1 mg IV every 12 hours today. PT/OT. (3) Heparin induced thrombocytopenia Is this a current diagnosis for this admission?: Yes Plan: Confirmed by heparin-induced anti-PF4 antibody test. Continue argatroban infusion. (4) Chronic obstructive pulmonary disease Qualifiers: COPD type: unspecified COPD Qualified Code(s): J44.9 - Chronic obstructive pulmonary disease, unspecified Is this a current diagnosis for this admission?: Yes Plan: Continue albuterol/budesonide. (5) Depression Qualifiers: Depression Type: unspecified Qualified Code(s): F32.9 - Major depressive disorder, single episode, unspecified Is this a current diagnosis for this admission?: Yes Plan: Home medications include: Celexa 40 mg p.o. daily, gabapentin 600 mg p.o. every 12 hours, Seroquel 50 mg p.o. nightly, Remeron 15 mg p.o. nightly. 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 Continue Lantus 25 units subcutaneously twice twice daily along with sliding scale insulin. Currently off insulin infusion. (7) Normocytic anemia Is this a current diagnosis for this admission?: Yes (8) Hyperkalemia Is this a current diagnosis for this admission?: Yes (9) Protein-calorie malnutrition, mild Is this a current diagnosis for this admission?: Yes Plan: Prealbumin improving. Continue TPN. Adjustments for hyperkalemia and hypermagnesemia discussed with pharmacy. (10) Hematuria Qualifiers: Hematuria type: unspecified type Qualified Code(s): R31.9 - Hematuria, unspecified Is this a current diagnosis for this admission?: Yes Critical Time Critical Time (minutes): 60 Level of Care: ICU -: 1. The care of a critical patient is a dynamic process. This note is a agricultural sales representative synopsis but static in nature. The timeframe for treatments given in order is not necessarily the actual time these treatments may have been done. 2. This patient requires critical care secondary to ongoing requirements for therapy not offered or safe outside the critical care environment. Transfer to a lower level of care will result in altered life or limb morbidity and mortality. 3. Multidisciplinary rounds completed. 4. ABCDE bundle addressed.
[2020-05-31] MEDS: INSULIN REG, HUMAN 100 UNIT/ML 3 ML VIAL (PYX) SUBCUT SCH ×4 (00:08→19:08)
[2020-05-31] MEDS: ALBUTEROL SULFATE 0.083% NEB 2.5 MG/3 ML AMPUL NEB SCH ×6 (04:34→23:45)
[2020-05-31 05:09] LABS: HEMATOCRIT 39.1 % (37.9-51.0); HEMOGLOBIN 12.9 g/dL (13.5-17.0); MEAN CORPUSCULAR HEMOGLOBIN 30.5 pg (27.0-33.4); MEAN CORPUSCULAR HGB CONC 33.1 g/dL (32.0-36.0); MEAN CORPUSCULAR VOLUME 92 fl (80-97); PLATELET COUNT 138 10^3/uL (150-450); RED BLOOD COUNT 4.24 10^6/uL (4.35-5.55); RED CELL DISTRIBUTION WIDTH 14.8 % (11.5-14.0); WHITE BLOOD COUNT 18.9 10^3/uL (4.0-10.5)
[2020-05-31 05:12] LABS: APPEARANCE,URINE CLOUDY; BILIRUBIN,URINE NEGATIVE (NEGATIVE); COLOR,URINE YELLOW; GLUCOSE, URINE >=500 mg/dL (NEGATIVE); KETONES,URINE NEGATIVE (NEGATIVE); LEUKOCYTE ESTERASE,URINE LARGE (NEGATIVE); NITRITE,URINE POSITIVE (NEGATIVE); PROTEIN,URINE NEGATIVE (NEGATIVE); UROBILINOGEN,URINE NEGATIVE mg/dL (<2.0)
[2020-05-31 05:21] LABS: INTERNATIONAL RATION (INR) 3.41; PROTHROMBIN TIME 35.2 SEC (11.4-15.4)
[2020-05-31 05:26] LABS: ABSOLUTE LYMPHOCYTES# (MANUAL) 0.6 10^3/uL (0.5-4.7); ABSOLUTE MONOCYTES # (MANUAL) 0.8 10^3/uL (0.1-1.4); BAND NEUTROPHILS % (MANUAL) 3 % (3-5); BASOPHILS % (MANUAL) 0 % (0-2); EOSINOPHILS % (MANUAL) 0 % (0-6); LYMPHOCYTES % (MANUAL) 3 % (13-45); MONOCYTES % (MANUAL) 4 % (3-13); SEGMENTED NEUTROPHILS % (MAN) 90 % (42-78); TOTAL CELLS COUNTED 100
[2020-05-31 05:27] LABS: PLATELET COMMENT ADEQUATE; RBC MORPHOLOGY COMMENT NORMO-CYTIC/CHROMIC
[2020-05-31 05:30] LABS: BLOOD UREA NITROGEN 68 mg/dL (7-20); CALCIUM 8.3 mg/dL (8.4-10.2); GLUCOSE 310 mg/dL (75-110); POTASSIUM 4.6 mmol/L (3.6-5.0)
[2020-05-31 05:36] LABS: CARBON DIOXIDE 25 mmol/L (22-30); CHLORIDE 107 mmol/L (98-107)
[2020-05-31 05:48] LABS: ANION GAP 4 (5-19)
[2020-05-31] MEDS ORDERED: SODIUM BICARBONATE 8.4% INJ 50 MEQ/50 ML DISP.SYRIN ONE ×5 (08:00→22:20)
[2020-05-31] MEDS ORDERED: EPINEPHRINE INJ 1 MG/10 ML DISP.SYRIN ONE (08:00)
--- NOTE | 2020-05-31 08:17 | RADIOLOGY REPORT (SQ) ---
EXAM DESCRIPTION: CHEST SINGLE VIEW IMAGES COMPLETED DATE/TIME: 05/31/2020 5:45 am REASON FOR STUDY: COVID-19 pneumonia COMPARISON: 05/29/2020 NUMBER OF VIEWS: One view. TECHNIQUE: Single frontal radiographic image of the chest acquired. LIMITATIONS: None. FINDINGS: LUNGS AND PLEURA: Stable appearance. Right-sided central line remains in place. MEDIASTINUM AND HILAR STRUCTURES: Stable heart size and mediastinal structures. HEART AND VASCULAR STRUCTURES: Stable appearance. BONES: No acute findings. HARDWARE: None in the chest. OTHER: No other significant finding. IMPRESSION: STABLE APPEARANCE OF THE CHEST. TECHNICAL DOCUMENTATION: JOB ID: [id number] 2010 [employer]- All Rights Reserved Reading location - IP/workstation name: [email or web address]
[2020-05-31] MEDS: BUDESONIDE NEB 0.25 MG/2 ML AMPUL NEB SCH ×2 (09:00→20:37)
[2020-05-31] MEDS ORDERED: MORPHINE SULFATE 10 MG/ML INJ ONE (10:50)
[2020-05-31] MEDS ORDERED: ETOMIDATE INJ/PF 20 MG/10 ML SDV IV ONE (12:06)
[2020-05-31] MEDS: DEXTROSE 5%-WATER 250 ML with NOREPINEPHRINE BITARTRATE 4 MG IV PRN ×4 (12:15→14:15)
[2020-05-31] MEDS ORDERED: PHENYLEPHRINE HCL INJ/PF 10 MG/1 ML SDV ONE ×2 (12:20→22:05)
[2020-05-31] MEDS ORDERED: DEXMEDETOMIDINE IN 0.9 % NACL 400 MCG/100 ML RTUPB IV ONE (12:25)
[2020-05-31] MEDS ORDERED: HYDROCORTISONE SOD SUCCINATE INJ/PF 100 MG/2 ML SDV ONE (12:38)
[2020-05-31] MEDS: DEXMEDETOMIDINE IN 0.9 % NACL 400 MCG/100 ML RTUPB IV PRN (12:42)
[2020-05-31 13:02] LABS: ARTERIAL BLOOD BASE EXCESS -14.3 mmol/L; ARTERIAL BLOOD FIO2 100%; ARTERIAL BLOOD H2CO3 1.35 mmol/L (1.05-1.35); ARTERIAL BLOOD HCO3 14.4 mmol/L (20-24); ARTERIAL BLOOD O2 SATURATION 85.7 % (94-98); ARTERIAL BLOOD PO2 65.5 mmHg (80-100); ARTERIAL BLOOD TOTAL CO2 15.7 mmol/L (23-27)
[2020-05-31 13:03] LABS: ARTERIAL BLOOD PH 7.12 (7.35-7.45)
[2020-05-31] MEDS ORDERED: PHARMACY COMMUNICATION ORDER MC NR (13:15)
[2020-05-31] MEDS ORDERED: DEXTROSE 5%-WATER 250 ML with VASOPRESSIN 100 UNIT IV PRN ×2 (13:19)
[2020-05-31] MEDS ORDERED: VASOPRESSIN INJ 20 UNIT/1 ML VIAL ONE (13:22)
--- NOTE | 2020-05-31 13:22 | PDOC CRITICAL CARE PROG REPORT ---
General Date:: 05/31/20 Ventilator Day:: 1 Resuscitation Status: Full Code Events in the past 12 to 24 Hours:: Patient became acutely obtunded with agonal respirations. Intubated emergantly Review of systems relevant to events:: Pulmonary, neurological. Reason for ICU Addmission:: Now intubated. COVID-19. - Medications: Medications reviewed and adjusted accordingly: Yes Vasopressors:: Norepinephrine. Sedation:: Precedex. Physical Exam Vital Signs: Temp Pulse Resp BP Pulse Ox 98.3 F 106 H 40 H 166/74 H 100 05/31/20 10:00 05/31/20 11:28 05/31/20 11:28 05/31/20 10:13 05/31/20 11:28 Intake & Output 05/30/20 05/31/20 06/01/20 06:59 06:59 06:59 Intake Total 1312 296 Output Total 1135 2975 500 Balance 177 -2679 -500 Weight 71.6 kg 70.6 kg Weight/Height Weight 70.6 kg Height 5 ft 8 in General appearance: PRESENT: mild distress Head exam: PRESENT: atraumatic, normocephalic Eye exam: PRESENT: conjunctiva pink, EOMI, PERRLA. ABSENT: scleral icterus Ear exam: PRESENT: normal external ear exam Mouth exam: PRESENT: moist, tongue midline Respiratory exam: PRESENT: clear to auscultation shanna, crackles - Coarse. ABSENT: rales, rhonchi, wheezes Cardiovascular exam: PRESENT: RRR. ABSENT: diastolic murmur, rubs, systolic mu rmur GI/Abdominal exam: PRESENT: normal bowel sounds, soft. ABSENT: distended, guarding, mass, organolmegaly, rebound, tenderness Rectal exam: PRESENT: deferred Gentrourinary exam: PRESENT: indwelling catheter - Urethral bleeding Extremities exam: PRESENT: full ROM, other - Muscle wasting. ABSENT: calf tenderness, clubbing, pedal edema Musculoskeletal exam: PRESENT: normal inspection Neurological exam: PRESENT: altered, other - Sedated Skin exam: PRESENT: dry, intact, warm. ABSENT: cyanosis, rash Tubes/Lines: PRESENT: Endotracheal Tube, Central Line, Arterial Catheter, Nasogastic Tube Laboratory/Radiographs Laboratory Results: 05/31/20 04:10 05/31/20 04:10 05/31/20 05/31/2020 04:10 04:10 04:13 WBC 18.9 H RBC 4.24 L Hgb 12.9 L Hct 39.1 MCV 92 MCH 30.5 MCHC 33.1 RDW 14.8 H Plt Count 138 L Seg Neutrophils % Not Reportable Sodium 136.0 L Potassium 4.6 Chloride 107 Carbon Dioxide 25 Anion Gap 4 L BUN 68 H Creatinine 1.64 H Est GFR ( Amer) 50 L Glucose 310 H Calcium 8.3 L Phosphorus 3.0 Magnesium 1.9 Prealbumin 17.0 L Urine Color YELLOW Urine Appearance CLOUDY Urine pH 5.0 Ur Specific [place] 1.010 Urine Protein NEGATIVE Urine Glucose (UA) >=500 H Urine Ketones NEGATIVE Urine Blood LARGE H Urine Nitrite POSITIVE H Ur Leukocyte Esterase LARGE H Urine WBC (Auto) 84 Urine RBC (Auto) >182 05/10/20 05/10/20 05/11/20 17:46 17:46 02:34 Creatine Kinase 620 H CK-MB (CK-2) 4.33 Troponin I < 0.012 NT-Pro-B Natriuret Pep 05/14/20 05/15/20 05/15/20 12:18 04:45 04:45 Creatine Kinase CK-MB (CK-2) 0.79 Troponin I < 0.012 < 0.012 NT-Pro-B Natriuret Pep 05/17/20 05/24/20 04:31 03:40 Creatine Kinase CK-MB (CK-2) Troponin I NT-Pro-B Natriuret Pep 237 61 Impressions: Venous Doppler Study 05/13/20 00:00 IMPRESSION: 1. No sonographic evidence for lower extremity deep venous thrombosis in either leg. Chest X-Ray 05/31/20 05:00 IMPRESSION: STABLE APPEARANCE OF THE CHEST. All labs, radiographs, diagnostic studies and EKGs were personally reviewed: Yes In addition, reports of radiographic and diagnostic studies were read: Yes Assessment and Plan - Diagnosis (1) Acute hypoxemic respiratory failure due to COVID-19 Is this a current diagnosis for this admission?: Yes Plan: This got acutely worse. He did not drop his saturations but became obtunded and had agonal respirations. Intubated by anesthesia. (2) Delirium Is this a current diagnosis for this admission?: Yes Plan: Worse at the time of intubation. Now on sedation (3) Hypertension Qualifiers: Hypertension type: essential hypertension Qualified Code(s): I10 - Essential (primary) hypertension Is this a current diagnosis for this admission?: Yes Plan: Blood pressure low on positive pressure. (4) Leukocytosis Qualifiers: Leukocytosis type: unspecified Qualified Code(s): D72.829 - Elevated white blood cell count, unspecified Is this a current diagnosis for this admission?: Yes Plan: Rising to 18K. Plan Summary: Plan to leave intubated, stabilize BP Critical Time Critical Time (minutes): 40 Level of Care: ICU Anticipated discharge: SNF Within: Other -: 1. The care of a critical patient is a dynamic process. This note is a territory service representative synopsis but static in nature. The timeframe for treatments given in order is not necessarily the actual time these treatments may have been done. 2. This patient requires critical care secondary to ongoing requirements for therapy not offered or safe outside the critical care environment. Transfer to a lower level of care will result in altered life or limb morbidity and mortality. 3. Multidisciplinary rounds completed. 4. ABCDE bundle addressed.
--- NOTE | 2020-05-31 13:24 | Progress Note ---
Provider Note Provider Note: A-line placed sterily in R femoral artery.
--- NOTE | 2020-05-31 14:28 | RADIOLOGY REPORT (SQ) ---
EXAM DESCRIPTION: CHEST SINGLE VIEW IMAGES COMPLETED DATE/TIME: 05/31/2020 1:48 pm REASON FOR STUDY: Just intubated. COMPARISON: Earlier the same day. EXAM PARAMETERS: NUMBER OF VIEWS: One view. TECHNIQUE: Single frontal radiographic view of the chest acquired. RADIATION DOSE: NA LIMITATIONS: None. FINDINGS: LUNGS AND PLEURA: Endotracheal tube is been placed. Tip lies 2 cm above the meng. Cent ral line remains in place. Persistent diffuse bilateral interstitial alveolar airspace disease. MEDIASTINUM AND HILAR STRUCTURES: No masses. Contour normal. HEART AND VASCULAR STRUCTURES: Heart normal in size. Normal vasculature. BONES: No acute findings. HARDWARE: None in the chest. OTHER: No other significant finding. IMPRESSION: Endotracheal tube is been placed and is in satisfactory position. Persistent diffuse bi lateral airspace disease. TECHNICAL DOCUMENTATION: JOB ID: [id number] [employer]- All Rights Reserved Reading location - IP/workstation name: [email or web address]
[2020-05-31] MEDS ORDERED: FENTANYL CITRATE INJ/PF 100 MCG/2 ML AMPUL IV PRN (14:32)
[2020-05-31] MEDS ORDERED: FENTANYL CITRATE INJ/PF 100 MCG/2 ML AMPUL ONE (14:34)
[2020-05-31] MEDS: INSULIN GLARGINE,HUM.REC.ANLOG 1,000 UNIT/10 ML VIAL SUBCUT SCH ×2 (14:41→23:16)
[2020-05-31] MEDS: FAMOTIDINE INJ/PF 20 MG/2 ML SDV IV SCH ×2 (14:42→23:16)
[2020-05-31] MEDS ORDERED: HYDROCORTISONE SOD SUCCINATE INJ/PF 100 MG/2 ML SDV IV ONE (16:00)
[2020-05-31] MEDS ORDERED: MORPHINE SULFATE 10 MG/ML INJ IV ONE (16:00)
[2020-05-31] MEDS: FAT EMULSIONS 250 ML IV SCH (16:19)
[2020-05-31] MEDS: DEXAMETHASONE SOD PHOS INJ 10 MG/1 ML VIAL IV SCH (16:20)
[2020-05-31] MEDS ORDERED: NOREPINEPHRINE BITARTRATE INJ/PF 4 MG/4 ML SDV IV ONE (16:29)
[2020-05-31] MEDS ORDERED: AMINO ACIDS 5 %/DEXTROSE 20 % 1,000 ML IV PRN (18:00)
[2020-05-31] MEDS: NOREPINEPHRINE BITARTRATE IV PRN ×2 (19:10)
[2020-05-31] MEDS: NORMAL SALINE IV PRN ×2 (19:10)
[2020-05-31 19:31] LABS: ARTERIAL BLOOD BASE EXCESS -12.7 mmol/L; ARTERIAL BLOOD H2CO3 1.23 mmol/L (1.05-1.35); ARTERIAL BLOOD PCO2 40.9 mmHg (35-45); ARTERIAL BLOOD TOTAL CO2 16.3 mmol/L (23-27)
[2020-05-31 19:37] LABS: ARTERIAL BLOOD FIO2 100%; ARTERIAL BLOOD PH 7.18 (7.35-7.45)
[2020-05-31] MEDS ORDERED: DEXAMETHASONE SOD PHOSPHATE INJ 4 MG/1 ML VIAL IV SCH (20:00)
[2020-05-31 20:43] LABS: ARTERIAL BLOOD BASE EXCESS -12.6 mmol/L; ARTERIAL BLOOD H2CO3 1.13 mmol/L (1.05-1.35); ARTERIAL BLOOD HCO3 14.5 mmol/L (20-24); ARTERIAL BLOOD O2 SATURATION 88.7 % (94-98); ARTERIAL BLOOD PCO2 37.5 mmHg (35-45); ARTERIAL BLOOD PH 7.21 (7.35-7.45); ARTERIAL BLOOD PO2 65.7 mmHg (80-100); ARTERIAL BLOOD TOTAL CO2 15.6 mmol/L (23-27)
[2020-05-31 20:46] LABS: ARTERIAL BLOOD FIO2 100%
[2020-05-31] MEDS ORDERED: SODIUM BICARBONATE 8.4% INJ 50 MEQ/50 ML DISP.SYRIN IV ONE ×4 (21:46→22:20)
[2020-05-31] MEDS ORDERED: MIDAZOLAM 2 MG/2 ML INJ ONE (21:52)
[2020-05-31] MEDS ORDERED: EPINEPHRINE INJ 1 MG/10 ML DISP.SYRIN IV ONE ×5 (21:57→22:53)
[2020-05-31] MEDS ORDERED: QUETIAPINE FUMARATE 100 MG TABLET NG SCH (22:00)
[2020-05-31] MEDS ORDERED: MIDAZOLAM 2 MG/2 ML INJ IV ONE (22:03)
[2020-05-31] MEDS ORDERED: PHENYLEPHRINE HCL INJ/PF 10 MG/1 ML SDV IV ONE (22:18)
[2020-05-31] MEDS ORDERED: DEXTROSE 5%-WATER 1000 ML 1,000 ML with SODIUM BICARBONATE 150 MEQ IV PRN ×2 (22:30)
[2020-05-31 22:34] LABS: ARTERIAL BLOOD BASE EXCESS -7.1 mmol/L; ARTERIAL BLOOD FIO2 100%; ARTERIAL BLOOD H2CO3 1.17 mmol/L (1.05-1.35); ARTERIAL BLOOD HCO3 18.7 mmol/L (20-24); ARTERIAL BLOOD O2 SATURATION 94.7 % (94-98); ARTERIAL BLOOD PCO2 38.9 mmHg (35-45); ARTERIAL BLOOD PO2 79.7 mmHg (80-100); ARTERIAL BLOOD TOTAL CO2 19.9 mmol/L (23-27)
[2020-05-31] MEDS ORDERED: EPINEPHRINE INJ/PF 1 MG/1 ML AMPULE ONE (22:42)
[2020-05-31 22:49] LABS: ARTERIAL BLOOD BASE EXCESS -9.4 mmol/L; ARTERIAL BLOOD HCO3 20.2 mmol/L (20-24); ARTERIAL BLOOD O2 SATURATION 63.5 % (94-98); ARTERIAL BLOOD PO2 43.6 mmHg (80-100); ARTERIAL BLOOD TOTAL CO2 22.1 mmol/L (23-27)
[2020-05-31 22:50] LABS: ARTERIAL BLOOD FIO2 100%
[2020-05-31 22:51] LABS: ARTERIAL BLOOD PH 7.12 (7.35-7.45)
[2020-05-31] MEDS ORDERED: DEXTROSE 5%-WATER 250 ML with EPINEPHRINE/PF 1 MG IV PRN ×2 (23:00)
[2020-05-31] MEDS: HYDROCORTISONE SOD SUCCINATE INJ/PF 100 MG/2 ML SDV IV SCH (23:15)
--- NOTE | 2020-05-31 23:21 | RADIOLOGY REPORT (SQ) ---
EXAM DESCRIPTION: XR CHEST 1 VIEW COMPLETED DATE/TME: 05/31/2020 00:00 CLINICAL HISTORY: 79 years, Male, hypoxia EXAM DESCRIPTION: CLINICAL HISTORY: hypoxia COMPARISON: Same day at 1347 hours FINDINGS: Single view of the chest is submitted. Tip of the ET tube is again low and located at T5-6, at the meng. Repositioning is likely desirable. Right IJ central catheter tip is at the distal SVC. Diffuse haziness with bilateral pulmonary edema is again seen and has slightly worsened. Cardiac silhouette is normal. IMPRESSION: Low ET tube position. Repositioning will likely be desirable. Increasing pulmonary edema.
[2020-06-01] MEDS: DEXMEDETOMIDINE IN 0.9 % NACL 400 MCG/100 ML RTUPB IV PRN ×2 (00:30→06:30)
[2020-06-01] MEDS ORDERED: DOBUTAMINE HCL/D5W 500 MG/250 ML RTUINJ IV PRN (01:13)
[2020-06-01] MEDS: NORMAL SALINE IV PRN ×2 (01:45)
[2020-06-01] MEDS: NOREPINEPHRINE BITARTRATE IV PRN ×2 (01:45)
[2020-06-01] MEDS: INSULIN REG, HUMAN 100 UNIT/ML 3 ML VIAL (PYX) SUBCUT SCH ×2 (02:06→06:41)
[2020-06-01 02:29] LABS: ARTERIAL BLOOD BASE EXCESS -7.5 mmol/L; ARTERIAL BLOOD FIO2 100%; ARTERIAL BLOOD H2CO3 1.56 mmol/L (1.05-1.35); ARTERIAL BLOOD HCO3 20.6 mmol/L (20-24); ARTERIAL BLOOD O2 SATURATION 75.9 % (94-98); ARTERIAL BLOOD PCO2 51.9 mmHg (35-45); ARTERIAL BLOOD PH 7.22 (7.35-7.45); ARTERIAL BLOOD PO2 48.7 mmHg (80-100); ARTERIAL BLOOD TOTAL CO2 22.2 mmol/L (23-27)
[2020-06-01] MEDS ORDERED: SODIUM BICARBONATE 8.4% INJ 50 MEQ/50 ML DISP.SYRIN ONE ×5 (02:41→10:00)
[2020-06-01] MEDS ORDERED: EPINEPHRINE INJ/PF 1 MG/1 ML AMPULE ONE ×3 (03:08→07:22)
[2020-06-01] MEDS ORDERED: EPINEPHRINE INJ 1 MG/10 ML DISP.SYRIN ONE ×3 (03:35→10:00)
[2020-06-01 03:42] LABS: ARTERIAL BLOOD BASE EXCESS 6.5 mmol/L; ARTERIAL BLOOD H2CO3 1.73 mmol/L (1.05-1.35); ARTERIAL BLOOD HCO3 33.2 mmol/L (20-24); ARTERIAL BLOOD O2 SATURATION 73.5 % (94-98); ARTERIAL BLOOD PCO2 57.6 mmHg (35-45); ARTERIAL BLOOD PH 7.38 (7.35-7.45); ARTERIAL BLOOD TOTAL CO2 34.9 mmol/L (23-27)
[2020-06-01 03:43] LABS: ARTERIAL BLOOD FIO2 100%
[2020-06-01 03:45] LABS: ARTERIAL BLOOD PO2 40.6 mmHg (80-100)
[2020-06-01] MEDS: ALBUTEROL SULFATE 0.083% NEB 2.5 MG/3 ML AMPUL NEB SCH ×3 (03:45→13:22)
[2020-06-01 03:55] LABS: HEMATOCRIT 32.9 % (37.9-51.0); HEMOGLOBIN 10.9 g/dL (13.5-17.0); MEAN CORPUSCULAR HEMOGLOBIN 30.4 pg (27.0-33.4); MEAN CORPUSCULAR HGB CONC 33.3 g/dL (32.0-36.0); MEAN CORPUSCULAR VOLUME 91 fl (80-97); PLATELET COUNT 112 10^3/uL (150-450); RED CELL DISTRIBUTION WIDTH 14.9 % (11.5-14.0)
[2020-06-01] MEDS ORDERED: SODIUM BICARBONATE 8.4% INJ 50 MEQ/50 ML DISP.SYRIN IV ONE ×3 (04:00)
[2020-06-01] MEDS ORDERED: EPINEPHRINE INJ 1 MG/10 ML DISP.SYRIN IV ONE ×2 (04:15)
[2020-06-01 04:16] LABS: WHITE BLOOD COUNT 46.3 10^3/uL (4.0-10.5)
[2020-06-01 04:19] LABS: ABSOLUTE MONOCYTES # (MANUAL) 0.5 10^3/uL (0.1-1.4); BAND NEUTROPHILS % (MANUAL) 5 % (3-5); BASOPHILS % (MANUAL) 0 % (0-2); EOSINOPHILS % (MANUAL) 0 % (0-6); LYMPHOCYTES % (MANUAL) 0 % (13-45); MONOCYTES % (MANUAL) 1 % (3-13); SEGMENTED NEUTROPHILS % (MAN) 94 % (42-78); TOTAL CELLS COUNTED 100
[2020-06-01] MEDS ORDERED: VANCOMYCIN HCL INJ 1000 MG VIAL IV ONE (04:19)
[2020-06-01 04:20] LABS: ANISOCYTOSIS SLIGHT; OVALOCYTES SLIGHT; PLATELET COMMENT ADEQUATE; POIKILOCYTOSIS SLIGHT; SCHISTOCYTES SLIGHT; TOXIC GRANULATION 1+; TOXIC VACUOLATION PRESENT
[2020-06-01] MEDS ORDERED: PIPERACILLIN/TAZOBACTAM 4.5 GM VIAL IV PRN (04:48)
[2020-06-01] MEDS ORDERED: VANCOMYCIN HCL INJ 1000 MG VIAL IV PRN (05:01)
[2020-06-01] MEDS ORDERED: VANCOMYCIN HCL 1,000 MG in DEXTROSE 5%-WATER 250 ML IV ONE (05:15)
[2020-06-01] MEDS ORDERED: EPINEPHRINE IV PRN ×4 (05:17→08:12)
[2020-06-01] MEDS ORDERED: DEXTROSE 5% IV PRN ×4 (05:17→08:12)
[2020-06-01] MEDS ORDERED: WATER IV PRN ×4 (05:17→08:12)
[2020-06-01] MEDS: HYDROCORTISONE SOD SUCCINATE INJ/PF 100 MG/2 ML SDV IV SCH (05:45)
[2020-06-01] MEDS ORDERED: PIPERACILLIN/TAZOBACTAM 4.5 GM VIAL IV ONE (05:57)
[2020-06-01] MEDS ORDERED: PIPERACILLIN SODIUM/TAZOBACTAM 4.5 GM in NORMAL SALINE 100 ML IV SCH (06:00)
[2020-06-01] MEDS ORDERED: PIPERACILLIN/TAZOBACTAM 4.5 GM VIAL IV SCH (06:00)
[2020-06-01 06:05] LABS: ARTERIAL BLOOD BASE EXCESS 2.8 mmol/L; ARTERIAL BLOOD FIO2 100%; ARTERIAL BLOOD H2CO3 1.88 mmol/L (1.05-1.35); ARTERIAL BLOOD HCO3 30.6 mmol/L (20-24); ARTERIAL BLOOD O2 SATURATION 64.2 % (94-98); ARTERIAL BLOOD PCO2 62.5 mmHg (35-45); ARTERIAL BLOOD PH 7.31 (7.35-7.45); ARTERIAL BLOOD TOTAL CO2 32.5 mmol/L (23-27)
[2020-06-01 06:07] LABS: ARTERIAL BLOOD PO2 37.3 mmHg (80-100)
[2020-06-01 06:14] LABS: ALBUMIN 1.7 g/dL (3.5-5.0); ALKALINE PHOSPHATASE 290 U/L (38-126); ASPARTATE AMINO TRANSFERASE 659 U/L (17-59); BILIRUBIN,DIRECT 1.7 mg/dL (0.0-0.4); BILIRUBIN,TOTAL 2.2 mg/dL (0.2-1.3); BLOOD UREA NITROGEN 89 mg/dL (7-20); GLUCOSE 96 mg/dL (75-110); POTASSIUM 4.1 mmol/L (3.6-5.0); TOTAL PROTEIN 4.3 g/dL (6.3-8.2)
[2020-06-01 06:19] LABS: CARBON DIOXIDE 34 mmol/L (22-30); CHLORIDE 110 mmol/L (98-107)
[2020-06-01 06:39] LABS: ANION GAP 2 (5-19); CALCIUM 6.2 mg/dL (8.4-10.2)
[2020-06-01] MEDS: NORMAL SALINE 250 ML with ARGATROBAN 250 MG IV PRN ×2 (07:03)
[2020-06-01] MEDS ORDERED: VASOPRESSIN INJ 20 UNIT/1 ML VIAL ONE (07:25)
[2020-06-01] MEDS: BUDESONIDE NEB 0.25 MG/2 ML AMPUL NEB SCH (07:59)
--- NOTE | 2020-06-01 08:10 | PDOC CRITICAL CARE PROG REPORT ---
General Date:: 06/01/20 ICU Day:: 19 Ventilator Day:: 2 Hospital Day:: 23 Resuscitation Status: Full Code Events in the past 12 to 24 Hours:: Intubated and now in septic shock. Review of systems relevant to events:: Pulmonary Reason for ICU Addmission:: Now intubated. COVID-19. - Medications: Medications reviewed and adjusted accordingly: Yes Vasopressors:: Epinephrine and norepinephrine. Sedation:: Precedex Physical Exam Vital Signs: Temp Pulse Resp BP Pulse Ox 100.7 F H 117 H 43 H 111/41 L 91 L 06/01/20 05:20 06/01/20 03:45 06/01/20 06:00 05/31/20 20:00 06/01/20 06:00 Intake & Output 05/31/20 06/01/20 06/02/20 06:59 06:59 06:59 Intake Total 296 2527 4 Output Total 2975 1015 Balance -2679 1512 4 Weight 70.6 kg 71.7 kg Weight/Height Weight 71.7 kg Height 5 ft 8 in General appearance: PRESENT: mild distress Head exam: PRESENT: atraumatic, normocephalic Eye exam: PRESENT: conjunctiva pink, EOMI, PERRLA. ABSENT: scleral icterus Ear exam: PRESENT: normal external ear exam Mouth exam: PRESENT: moist, tongue midline Respiratory exam: PRESENT: clear to auscultation shanna, crackles - Coarse. ABSENT: rales, rhonchi, wheezes Cardiovascular exam: PRESENT: tachycardia Pulses: PRESENT: normal dorsalis pedis pul GI/Abdominal exam: PRESENT: normal bowel sounds, soft. ABSENT: distended, guarding, mass, organolmegaly, rebound, tenderness Rectal exam: PRESENT: deferred Gentrourinary exam: PRESENT: indwelling catheter Extremities exam: PRESENT: full ROM, other - Muscle wasting. ABSENT: calf tenderness, clubbing, pedal edema Musculoskeletal exam: PRESENT: normal inspection Neurological exam: PRESENT: other - Sedated Skin exam: PRESENT: dry, intact, warm. ABSENT: cyanosis, rash Tubes/Lines: PRESENT: Endotracheal Tube, Central Line, Arterial Catheter, Nasogastic Tube Laboratory/Radiographs Laboratory Results: 06/01/20 05:35 06/01/20 05:35 07/20/20 07/20/20 07/20/20 12:53 14:02 19:20 WBC RBC Hgb Hct MCV MCH MCHC RDW Plt Count Seg Neutrophils % Carbonic Acid 1.35 1.23 HCO3/H2CO3 Ratio 10:1 12:1 ABG pH 7.12 L* 7.18 L* ABG pCO2 45.0 40.9 ABG pO2 65.5 L 35.0 L* ABG HCO3 14.4 L 15.0 L ABG O2 Saturation 85.7 L 54.0 L ABG Base Excess -14.3 -12.7 FiO2 100% 100% Sodium Potassium Chloride Carbon Dioxide Anion Gap BUN Creatinine Est GFR ( Amer) Glucose Lactic Acid 4.2 H Calcium Total Bilirubin AST Alkaline Phosphatase Total Protein Albumin Triglycerides 05/31/20 05/31/20 05/31/20 20:20 20:20 20:20 WBC RBC Hgb Hct MCV MCH MCHC RDW Plt Count Seg Neutrophils % Carbonic Acid 1.13 HCO3/H2CO3 Ratio 12:1 ABG pH 7.21 L ABG pCO2 37.5 ABG pO2 65.7 L ABG HCO3 14.5 L ABG O2 Saturation 88.7 L ABG Base Excess -12.6 FiO2 100% Sodium Potassium Chloride Carbon Dioxide Anion Gap BUN Creatinine Est GFR ( Amer) Glucose Lactic Acid 3.0 H Calcium Total Bilirubin AST Alkaline Phosphatase Total Protein Albumin Triglycerides 274 H 05/31/20 05/31/20 06/01/20 21:58 22:35 02:10 WBC RBC Hgb Hct MCV MCH MCHC RDW Plt Count Seg Neutrophils % Carbonic Acid 1.17 1.90 H 1.56 H HCO3/H2CO3 Ratio 15:1 10:1 13:1 ABG pH 7.30 L 7.12 L* 7.22 L ABG pCO2 38.9 63.0 H 51.9 H ABG pO2 79.7 L 43.6 L 48.7 L ABG HCO3 18.7 L 20.2 20.6 ABG O2 Saturation 94.7 63.5 L 75.9 L ABG Base Excess -7.1 -9.4 -7.5 FiO2 100% 100% 100% Sodium Potassium Chloride Carbon Dioxide Anion Gap BUN Creatinine Est GFR ( Amer) Glucose Lactic Acid Calcium Total Bilirubin AST Alkaline Phosphatase Total Protein Albumin Triglycerides 06/01/20 06/01/20 06/01/20 03:30 03:35 05:35 WBC 46.3 H* D RBC 3.60 L Hgb 10.9 L Hct 32.9 L MCV 91 MCH 30.4 MCHC 33.3 RDW 14.9 H Plt Count 112 L Seg Neutrophils % Not Reportable Carbonic Acid 1.73 H HCO3/H2CO3 Ratio 19:1 ABG pH 7.38 ABG pCO2 57.6 H ABG pO2 40.6 L* ABG HCO3 33.2 H ABG O2 Saturation 73.5 L ABG Base Excess 6.5 FiO2 100% Sodium Potassium Chloride Carbon Dioxide Anion Gap BUN Creatinine Est GFR ( Amer) Glucose Lactic Acid 3.4 H Calcium Total Bilirubin AST Alkaline Phosphatase Total Protein Albumin Triglycerides 06/01/20 06/01/20 06/01/20 05:35 05:35 05:35 WBC Cancelled RBC Cancelled Hgb Cancelled Hct Cancelled MCV Cancelled MCH Cancelled MCHC Cancelled RDW Cancelled Plt Count Cancelled Seg Neutrophils % Cancelled Carbonic Acid 1.88 H HCO3/H2CO3 Ratio 16:1 ABG pH 7.31 L ABG pCO2 62.5 H ABG pO2 37.3 L* ABG HCO3 30.6 H ABG O2 Saturation 64.2 L ABG Base Excess 2.8 FiO2 100% Sodium 146.4 H Potassium 4.1 Chloride 110 H Carbon Dioxide 34 H Anion Gap 2 L BUN 89 H Creatinine 3.20 H Est GFR ( Amer) 23 L Glucose 96 Lactic Acid Calcium 6.2 L* Total Bilirubin 2.2 H AST 659 H Alkaline Phosphatase 290 H Total Protein 4.3 L Albumin 1.7 L Triglycerides 05/10/20 05/10/20 05/11/20 17:46 17:46 02:34 Creatine Kinase 620 H CK-MB (CK-2) 4.33 Troponin I < 0.012 NT-Pro-B Natriuret Pep 05/14/20 05/15/20 05/15/20 12:18 04:45 04:45 Creatine Kinase CK-MB (CK-2) 0.79 Troponin I < 0.012 < 0.012 NT-Pro-B Natriuret Pep 05/17/20 05/24/20 05/31/20 04:31 03:40 20:20 Creatine Kinase CK-MB (CK-2) Troponin I NT-Pro-B Natriuret Pep 237 61 735 H 05/31/20 22:22 Creatine Kinase CK-MB (CK-2) Troponin I 0.501 NT-Pro-B Natriuret Pep Impressions: Venous Doppler Study 05/13/20 00:00 IMPRESSION: 1. No sonographic evidence for lower extremity deep venous thrombosis in either leg. Chest X-Ray 05/31/20 13:05 IMPRESSION: Endotracheal tube is been placed and is in satisfactory position. Persistent diffuse bilateral airspace disease. EKG: Pending All labs, radiographs, diagnostic studies and EKGs were personally reviewed: Yes In addition, reports of radiographic and diagnostic studies were read: Yes Assessment and Plan - Diagnosis (1) Acute hypoxemic respiratory failure due to COVID-19 Is this a current diagnosis for this admission?: Yes Plan: Worsening respiratory status. Now intubated. Clinically acting like COVID-19 but cant rule out superinfection. Antibiotics, broad spectrum ordered and administered. (2) Delirium Is this a current diagnosis for this admission?: Yes Plan: Hard to tell with critical illness and sedation. Probably still active. (3) Hypertension Qualifiers: Hypertension type: essential hypertension Qualified Code(s): I10 - Essential (primary) hypertension Is this a current diagnosis for this admission?: Yes Plan: Now on pressors. (4) Leukocytosis Qualifiers: Leukocytosis type: unspecified Qualified Code(s): D72.829 - Elevated white blood cell count, unspecified Is this a current diagnosis for this admission?: Yes Plan: It appears he is now in septic shock. (5) Septic shock Is this a current diagnosis for this admission?: Yes Plan: Now with tachypanea, tachycardia, WBC 43K, fever to 100.4 and on pressors he qualifies for septic shock which is a new finding. He has an old RIJ central line. A PICC has been ordered, this line needs to be removed once the PICC is in. He is on broad spectrum antibiotics with cultures pending. Plan Summary: His prognosis is grim given jail COVID, now septic shock and the age of 78. aware. Critical Time Critical Time (minutes): 45 Level of Care: ICU Anticipated discharge: Acute Rehab Within: Other -: 1. The care of a critical patient is a dynamic process. This note is a senior outside sales representative synopsis but static in nature. The timeframe for treatments given in order is not necessarily the actual time these treatments may have been done. 2. This patient requires critical care secondary to ongoing requirements for therapy not offered or safe outside the critical care environment. Transfer to a lower level of care will result in altered life or limb morbidity and mortality. 3. Multidisciplinary rounds completed. 4. ABCDE bundle addressed.
[2020-06-01 08:29] VITALS: BP 125/45
[2020-06-01] MEDS: INSULIN GLARGINE,HUM.REC.ANLOG 1,000 UNIT/10 ML VIAL SUBCUT SCH (09:15)
[2020-06-01] MEDS: FAMOTIDINE INJ/PF 20 MG/2 ML SDV IV SCH (09:15)
--- NOTE | 2020-06-01 09:44 | Death Summary ---
Summary Date : 06/01/20 Autopsy: No Resuscitation Status: Full Code - Final Diagnosis (1) Acute hypoxemic respiratory failure due to COVID-19 Is this a current diagnosis for this admission?: Yes (2) Delirium Is this a current diagnosis for this admission?: Yes (3) Hypertension Is this a current diagnosis for this admission?: Yes (4) Leukocytosis Is this a current diagnosis for this admission?: Yes (5) Septic shock Is this a current diagnosis for this admission?: Yes Hospital Course:: This patient was a 79 yo man diagnosed with COVID-19 about a month ago. In the hospital for about 3 weeks. He was actually slowly improving to the point where transfer to the [facility] was considered. However on May 31, he became unstable from a respiratory standpoint and became obtunded to the point where intubation occured for airway protection. He never became significantly hypoxic. He had a fairly henri night on June 01, and required pressors in the form of epinephrine and levophed. This morning he fairly suddenly lost his pulse and blood pressure. A code blue was immediately called and ACLS was instituted. After 4 rounds of epineprine he still had asystole and the code was halted and the patient pronounced at 9:15 AM. notified. Will be in.
[2020-06-01] MEDS ORDERED: ATROPINE SULFATE INJ 1 MG/10 ML DISP.SYRIN IV ONE (10:00)
[2020-06-01 14:01] LABS: PATH REVIEW PATHOLOGIST REVIEWED
--- NOTE | 2020-06-02 00:55 | Progress Note ---
Provider Note Provider Note: Provider Note Provider Note: On 05/31/2020 at approximately 2135 I was called to the bedside by the RN. Mr. Riddle at this point suddenly became hypotensive with a systolic blood pressure in the 60s and map in the 40s he was also hypoxic on pressure support with an O2 sat of 60%. ABGs were drawn and showed a pH of 7.1 which was in the 60s given my concern for cardiogenic shock I did a bedside ultrasound which showed a dilated RV as well as LV apex dyskinesia. He did have an episode of bradycardia down to the 30s given his acidosis and his severe hypotension as well as bradycardia I elected to give an amp of bicarb as well as 1 amp of epinephrine which he did respond to I then placed him on dobutamine he had Levophed running at 30 mcg and vasopressin at 0.04 which we did increase to 0.08. I started a bicarb drip 3 A in 1 L normal saline to run at 150 an hour. He did stabilize at that point. Unfortunately at approximately 2 AM he again became profoundly hypotensive at which time I stop the dobutamine give pushes of epinephrine and bicarb and started an epinephrine drip. I once again placed the ultrasound probe on his chest which showed improved contractility of the heart while on inotropes. We were able to maintain an O2 sat of 88 to 96%. His blood pressure again improved, proximately 5:15 AM he again became severely hypotensive. Passive leg lift revealed that he was fluid responsive so I therefore ordered 1 L of normal saline bolus. His blood pressure responded nicely and remained in the 120s throughout the rest of our shift. At 5 AM his ABGs revealed a pH of 7.3 and a bicarb of 32 I therefore shot the bicarb drip off. And he was maintai jem on Levophed 10 mcg vasopressin 0.04 and epinephrine at 10.
== END 2020-06-01 09:15 | DRG 208 ==
LOC: ER 11:33 → EH 16:19 → 3N 19:23 → ICU 05-14 10:15
PROVIDERS: ADMIT Internal Medicine Critical Care Medicine; ATTEND Internal Medicine Critical Care Medicine
PROC: 5A09557 Assistance with Respiratory Ventilation, Greater than 96 Consecutive Hours, Continuous Positive Airway Pressure (ICD-10-PCS; 2020-05-11)
PROC: 02HV33Z Insertion of Infusion Device into Superior Vena Cava, Percutaneous Approach (ICD-10-PCS; 2020-05-14)
PROC: 05HM33Z Insertion of Infusion Device into Right Internal Jugular Vein, Percutaneous Approach (ICD-10-PCS; 2020-05-14)
PROC: 3E0336Z Introduction of Nutritional Substance into Peripheral Vein, Percutaneous Approach (ICD-10-PCS; 2020-05-15)
PROC: 5A1935Z Respiratory Ventilation, Less than 24 Consecutive Hours (ICD-10-PCS; principal; 2020-05-31)
PROC: 0BH17EZ Insertion of Endotracheal Airway into Trachea, Via Natural or Artificial Opening (ICD-10-PCS; 2020-05-31)
DX: U07.1 COVID-19 (principal); J96.01 Acute respiratory failure with hypoxia; R65.21 Severe sepsis with septic shock; A41.89 Other specified sepsis; J12.89 Other viral pneumonia; J93.83 Other pneumothorax; E44.1 Mild protein-calorie malnutrition; Z78.1 Physical restraint status; R41.0 Disorientation, unspecified; I10 Essential (primary) hypertension; E78.49 Other hyperlipidemia; F32.9 Major depressive disorder, single episode, unspecified; J98.2 Interstitial emphysema; E09.9 Drug or chemical induced diabetes mellitus without complications; T38.0X5D Adverse effect of glucocorticoids and synthetic analogues, subsequent encounter; D64.9 Anemia, unspecified; E87.5 Hyperkalemia; R31.0 Gross hematuria; D75.82 Heparin induced thrombocytopenia (HIT); E86.0 Dehydration; E83.41 Hypermagnesemia; Z87.891 Personal history of nicotine dependence
CPT/HCPCS: 36415; 36556; 36600; 36620; 71045; 80048; 80053; 80074; 80202; 81001; 82550; 82553; 82728; 82803; 82962; 83520; 83605; 83615; 83735; 83880; 84100; 84134; 84478; 84484; 85025; 85027; 85379; 85384; 85610; 85652; 85730; 86022; 86140; 86701; 87040; 87077; 87086; 87150; 87186; 87635; 92950; 93005; 93010; 93970; 94002; 94003; 94640; 94660; 96365; 99233; 99285; 99291; 99292; C9113; C9803; J0171; J0456; J0461; J0692; J0696; J0883; J1100; J1250; J1644; J1720; J1815; J1940; J2060; J2250; J2270; J2370; J2543; J3010; J3370; J3490; J7030; J7040; J7050; J7060; J7120; J7620; S0028